=== PATIENT | female | born 1945 | race Caucasian/White ===

== ENCOUNTER 2017-05-21 16:45 | Inpatient (IN) | payer BC, OTHER ==
[~2017-05-21] VITALS: Ht 149.9 cm; Wt 63.7 kg
[2017-05-21] MEDS ORDERED: morphine 4 MG/ML VIAL IV STA (16:52)
[2017-05-21] MEDS ORDERED: ONDANSETRON 4 MG INJ IV STA ×2 (16:52→21:05)
[2017-05-21] MEDS ORDERED: SOD CHLORIDE 0.9% 1,000 ML IV STA (16:52)
--- NOTE | 2017-05-21 17:11 | ERD ---
ER Documentation Chief Complaint Chief Complaint ABD PAIN SINCE MONDAY W/ N/V HPI This is a 72-year-old female with a known history of diverticulosis and hypertension who presents to the emergency department complaining of severe abdominal cramping that has been intermittent for the past 5 days. She indicated that 5 days ago while she was lying down sleeping. The pain awoke her from her sleep. She stated it was an intense cramping sensation, 10 out of 10 in intensity where she described it as labor pains. After several hours the pain improved but did not completely resolve. She indicated that she the following day had an episode of nonbloody nonbilious emesis but denies any loose stool or constipation. She indicates she has had pain like this in the past with her last episode of diverticulitis several years prior to arrival. She has had no fevers no shaking or chills. She has had a decrease in appetite. She denies any chest pain or pressure that radiates to the neck arm back or jaw. She has no shortness of breath at rest or exertion. She took Advil but this did not improve the pain. She indicated that just prior to arrival she had a recurrence of the severe abdominal cramping which prompted her to call 911 and was brought to the emergency department for further evaluation. ROS All systems reviewed and are negative except as per history of present illness. Medications Home Meds No Active Prescriptions or Reported Meds Allergies Allergies: Coded Allergies: Penicillins (Verified Allergy, Unknown, RASH HIVES, 05/21/17) acetaminophen (Verified Allergy, Unknown, SWELLING, 05/21/17) propoxyphene (Verified Allergy, Unknown, SWELLING, 05/21/17) meperidine (Verified Adverse Reaction, Unknown, N/V, 05/21/17) propantheline (Unverified Adverse Reaction, Unknown, UNABLE TO URINATE, ) Physical Exam Vitals Vital Signs Date Time Temp Pulse Resp B/P Pulse Ox O2 Delivery O2 Flow Rate FiO2 05/21/17 19:38 99.0 77 18 137/72 98 Room Air 05/21/17 16:51 98.2 120 17 131/74 97 Physical Exam Constitutional:Well-developed. Well-nourished. HEENT:Normocephalic. Atraumatic.Pupils were equal round reactive to light. Dry mucous membranes.No tonsillar exudates. Neck: No nuchal rigidity. No lymphadenopathy. No posterior cervical spine tenderness or step-offs. Respiratory: Not using accessory muscles of respiration.Lungs were clear to auscultation bilaterally. No rhonchi. No rales. No wheezing. Cardiovascular: Regular rate regular rhythm.No murmurs. No rubs were appreciated.S1, S2 normal. Distal pulses are palpable 2+ bilaterally. GI: Abdomen was soft. Tenderness in the left lower quadrant with no rebound or guarding. Non Distended. No pulsatile abdominal masses or bruits. No rebound. No guarding. Bowel sounds were present and normal. Muscle skeletal: Full range of motion of both the upper and lower extremities bilaterally.Normal muscle tone.No assymetrical calf tenderness or swelling. Skin: No petechia, no purpura. No lesions on the palms or the soles of the feet. No maculopapular rash. NEURO: Patient was alert, awake, orientated x3.No facial droop. Gait observed and normal with no ataxia.Speech had regular rate and rhythm. No focal neurological deficits. Result Diagram: 05/21/17 1700 05/21/17 1700 Results 24 hrs Laboratory Tests Test 05/21/17 17:00 05/21/17 17:14 White Blood Count 3.710^3/ul Red Blood Count 4.5810^6/ul Hemoglobin 15.2g/dl Hematocrit 44.9% Mean Corpuscular Volume 98.0fl Mean Corpuscular Hemoglobin 33.2pg Mean Corpuscular Hemoglobin Concent 33.9g/dl Red Cell Distribution Width 13.0% Platelet Count 64569^3/UL Mean Platelet Volume 10.6fl Neutrophils % 71.6% Lymphocytes % 17.8% Monocytes % 9.3% Eosinophils % 0.3% Basophils % 0.5% Nucleated Red Blood Cells % 0.0/100WBC Neutrophils # 2.610^3/ul Lymphocytes # 0.710^3/ul Monocytes # 0.310^3/ul Eosinophils # 0.010^3/ul Basophils # 0.010^3/ul Nucleated Red Blood Cells # 0.010^3/ul Prothrombin Time 11.8Sec Prothrombin Time Ratio 0.9 INR International Normalized Ratio 0.87 Activated Partial Thromboplast Time 20.1Sec Sodium Level 139mmol/L Potassium Level 3.6mmol/L Chloride Level 97mmol/L Carbon Dioxide Level 28mmol/L Anion Gap 18 Blood Urea Nitrogen 31mg/dl Creatinine 0.84mg/dl Glucose Level 141mg/dl Calcium Level 9.2mg/dl Total Bilirubin 3.3mg/dl Direct Bilirubin 0.60mg/dl Indirect Bilirubin 2.7mg/dl Aspartate Amino Transf (AST/SGOT) 201IU/L Alanine Aminotransferase (ALT/SGPT) 172IU/L Alkaline Phosphatase 123IU/L Troponin I < 0.012ng/ml Total Protein 7.5g/dl Albumin 4.2g/dl Globulin 3.30g/dl Albumin/Globulin Ratio 1.27 Amylase Level 62U/L Lipase 58U/L Lactic Acid Level 2.1mmol/L Current Medications Medications (Trade) Dose Ordered Sig/Raegan Route PRN Reason Start Time Stop Time Status Last Admin Dose Admin Sodium Chloride (NS) 1,000 ml @ 1,000 mls/hr Q1H STAT IV 05/21/17 16:52 05/21/17 17:51 DC 05/21/17 17:29 Morphine Sulfate (morphine) 4 mg ONCE STAT IV 05/21/17 16:52 05/21/17 16:53 Cancel Ondansetron HCl (Zofran Inj) 4 mg ONCE STAT IV 05/21/17 16:52 05/21/17 16:53 DC 05/21/17 17:29 Ketorolac Tromethamine (Toradol) 30 mg ONCE STAT IV 05/21/17 17:18 05/21/17 17:19 DC 05/21/17 17:29 Ketorolac Tromethamine (Toradol) 30 mg STK-MED ONCE .ROUTE 05/21/17 17:19 05/21/17 17:20 DC Sodium Chloride 1900 ml 1,900 ml BOLUS OVER 2 HOURS STAT IV* 05/21/17 17:47 05/21/17 18:01 DC 05/21/17 19:39 Ciprofloxacin/ Dextrose 200 ml @ 200 mls/hr ONCE STAT IVPB 05/21/17 17:47 05/21/17 18:46 DC 05/21/17 19:39 Metronidazole (Flagyl 500 Mg (Pmx)) 100 ml @ 100 mls/hr ONCE STAT IVPB 05/21/17 17:47 05/21/17 18:46 DC IV Flush 10 ml 10 ml STK-MED ONCE .ROUTE 05/21/17 18:05 05/21/17 18:06 DC 05/21/17 18:18 Sodium Chloride (NS) 100 ml @ ud STK-MED ONCE .ROUTE 05/21/17 18:05 05/21/17 18:06 DC 05/21/17 18:18 Iohexol (Omnipaque 300mg/ ml) 150 ml STK-MED ONCE .ROUTE 05/21/17 18:05 05/21/17 18:06 DC 05/21/17 18:19 Procedures/MDM This patient presented to the emergency department with abdominal pain and was seen and evaluated by myself. My differential diagnosis included but was not limited to abdominal aortic aneurysm, appendicitis, pancreatitis, perforated peptic ulcer, perforated viscus, Boerhaaves syndrome or visceral pain such as diverticulitis, DKA, esophagitis, hepatitis or bowel obstruction. The patient was placed on a pvc monitor, continuous pulse oximetry, and IV access was established by nursing staff. She was given IV Toradol she is refusing opiate analgesic medication. 12 Lead EKG tracing ordered and reviewed by myself showed: Sinus tachycardia 110 bpm and no arrhythmia. AK interval normal. QRS duration normal. No ST segment elevation No ST segment depression. No changes consistent with acute ischemia. The CT scan ordered and reviewed by myself as well as the radiologist indicated that the findings were consistent with a high-grade small bowel obstruction. There is a single loop of fluid filled dilated small bowel in the location of the transition point that was concerning for possible strangulation. At this time I placed an immediate surgical consult to Dr. Mi. An NG tube was placed and roughly 800 cc of greenish gastric contents were suctioned. The patient had improvement of her discomfort. Blood cultures and urine cultures were obtained. The patient had transaminitis with an elevated lactate and was treated for sepsis. The patient received ciprofloxacin and Flagyl due to her allergy to penicillin patient had recurrent repeat abdominal examinations performed by myself at bedside. She no longer had peritoneal signs. She will be admitted to the ICU in serious condition with an anticipated stay of greater than [address] Mi will receive updates from nursing staff if her symptoms change. She will be admitted to the panel physician Dr. Lats. Patient's infectious symptoms have not stabilized and the patient is at risk of rapid decompensation. The patient will be admitted for careful hydration, antibiotic therapy, and infectious source control. Severe Sepsis Assessment: Infectious Source: SBO End organ damage indicated by: Lactate > 2.0 mmol/L Hypotension( SBP < 90 or >40 mmHG drop or MAP < 65) Severe Sepsis Managment: Blood Cultures X 2 before broad spectrum antibiotics initiated within 3 hours of recognition. 30 ml/kg NS bolus Completed Initial Lactate: 2.1 Repeat Lactate pending I considered further perfusion assessment with CVP measurement, SCVO2, bedside ultrasound volume assessment, passive leg raise, trial of further fluid bolus. And preceded with IV fluids Critical Care: Time: 60 minutes Treatments/Evaluations: Close monitoring and treatment of unstable vital signs, cardiorespiratory, and neurologic status, while maintaining tight balance of fluid, respiratory, and cardiac interventions. Time does not include performing any of the above billable procedures. Departure Diagnosis: Primary Impression: SBO (small bowel obstruction) Condition: MACO Yanes May 21, 2017 17:11
[2017-05-21] MEDS ORDERED: KETOROLAC 30 MG INJ IV STA (17:18)
[2017-05-21] MEDS ORDERED: KETOROLAC 30 MG INJ ONE (17:19)
[2017-05-21 17:26] LABS: BASOPHILS % 0.5 % (0.0-2.0); EOSINOPHILS % 0.3 % (0.0-7.0); HEMATOCRIT 44.9 % (37.0-47.0); HEMOGLOBIN 15.2 g/dl (12.0-16.0); LYMPHOCYTES # 0.7 10^3/ul (0.8-2.9); LYMPHOCYTES % 17.8 % (15.0-51.0); MEAN CORPUSCULAR HEMOGLOBIN 33.2 pg (29.0-33.0); MEAN CORPUSCULAR HGB CONC 33.9 g/dl (32.0-37.0); MEAN PLATELET VOLUME 10.6 fl (7.4-10.4); MONOCYTE # 0.3 10^3/ul (0.3-0.9); MONOCYTES % 9.3 % (0.0-11.0); NEUTROPHIL # 2.6 10^3/ul (1.6-7.5); NEUTROPHILS % 71.6 % (39.0-77.0); PLATELET COUNT 328 10^3/UL (140-415); RED BLOOD COUNT 4.58 10^6/ul (4.20-5.40); WHITE BLOOD COUNT 3.7 10^3/ul (4.8-10.8)
--- NOTE | 2017-05-21 17:29 | RADRPT ---
PROCEDURE: XR Chest. CLINICAL INDICATION: Abdominal pain TECHNIQUE: Single frontal view of the chest was obtained COMPARISON: None FINDINGS: The heart and mediastinum are within normal limits. The lungs are clear. There is no pleural effusion or pneumothorax. There are partially visualized moderately dilated loops of small bowel. RPTAT: AA IMPRESSION: No focal infiltrate. Partially visualized moderately dilated loops of small bowel. Further evaluation with CT of the abdomen is recommended. .Esteban Hutchins MD, MD Date Time Electronically viewed and signed by .Esteban Hutchins MD, on 05/21/2017 17:29 .S/
[2017-05-21 17:41] LABS: INR 0.87; PROTIME 11.8 Sec (12.2-14.2); PT RATIO 0.9
[2017-05-21 17:42] LABS: PARTIAL THROMBOPLASTIN TIME 20.1 Sec (25.0-35.0)
[2017-05-21] MEDS ORDERED: SODIUM CHLORIDE 0.9% 1L BAG IV* STA (17:47)
[2017-05-21] MEDS ORDERED: CIPROFLOXACIN 400MG/D5W 200 ML IVPB STA (17:47)
[2017-05-21] MEDS ORDERED: metroNIDAZOLE 500 MG/NS (PMX) 100 ML IVPB STA (17:47)
[2017-05-21 17:57] LABS: ALANINE AMINOTRANSFERASE 172 IU/L (13-69); ALBUMIN 4.2 g/dl (3.3-4.9); ALBUMIN/GLOBULIN RATIO 1.27; ALKALINE PHOSPHATASE 123 IU/L (42-121); AMYLASE 62 U/L (11-123); ANION GAP 18 (8-16); ASPARTATE AMINO TRANSFERASE 201 IU/L (15-46); BILIRUBIN,INDIRECT 2.7 mg/dl (0-1.1); BILIRUBIN,TOTAL 3.3 mg/dl (0.2-1.3); BLOOD UREA NITROGEN 31 mg/dl (7-20); CALCIUM 9.2 mg/dl (8.4-10.2); CARBON DIOXIDE 28 mmol/L (21-31); CHLORIDE 97 mmol/L (97-110); CREATININE 0.84 mg/dl (0.44-1.00); GLUCOSE 141 mg/dl (70-220); POTASSIUM 3.6 mmol/L (3.5-5.1); SODIUM 139 mmol/L (135-144); TOTAL PROTEIN 7.5 g/dl (6.1-8.1)
[2017-05-21] MEDS ORDERED: SOD CHLORIDE 0.9% 100 ML ONE (18:05)
[2017-05-21] MEDS ORDERED: IOHEXOL 300MG/ML 150 ML BTL ONE (18:05)
[2017-05-21 18:16] LABS: TROPONIN-I < 0.012 ng/ml (0.00-0.12)
--- NOTE | 2017-05-21 18:49 | RADRPT ---
PROCEDURE: CT ABDOMEN AND PELVIS WITH IV CONTRAST. CLINICAL INDICATION: Abdominal pain TECHNIQUE: CT scan of the abdomen and pelvis without contrast was performed on a multidetector hig h-resolution CT scanner following the use of IV contrast. 100 cc Omnipaque-300 was administered. Cor onal and sagittal reformatted images were obtained from the axial source images. Images were reviewe d on a high-resolution PACS workstation. The total exam CTDI equals 7.5 mGy and the total exam DLP e quals 401.7 mGy-cm. One or more of the following dose reduction techniques were used: Automated exposure control. Adjustment of the mA and/or kV according to patient size. Use of iterative reconstruction technique. COMPARISON: None FINDINGS: CT abdomen: Right lower lobe atelectasis and small right pleural effusion is noted. Heart size enlarged. No sign ificant pericardial effusion Hepatic morphology is within limits. There is mild perihepatic fluid. Multiple gallstones are noted within the gallbladder. No evidence of intrahepatic or traumatic dilatation. Spleen is unremarkable. The pancreas is atrophic. Both adrenal glands are within normal limits. Both kidneys are normal anatomic position. Left-sided parapelvic renal cysts are noted. The visualized GI tract demonstrates fluid-filled distension of the stomach and multiple loops of di lated small bowel. There is collapsed of loops of distal small bowel and large bowel. There appears to be a transition point within the mid lower abdomen/pelvis, at the level of the sacrum. There is f atty stranding and bowel wall enhancement of a single loop of small bowel containing fluid adjacent to the sigmoid colon. The aorta is unremarkable. No significant retroperitoneal lymphadenopathy. CT pelvis: The bladder is within limits. Uterus is not visualized. Free fluid is identified within the pelvis. No same pelvic lymphadenopathy. The visualized osseous structures demonstrate multilevel degenerative disease and anterolisthesis of L4-L5. IMPRESSION: 1. FINDINGS ARE CONSISTENT WITH HIGH-GRADE SMALL BOWEL OBSTRUCTION. There is collapsed loops of dist al small bowel and large bowel. There does to be a transition point within the mid lower abdomen/pel vis at the level of the sacrum. Consideration should include adhesions if there is history of prior surgery. 2. THERE IS A SINGLE LOOP OF FLUID-FILLED DILATED SMALL BOWEL IN THE LOCATION OF THE TRANSITION POIN T WITH ADJACENT FAT STRANDING AND BOWEL WALL ENHANCEMENT, CONCERNING FOR POSSIBLE STRANGULATION. Anjana ology should include underlying internal hernia or possible closed of obstruction. 3. Cholelithiasis. There is possible thickening of the gallbladder wall. Recommend correlation with ultrasound. 4. Upper abdominal ascites. 5. Right lower lobe atelectasis and small right pleural effusion. RPTAT: AAPP Physician Nataly Date Time Electronically viewed and signed by Bernice Ro Physician on 05/21/2017 18:49 PASCUAL/
[2017-05-21] MEDS ORDERED: ALBUTEROL/IPRATROPIUM (NEB) 3 ML AMP NEB PRN (21:00)
[2017-05-21] MEDS ORDERED: ONDANSETRON 4 MG INJ IV PRN (21:00)
[2017-05-21] MEDS ORDERED: LORAZEPAM 2 MG INJ IV PRN (21:00)
[2017-05-21] MEDS ORDERED: morphine 2 MG INJ IV PRN (21:00)
[2017-05-21] MEDS ORDERED: HYDROmorphONE 0.5 MG/0.5 ML SYG IV STA (21:05)
[2017-05-21 21:29] VITALS: TEMP 98.5
[2017-05-21 21:50] VITALS: BP 123/67; PULSE 90; RESP 17
[2017-05-21 22:07] VITALS: PULSE 94
[2017-05-21 22:30] VITALS: PULSE 84; RESP 19
[2017-05-21 23:00] VITALS: BP 105/71; PULSE 85; RESP 19
[2017-05-21 23:30] VITALS: BP 105/69; PULSE 88; RESP 17
[2017-05-21 23:31] VITALS: Ht 149.9 cm; Wt 63.7 kg
[2017-05-22] VITALS (43 sets, daily range): BP systolic 78–124; BP diastolic 38–94; PULSE 83–112; RESP 15–30
[2017-05-22] MEDS: DEXTROSE 5%-0.45% NACL 1,000 ML IV SCH ×3 (02:49→22:45)
[2017-05-22] MEDS: metroNIDAZOLE 500 MG/NS (PMX) 100 ML IVPB SCH ×4 (03:12→22:48)
[2017-05-22 05:54] LABS: HEMATOCRIT 38.8 % (37.0-47.0); HEMOGLOBIN 12.7 g/dl (12.0-16.0); MEAN CORPUSCULAR HEMOGLOBIN 32.3 pg (29.0-33.0); MEAN CORPUSCULAR HGB CONC 32.7 g/dl (32.0-37.0); MEAN CORPUSCULAR VOLUME 98.7 fl (82.0-101.0); MEAN PLATELET VOLUME 10.8 fl (7.4-10.4); PLATELET COUNT 240 10^3/UL (140-415); RED BLOOD COUNT 3.93 10^6/ul (4.20-5.40); RED CELL DISTRIBUTION WIDTH 13.1 % (11.5-14.5); WHITE BLOOD COUNT 6.2 10^3/ul (4.8-10.8)
[2017-05-22] MEDS ORDERED: PANTOPRAZOLE 40 MG INJ IV SCH (06:00)
[2017-05-22 06:10] LABS: INR 1.04; PARTIAL THROMBOPLASTIN TIME 24.7 Sec (25.0-35.0); PROTIME 13.6 Sec (12.2-14.2); PT RATIO 1.1
--- NOTE | 2017-05-22 06:14 | HP ---
Date/Time of Note Date/Time of Note DATE: 05/22/17 TIME: 06:06 Assessment/Plan VTE Prophylaxis VTE Prophylaxis Intervention: SCD's Lines/Catheters IV [facility] Peripheral IV Urinary Cath still in place: No Assessment/Plan Assessment/Plan ASSESSMENT 72-year-old female with a history of hypertension, diverticulosis, abd surgery for emdometriosis, RAVEN-BSO, appendectomy who presents with abdominal pain now with high-grade small bowel obstruction with possible strangulation PLAN ICU monitoring Keep n.p.o. NG tube to low intermittent suction IV fluids and antibiotic pain management Awaiting surgical evaluation Will obtain RUQ ultrasound given abnormal LFTs and cholelithiasis with possible gallbladder wall thickening shown CT HPI/ROS Admit Date/Time Admit Date/Time May 21, 2017 at 20:05 Hx of Present Illness This is a 72-year-old female with a history of hypertension, diverticulosis, abd surgery for emdometriosis, RAVEN-BSO, appendectomy who presented to the ER complaining of abdominal pain times almost 1 week. She also reported having had nonbloody nonbilious vomiting. Denied diarrhea or constipation. Pain acutely severely worsened and as such she decided to come to the ER for evaluation. CT abdomen/pelvis in the ER showed high grade small bowel obstruction with possible strangulation and cholelithiasis with possible gallbladder wall thickening. An NG tube was placed and about 800 cc of gastric contents was aspirated while she was in the ER. She was initially tachycardic with a heart rate of 120 and otherwise rest of her vitals were stable. Labs shows a WBC of 3.7, total bilirubin 3.3 was direct 0.6, AST 201, ALT 172 with alk phos of 128 and normal lipase of 58. Initial lactic acid was 2.1 which normalized to 1.2. PMH/Family/Social Social History Smoking Status: Never smoker Exam/Review of Systems Vital Signs Vitals Vital Signs Date Time Temp Pulse Resp B/P Pulse Ox O2 Delivery O2 Flow Rate FiO2 05/22/17 04:00 98.0 85 25 108/58 95 Room Air Intake and Output 05/21/17 05/21/17 05/22/17 15:00 23:00 07:00 Intake Total 1060 ml Balance 1060 ml Exam Constitutional: alert, oriented, well developed Head: atraumatic, normocephalic Eyes: EOMI, PERRL ENMT: other (NG tube in place) Respiratory: clear to auscultation, normal air movement Cardiovascular: regular rate and rhythm Gastrointestinal: soft, tender Extremities: normal pulses Labs Result Diagram: 05/21/17 1700 05/21/17 1700 Medications Medications Current Medications Dextrose/Sodium Chloride (D5-1/2ns) 1,000 ml @ 80 mls/hr [id number] IV Last administered on 05/22/17 02:49; Admin Dose 80 MLS/HR; Start 05/21/17 at 20:46 Ondansetron HCl (Zofran Inj) 4 mg Q6H PRN IV NAUSEA AND/OR VOMITING; Start 06/25 at 21:00 Morphine Sulfate (morphine) 2 mg Q4H PRN IV PAIN LEVEL 7-10; Start 05/21/17 at 21:00 Lorazepam (Ativan) 1 mg Q2H PRN IV ANXIETY; Start 05/21/17 at 21:00 Pantoprazole 40 mg 40 mg DAILY@06 IV Last administered on 05/22/17 05:54; Admin Dose 40 MG; Start 05/22/17 at 06:00 Ciprofloxacin/ Dextrose 200 ml @ 200 mls/hr Q12 IVPB ; Start 05/22/17 at 09:00 Metronidazole (Flagyl 500 Mg (Pmx)) 100 ml @ 100 mls/hr Q8 IVPB Last administered on 05/22/17 05:54; Admin Dose 100 MLS/HR; Start 05/22/17 at 03: 00 FITZ KELLY MD May 22, 2017 06:14
[2017-05-22 06:35] LABS: ALBUMIN 2.7 g/dl (3.3-4.9); BILIRUBIN,DIRECT 0.4 mg/dl (0.00-0.20); BILIRUBIN,INDIRECT 2.4 mg/dl (0-1.1); BILIRUBIN,TOTAL 2.8 mg/dl (0.2-1.3); CALCIUM 8.3 mg/dl (8.4-10.2); CREATININE 0.72 mg/dl (0.44-1.00); POTASSIUM 3.9 mmol/L (3.5-5.1); TOTAL PROTEIN 5.4 g/dl (6.1-8.1)
[2017-05-22 06:51] LABS: POSITIVE DIFF @See below
[2017-05-22 07:19] LABS: CALCIUM 8.1 mg/dl (8.4-10.2); PHOSPHORUS 3.7 mg/dl (2.5-4.9)
--- NOTE | 2017-05-22 08:16 | RADRPT ---
PROCEDURE: US Abdomen. CLINICAL INDICATION: abdominal pain TECHNIQUE: Multiple real-time images were acquired of the patient's right upper quadrant abdomen a nd retroperitoneum utilizing a high resolution transducer. COMPARISON: CT 05/21/2017 FINDINGS: The liver demonstrates normal echogenicity. The liver is normal in size and no focal solid lesions are seen. The liver measures 13.8 cm in length. The portal vein is patent with normal direction of f low. No intrahepatic biliary dilatation is seen. Multiple calcified gallstones are identified within the gallbladder. There is no pericholecystic fl uid or gallbladder wall thickening. The common bile duct measures 3 mm in maximal dimension. The pancreas was not seen due to overlying bowel gas. There is a right pleural effusion and a small amount of ascites. The right kidney is normal in size, and demonstrate normal echogenicity and cortical thickness. The right kidney measures 9.0 cm in long dimension. There is no evidence of hydronephrosis. There are no kidney stones. RPTAT: AA IMPRESSION: Cholelithiasis. Small amount of ascites and right pleural effusion. .Esteban Hutchins MD, MD Date Time Electronically viewed and signed by .Esteban Hutchins MD, on 05/22/2017 08:16 .S/
[2017-05-22 09:12] LABS: ERYTHROBLAST% (NRBC) (M) 1 % (0-0); GIANT THROMBO% (M) 2 % (0-0); METAMYELOCYTES %M 3 % (0-0); MONOCYTES % (M) 8 % (0-11); PLATELET ESTIMATE NORMAL; POLYCHROMASIA 3+ (0-0)
[2017-05-22] MEDS: CIPROFLOXACIN 400MG/D5W 200 ML IVPB SCH ×2 (09:18→20:36)
--- NOTE | 2017-05-22 11:57 | PN ---
Date/Time of Note Date/Time of Note DATE: 05/22/17 TIME: 11:53 Assessment/Plan VTE Prophylaxis VTE Prophylaxis Intervention: SCD's Lines/Catheters IV Catheter Type (from [facility]): Peripheral IV Urinary Cath still in place: No Assessment/Plan Assessment/Plan 72-year-old female with a history of hypertension, diverticulosis, abd surgery for endometriosis, RAVEN-BSO, appendectomy presented with abdominal pain found to have high-grade SBO with possible strangulation #SBO with possible strangulation -general surgery contacted overnight, await formal note -cont NG to LIS -cont abx -cont NPO #transaminitis -abd US with just cholecystitis -check viral hepatitis serologies and continue to trend transfer to floor, await gen surg recs Subjective 24 Hr Interval Summary Free Text/Dictation having lower abd cramping Exam/Review of Systems Vital Signs Vitals Vital Signs Date Time Temp Pulse Resp B/P Pulse Ox O2 Delivery O2 Flow Rate FiO2 05/22/17 10:30 88 21 94/56 93 Room Air 05/22/17 08:00 98.1 Intake and Output 05/21/17 05/21/17 05/22/17 15:00 23:00 07:00 Intake Total 1220 ml Output Total 0 ml Balance 1220 ml Exam uncomfortable, wearing sunglasses lungs clear abd tender to palpation in all quadrants, no bowel sounds appreciated no rashes no edema Results Result Diagram: 05/22/17 0530 05/22/17 0530 Results 24 hrs Laboratory Tests Test 05/21/17 17:00 05/21/17 17:14 05/21/17 22:24 05/22/17 05:30 White Blood Count 3.7 L 6.2 # Red Blood Count 4.58 3.93 L Hemoglobin 15.2 12.7 Hematocrit 44.9 38.8 Mean Corpuscular Volume 98.0 98.7 Mean Corpuscular Hemoglobin 33.2 H 32.3 Mean Corpuscular Hemoglobin Concent 33.9 32.7 Red Cell Distribution Width 13.0 13.1 Platelet Count 328 240 # Mean Platelet Volume 10.6 H 10.8 H Neutrophils % 71.6 Lymphocytes % 17.8 Monocytes % 9.3 Eosinophils % 0.3 Basophils % 0.5 Nucleated Red Blood Cells % 0.0 1 H Neutrophils # 2.6 Lymphocytes # 0.7 L Monocytes # 0.3 Eosinophils # 0.0 Basophils # 0.0 Nucleated Red Blood Cells # 0.0 Prothrombin Time 11.8 L 13.6 Prothrombin Time Ratio 0.9 1.1 INR International Normalized Ratio 0.87 1.04 Activated Partial Thromboplast Time 20.1 L 24.7 L Sodium Level 139 139 Potassium Level 3.6 3.9 Chloride Level 97 106 Carbon Dioxide Level 28 26 Anion Gap 18 H 11 # Blood Urea Nitrogen 31 H 24 H Creatinine 0.84 0.72 Glucose Level 141 114 Calcium Level 9.2 8.3 L Total Bilirubin 3.3 H 2.8 H Direct Bilirubin 0.60 H 0.40 #H Indirect Bilirubin 2.7 H 2.4 H Aspartate Amino Transf (AST/SGOT) 201 H 108 H Alanine Aminotransferase (ALT/SGPT) 172 H 136 H Alkaline Phosphatase 123 H 84 Troponin I < 0.012 Total Protein 7.5 5.4 #L Albumin 4.2 2.7 #L Globulin 3.30 H 2.70 Albumin/Globulin Ratio 1.27 1.00 Amylase Level 62 Lipase 58 26 Lactic Acid Level 2.1 H 1.2 1.2 Segmented Neutrophils % (Manual) 32 L Band Neutrophils % (Manual) 43 H Lymphocytes % (Manual) 14 L Monocytes % (Manual) 8 Metamyelocytes % (manual) 3 H Neutrophils # (Manual) 2.1 Band Neutrophils # 2.6 H Absolute Lymphocytes (Manual) 0.8 Absolute Monocytes (Manual) 0.4 Metamyelocytes # 0.1 H Platelet Estimate NORMAL Giant Platelets 2 H Polychromasia 3+ Phosphorus Level 3.7 Magnesium Level 1.9 B-Type Natriuretic Peptide 695 H Medications Medications Current Medications Dextrose/Sodium Chloride (D5-1/2ns) 1,000 ml @ 80 mls/hr [id number] IV Last administered on 05/22/17t 02:49; Admin Dose 80 MLS/HR; Start 05/21/17 at 20:46 Ondansetron HCl (Zofran Inj) 4 mg Q6H PRN IV NAUSEA AND/OR VOMITING; Start 06/25 at 21:00 Morphine Sulfate (morphine) 2 mg Q4H PRN IV PAIN LEVEL 7-10; Start 05/21/17 at 21:00 Lorazepam 1 mg 1 mg Q2H PRN IV ANXIETY; Start 05/21/17 at 21:00 Ciprofloxacin/ Dextrose 200 ml @ 200 mls/hr Q12 IVPB Last administered on 09:18; Admin Dose 200 MLS/HR; Start 05/22/17 at 09:00 Metronidazole (Flagyl 500 Mg (Pmx)) 100 ml @ 100 mls/hr Q8 IVPB Last administered on 05/22/17 05:54; Admin Dose 100 MLS/HR; Start 05/22/17 at 03: 00 WARREN RICHARDS MD May 22, 2017 11:57
--- NOTE | 2017-05-22 12:03 | CONS ---
Date/Time of Note Date/Time of Note DATE: 05/22/17 TIME: 11:26 Assessment/Plan Assessment/Plan Additional Assessment/Plan [facility] INPATIENT CONSULTATION NOTE DATE OF SERVICE: 05/22/2017 PLACE OF SERVICE: [facility], ICU ASSESSMENT AND PLAN: A very-pleasant 72-year-old lady with a few comorbidities including multiple operations in the past, presenting with a picture consistent with high-grade small bowel obstruction. Patient has improved slightly since admission last night, but she still remains at high risk for needing surgical exploration. Since the patient's clinical picture is stable enough, I recommended that we continue monitoring the patient in the intensive care unit very closely and if the patient worsens or does not significantly improve by tomorrow, to change our plans and explored the abdomen. I explained all of the above to the patient and family and answered all questions. Patient and family appear to understand and agreed with plans. With above assessment, I've recommended the followin. Careful monitoring in the ICU 2. Strict I's and O's 3. Please make sure that the NG tube is working and flush it with 30 cc of normal saline every shift with adequate check for sump function 4. Every 6 hours lactic acid level checks 5. Please keep me up-to-date if any clinical worsening 6. Labs in a.m. 7. N.p.o. 8. Continue broad-spectrum antimicrobials Thank you very much for having me involved in the care of this very pleasant patient and wonderful family. If you have any questions, please feel free to contact me at [phone]. Nature of presenting problem: High severity Please note that, given the multiple number of diagnoses or management options, moderate amount and/or complexity of data needed to be reviewed, and high risk of complications and/or morbidity or mortality, this qualifies as moderate complexity type of decision-making. Disclaimers: 1. Inadvertent spelling and grammatical errors are likely due to electronic health record (EHR)/dictation software used and do not reflect on the quality of delivered patient care. 2. The electronic timestamp recorded on this note does not necessarily reflect the actual date and time of the visit or the service. 3. Portions of this note may have been created through electronic templates and computer algorithms that might bring in information either from the system or from other physicians and providers. Please note that such information may or may not contain errors, the occurrence of which are outside of my control. In general (but not always) this happens either in the beginning or at the end of the note. The portion of the note that I have created are generally done in 1 continuous block of text, flanked at the beginning and at the end by " ", and entered into one field in the EHR. 4. There may be other unanticipated errors in the note that are outside of my control. I can only attest to the portions of the note that I have created. Updated clinical summary: A very-pleasant 72-year-old lady with a few comorbidities including multiple operations in the past, presenting with a picture consistent with high-grade small bowel obstruction. Comorbidities: 1. BMI 28.4 2. Hypertension 3. Diverticulosis 4. Surgery for endometriosis 5. RAEVN/BSO 6. Appendectomy (patient mentioned malignancy in the 1970s, but did not have any further details; no recent issues with malignancy, weight loss or other major concerns) 7. Cholelithiasis 8. Albumin 2.7 after resuscitation CONSULTATION REQUESTED BY: Sincere Last MD HISTORY OF PRESENT ILLNESS: The patient is a very pleasant 72-year-old lady with above-mentioned comorbidities whom you kindly asked consult regarding management of small bowel obstruction. The patient was admitted through the emergency department to [facility] on 05/21/2017 with almost 1 week history of increasing abdominal discomfort with development of nausea and vomiting that seem to be getting worse and led to patient seeking help in the emergency department. Workup in the ED included laboratory values that showed normal white blood cell count and mild to moderate derangement in liver function and injury parameters with a bilirubin of 3.3 and AST of and ALT with elevation in the 150s-200s, but normal lipase of 58. Her lactic acid was 2.[address] scan was consistent with a high-grade obstruction of distal small bowel, possibly in the pelvis. I have carefully reviewed all of the information and instructed admission of the patient to the ICU with repeat lactic acid levels within 6 hours, which fortunately were normalized to 1.2. This was after fluid resuscitation. Patient's abdominal pain had improved with medications. She had remained stable overnight. During my visit with the patient, she reported ALLERGIES: Penicillins (Verified Allergy, Unknown, RASH HIVES, 05/21/17) acetaminophen (Verified Allergy, Unknown, SWELLING, 05/21/17) propoxyphene (Verified Allergy, Unknown, SWELLING, 05/21/17) meperidine (Verified Adverse Reaction, Unknown, N/V, 05/21/17) propantheline (Unverified Adverse Reaction, Unknown, UNABLE TO URINATE, ) MEDICATIONS Documented in the electronic records and reviewed by me. Please see the electronic records for details, as well as details for inpatient medications which were also reviewed by me. SOCIAL HISTORY: The patient lives with family.-Tob;-ETOH;-IVDU FAMILY HISTORY: There are no significant medical, surgical or oncologic issues in the family as reported by the patient or reflected in the chart. REVIEW OF SYSTEMS: Other than mentioned above, there were no other pertinent positives or pertinent negatives in an otherwise complete 14 point review of systems. PHYSICAL EXAMINATION GENERAL: The patient appears to be a very pleasant lady of non- descent lying in bed, appearing stated age, and otherwise in no acute distress. BMI: 28.4 VITAL SIGNS: AVSS (please also see auto important data if available as well as the electronic records) HEENT: Normocephalic and atraumatic. Extraocular muscles and hearing are grossly intact bilaterally and symmetrically. Sclerae are nonicteric. Oral cavity is clear; oral mucosa appear to be pink and moist. Dentition: Poor. NG with bilious nonbloody output. NECK: Supple. There is no lymphadenopathy or JVD. There is no submental, submandibular or supraclavicular lymphadenopathy. CHEST: Rises symmetrically with each breath; patient is breathing comfortably. There are no audible wheezes, rales or rhonchi on the gross exam. HEART: Pulse is regular and palpable on the right wrist. Capillary refill is normal. Carotid pulses are palpable bilaterally and symmetrically in the neck. EXTREMITIES: Lower extremities contain no pitting edema around the ankles bilaterally and symmetrically. ABDOMEN: Abdomen is soft, mild to moderately tender to palpation in all quadrants and nondistended. No evidence of ascites, organomegaly, caput medusae , engorged subcutaneous veins, or other abnormalities. There are no peritoneal signs or guarding. SKIN: Appears to be pink and feels warm to touch. NEUROLOGIC: Awake, alert, and follows commands appropriately. LABORATORY DATA: See below IMAGING: See electronic chart. Please note that I've personally reviewed all pertinent available images and I agree in general with their overall reported findings. CT scan abdomen and pelvis [facility] 05/21/2017 IMPRESSION: 1. FINDINGS ARE CONSISTENT WITH HIGH-GRADE SMALL BOWEL OBSTRUCTION. There is collapsed loops of distal small bowel and large bowel. There does to be a transition point within the mid lower abdomen/pelvis at the level of the sacrum. Consideration should include adhesions if there is history of prior surgery. 2. THERE IS A SINGLE LOOP OF FLUID-FILLED DILATED SMALL BOWEL IN THE LOCATION OF THE TRANSITION POINT WITH ADJACENT FAT STRANDING AND BOWEL WALL ENHANCEMENT, CONCERNING FOR POSSIBLE STRANGULATION. Etiology should include underlying internal hernia or possible closed of obstruction. 3. Cholelithiasis. There is possible thickening of the gallbladder wall. Recommend correlation with ultrasound. 4. Upper abdominal ascites. 5. Right lower lobe atelectasis and small right pleural effusion. Consultation Date/Type/Reason Admit Date/Time May 21, 2017 at 20:05 Social History Smoking Status: Never smoker Exam/Review of Systems Vital Signs Vitals Vital Signs Date Time Temp Pulse Resp B/P Pulse Ox O2 Delivery O2 Flow Rate FiO2 05/22/17 10:30 88 21 94/56 93 Room Air 05/22/17 08:00 98.1 Intake and Output 05/21/17 05/21/17 05/22/17 14:59 22:59 06:59 Intake Total 1220 ml Output Total 0 ml Balance 1220 ml Results Result Diagram: 05/22/17 0530 05/22/17 0530 Results 24 hrs Laboratory Tests Test 05/21/17 17:00 05/21/17 17:14 05/21/17 22:24 05/22/17 05:30 White Blood Count 3.7 L 6.2 # Red Blood Count 4.58 3.93 L Hemoglobin 15.2 12.7 Hematocrit 44.9 38.8 Mean Corpuscular Volume 98.0 98.7 Mean Corpuscular Hemoglobin 33.2 H 32.3 Mean Corpuscular Hemoglobin Concent 33.9 32.7 Red Cell Distribution Width 13.0 13.1 Platelet Count 328 240 # Mean Platelet Volume 10.6 H 10.8 H Neutrophils % 71.6 Lymphocytes % 17.8 Monocytes % 9.3 Eosinophils % 0.3 Basophils % 0.5 Nucleated Red Blood Cells % 0.0 1 H Neutrophils # 2.6 Lymphocytes # 0.7 L Monocytes # 0.3 Eosinophils # 0.0 Basophils # 0.0 Nucleated Red Blood Cells # 0.0 Prothrombin Time 11.8 L 13.6 Prothrombin Time Ratio 0.9 1.1 INR International Normalized Ratio 0.87 1.04 Activated Partial Thromboplast Time 20.1 L 24.7 L Sodium Level 139 139 Potassium Level 3.6 3.9 Chloride Level 97 106 Carbon Dioxide Level 28 26 Anion Gap 18 H 11 # Blood Urea Nitrogen 31 H 24 H Creatinine 0.84 0.72 Glucose Level 141 114 Calcium Level 9.2 8.3 L Total Bilirubin 3.3 H 2.8 H Direct Bilirubin 0.60 H 0.40 #H Indirect Bilirubin 2.7 H 2.4 H Aspartate Amino Transf (AST/SGOT) 201 H 108 H Alanine Aminotransferase (ALT/SGPT) 172 H 136 H Alkaline Phosphatase 123 H 84 Troponin I < 0.012 Total Protein 7.5 5.4 #L Albumin 4.2 2.7 #L Globulin 3.30 H 2.70 Albumin/Globulin Ratio 1.27 1.00 Amylase Level 62 Lipase 58 26 Lactic Acid Level 2.1 H 1.2 1.2 Segmented Neutrophils % (Manual) 32 L Band Neutrophils % (Manual) 43 H Lymphocytes % (Manual) 14 L Monocytes % (Manual) 8 Metamyelocytes % (manual) 3 H Neutrophils # (Manual) 2.1 Band Neutrophils # 2.6 H Absolute Lymphocytes (Manual) 0.8 Absolute Monocytes (Manual) 0.4 Metamyelocytes # 0.1 H Platelet Estimate NORMAL Giant Platelets 2 H Polychromasia 3+ Phosphorus Level 3.7 Magnesium Level 1.9 B-Type Natriuretic Peptide 695 H Medications Medications Current Medications Dextrose/Sodium Chloride (D5-1/2ns) 1,000 ml @ 80 mls/hr [id number] IV Last administered on 05/22/17t 02:49; Admin Dose 80 MLS/HR; Start 05/21/17 at 20:46 Ondansetron HCl (Zofran Inj) 4 mg Q6H PRN IV NAUSEA AND/OR VOMITING; Start 06/25 at 21:00 Morphine Sulfate (morphine) 2 mg Q4H PRN IV PAIN LEVEL 7-10; Start 05/21/17 at 21:00 Lorazepam 1 mg 1 mg Q2H PRN IV ANXIETY; Start 05/21/17 at 21:00 Ciprofloxacin/ Dextrose 200 ml @ 200 mls/hr Q12 IVPB Last administered on 09:18; Admin Dose 200 MLS/HR; Start 05/22/17 at 09:00 Metronidazole (Flagyl 500 Mg (Pmx)) 100 ml @ 100 mls/hr Q8 IVPB Last administered on 05/22/17 05:54; Admin Dose 100 MLS/HR; Start 05/22/17 at 03: 00 JOSE ENRIQUE GOMEZ M.D. May 22, 2017 12:03
[2017-05-22 14:20] LABS: HEPATITIS B CORE ANTIBODY NEGATIVE (NEGATIVE)
[2017-05-22] MEDS ORDERED: HYDROmorphONE 1 MG/ML SYG IV PRN (18:30)
[2017-05-22] MEDS: HYDROmorphONE 0.5 MG/0.5 ML SYG IV PRN ×2 (20:42→22:54)
[2017-05-23] VITALS (46 sets, daily range): BP systolic 68–134; BP diastolic 49–80; PULSE 94–118; RESP 10–31
[2017-05-23] MEDS: metroNIDAZOLE 500 MG/NS (PMX) 100 ML IVPB SCH ×3 (05:44→21:01)
[2017-05-23 06:05] LABS: HEMATOCRIT 35.9 % (37.0-47.0); HEMOGLOBIN 12.2 g/dl (12.0-16.0); MEAN PLATELET VOLUME 11.4 fl (7.4-10.4); PLATELET COUNT 236 10^3/UL (140-415); RED CELL DISTRIBUTION WIDTH 13.2 % (11.5-14.5); WHITE BLOOD COUNT 7.7 10^3/ul (4.8-10.8)
[2017-05-23 06:19] LABS: INR 1.12; PARTIAL THROMBOPLASTIN TIME 29.9 Sec (25.0-35.0); PROTIME 14.4 Sec (12.2-14.2); PT RATIO 1.1
[2017-05-23 06:21] LABS: POSITIVE DIFF @See below
[2017-05-23 06:27] LABS: ALBUMIN 2.6 g/dl (3.3-4.9); ALBUMIN/GLOBULIN RATIO 0.86; BILIRUBIN,INDIRECT 1.3 mg/dl (0-1.1); BILIRUBIN,TOTAL 1.3 mg/dl (0.2-1.3); CALCIUM 8.3 mg/dl (8.4-10.2); CREATININE 0.59 mg/dl (0.44-1.00); POTASSIUM 3.3 mmol/L (3.5-5.1); TOTAL PROTEIN 5.6 g/dl (6.1-8.1)
[2017-05-23 06:33] LABS: MAGNESIUM 1.7 mg/dl (1.7-2.5); PHOSPHORUS 2.7 mg/dl (2.5-4.9)
[2017-05-23] MEDS: CIPROFLOXACIN 400MG/D5W 200 ML IVPB SCH ×2 (08:38→21:01)
--- NOTE | 2017-05-23 09:00 | RADRPT ---
PROCEDURE: Abdominal radiograph CLINICAL INDICATION: Small bowel obstruction. COMPARISON: CT from 05/21/2017. TECHNIQUE: AP view of the abdomen. FINDINGS: Multiple loops of small bowel within the upper, mid, lower abdomen are distended with air to 3.7 cm. Multiple loops of stenting small bowel. No large bowel distension with stool. No fluid levels. No suspicious calcifications. No suspicious bone abnormality. IMPRESSION: Continued air distension involving multiple loops of small bowel consistent with small bowel obstruc tion. RPTAT: PP Physician Tara Date Time Electronically viewed and signed by Physician Traa on 05/23/2017 09:00 LG/
--- NOTE | 2017-05-23 09:13 | PN ---
Date/Time of Note Date/Time of Note DATE: 05/23/17 TIME: 09:13 Assessment/Plan VTE Prophylaxis VTE Prophylaxis Intervention: SCD's Lines/Catheters IV Catheter Type (from Nrsg): Peripheral IV Urinary Cath still in place: Yes Reason Cath still needed: other (indicate) (unclear) Assessment/Plan Assessment/Plan 72-year-old female with a history of diverticulosis, abd surgery for endometriosis, RAVEN-BSO, appendectomy presented with abdominal pain found to have high-grade SBO with possible strangulation #SBO with possible strangulation -general surgery on consult -cont NG to LIS -cont abx -cont NPO -replete lytes PRN #transaminitis: improving rationale for price unclear, ?AUR? transfer to floor as per gen surg critical care time: 30 minutes Subjective 24 Hr Interval Summary Free Text/Dictation Pt reports improvement in abd pain. Still no flatus or BM Exam/Review of Systems Vital Signs Vitals Vital Signs Date Time Temp Pulse Resp B/P Pulse Ox O2 Delivery O2 Flow Rate FiO2 05/23/17 07:30 97.9 102 25 97/62 92 Room Air Intake and Output 05/22/17 05/22/17 05/23/17 15:00 23:00 07:00 Intake Total 770 ml 250 ml 200 ml Output Total 500 ml 200 ml 850 ml Balance 270 ml 50 ml -650 ml Exam nad, wearing sunglasses no mrg lungs clear abd much less ttp, no BS appreciated, area of greatest tenderness is RUQ no rashes no edema imaging noted Results Result Diagram: 05/23/17 0457 05/23/17 0457 Results 24 hrs Laboratory Tests Test 05/22/17 12:50 05/22/17 20:55 05/23/17 00:35 05/23/17 04:57 Hepatitis B Surface Antigen NEGATIVE Hepatitis B Surface Antibody NEGATIVE Hepatitis B Core Total Antibody NEGATIVE Hepatitis C Antibody NEGATIVE Lactic Acid Level 0.9 0.9 1.1 White Blood Count 7.7 # Red Blood Count 3.70 L Hemoglobin 12.2 Hematocrit 35.9 L Mean Corpuscular Volume 97.0 Mean Corpuscular Hemoglobin 33.0 Mean Corpuscular Hemoglobin Concent 34.0 Red Cell Distribution Width 13.2 Platelet Count 236 Mean Platelet Volume 11.4 H Neutrophils % Lymphocytes % Monocytes % Eosinophils % Basophils % Nucleated Red Blood Cells % 0.0 Neutrophils # Lymphocytes # Monocytes # Eosinophils # Basophils # Nucleated Red Blood Cells # Prothrombin Time 14.4 H Prothrombin Time Ratio 1.1 INR International Normalized Ratio 1.12 Activated Partial Thromboplast Time 29.9 Sodium Level 136 Potassium Level 3.3 L Chloride Level 105 Carbon Dioxide Level 24 Anion Gap 10 Blood Urea Nitrogen 17 Creatinine 0.59 Glucose Level 122 Calcium Level 8.3 L Phosphorus Level 2.7 Magnesium Level 1.7 Total Bilirubin 1.3 Direct Bilirubin 0.00 # Indirect Bilirubin 1.3 H Aspartate Amino Transf (AST/SGOT) 38 Alanine Aminotransferase (ALT/SGPT) 79 H Alkaline Phosphatase 64 B-Type Natriuretic Peptide 417 H Total Protein 5.6 L Albumin 2.6 L Globulin 3.00 Albumin/Globulin Ratio 0.86 Medications Medications Current Medications Dextrose/Sodium Chloride (D5-1/2ns) 1,000 ml @ 80 mls/hr [id number] IV Last administered on 05/22/17 22:45; Admin Dose 80 MLS/HR; Start 05/21/17 at 20:46 Ondansetron HCl 4 mg 4 mg Q6H PRN IV NAUSEA AND/OR VOMITING; Start 05/21/17 at 21:00 Ciprofloxacin/ Dextrose 200 ml @ 200 mls/hr Q12 IVPB Last administered on 08:38; Admin Dose 200 MLS/HR; Start 05/22/17 at 09:00 Metronidazole (Flagyl 500 Mg (Pmx)) 100 ml @ 100 mls/hr Q8 IVPB Last administered on 05/23/17 05:44; Admin Dose 100 MLS/HR; Start 05/22/17 at 03: 00 Hydromorphone HCl (Dilaudid) 0.5 mg Q2H PRN IV PAIN (4-7/10) Last administered on 05/22/17 22:54; Admin Dose 0.5 MG; Start 05/22/17 at 18:30 Hydromorphone HCl (Dilaudid) 1 mg Q2H PRN IV PAIN (8-10/10); Start 05/22/17 at 18:30 WARREN RICHARDS MD May 23, 2017 09:13
[2017-05-23] MEDS ORDERED: POTASSIUM CHLORIDE 250 ML IVPB ONE (09:30)
[2017-05-23] MEDS: HYDROmorphONE 0.5 MG/0.5 ML SYG IV PRN ×2 (09:42→19:41)
[2017-05-23] MEDS ORDERED: BUPIVACAINE 0.5%/EPI (SDV) 30 ML INJ ONE (10:08)
[2017-05-23] MEDS ORDERED: BUPIVACAINE 0.25% (MPF) 30 ML INJ ONE (10:20)
[2017-05-23] MEDS: DEXTROSE 5%-0.45% NACL 1,000 ML IV SCH (10:33)
[2017-05-23] MEDS ORDERED: IOHEXOL 300MG/ML 30 ML BTL ONE (12:04)
--- NOTE | 2017-05-23 14:01 | HPN ---
Date/Time of Note Date/Time of Note DATE: 05/23/17 TIME: 14:01 Interval H&P Admission Note Pt. seen H&P reviewed: No system changes Pt. seen H&P reviewed. No system changes (I attest that I have seen and examined the patient and reviewed the operation in detail, as well as its risks , benefits and alternatives of the operation). I attest that I have seen and examined the patient and reviewed in detail the operation, and its associated risks, benefits and alternative. I have answered all the patient's questions to the best of my ability and the patient wishes to proceed. Please refer to rest of electronic medical record for additional updates. JOSE ENRIQUE GOMEZ M.D. May 23, 2017 14:01
[2017-05-23] MEDS ORDERED: ROCURONIUM 50 MG INJ ONE ×2 (14:58→17:31)
[2017-05-23] MEDS ORDERED: FENTAnyl 50 MCG/ML VIAL ONE (14:58)
[2017-05-23] MEDS ORDERED: SUCCINYLCHOLINE CHLORIDE 100 MG/5 ML SYG IV ONE (14:58)
[2017-05-23] MEDS ORDERED: LIDOCAINE 2% (SDV) 5 ML INJ ONE (14:58)
[2017-05-23] MEDS ORDERED: PROPOFOL 20 ML ONE (14:58)
[2017-05-23] MEDS ORDERED: MIDAZOLAM 1 MG/ML 2 ML INJ ONE (14:58)
[2017-05-23] MEDS ORDERED: PHENYLephrine (100 MCG/ML) 5ML SYG ONE ×4 (15:15→17:43)
[2017-05-23] MEDS ORDERED: DEXAMETHASONE 4 MG/ML 1 ML INJ ONE (16:21)
[2017-05-23] MEDS ORDERED: ONDANSETRON 4 MG INJ ONE (16:21)
[2017-05-23] MEDS ORDERED: HYDROmorphONE 2 MG/ML SYG ONE (16:21)
--- NOTE | 2017-05-23 17:10 | RADRPT ---
PROCEDURE: Small bowel follow-through. CLINICAL INDICATION: Small bowel obstruction. TECHNIQUE: Water-soluble contrast was administered by the nasogastric tube and several radiographs of the abdomen were obtained. This is an incomplete study as the patient went to the operating room approximately 1 hour following contrast injection. COMPARISON: CT scan of the abdomen and pelvis dated 05/21/2017. FINDINGS: The nasogastric tube tip is in the stomach. There is dilated small bowel throughout the abdomen and pelvis. Contrast is present in the stomach and proximal jejunum. IMPRESSION: 1. Small bowel obstruction with dilated small bowel throughout the abdomen and pelvis. 2. Nasogastric tube tip in the stomach. 3. The study is incomplete as the patient with to the operating room approximately 1 hour following contrast injection into the stomach. RPTAT: QQ .Mian Harvey MD, MD Date Time Electronically viewed and signed by .Mian Harvey MD, on 05/23/2017 17:09 .R/
[2017-05-23] MEDS ORDERED: EPHEDrine SULFATE 50 MG/5 ML SYG ONE (17:16)
[2017-05-23] MEDS: D5W-0.45 NACL + KCL 20 MEQ 1,000 ML IV SCH (18:28)
[2017-05-23] MEDS ORDERED: DOCUSATE SODIUM 100 MG CAP PO PRN (18:30)
[2017-05-23] MEDS ORDERED: HYDROmorphONE 1 MG/ML SYG IV PRN (18:30)
[2017-05-23] MEDS ORDERED: NA PHOSPHATE/BIPHOS 133 ML ENEMA PR PRN (18:30)
[2017-05-23] MEDS ORDERED: BISACODYL 10 MG SUPP PR PRN (18:30)
--- NOTE | 2017-05-23 18:54 | OPR ---
Date/Time of Note Date/Time of Note DATE: 05/23/17 TIME: 18:54 Operative Report Free Text/Dictation [facility] INPATIENT OPERATIVE NOTE PLACE OF SERVICE: [facility] DATE OF SURGERY: 05/23/2017 PREOPERATIVE DIAGNOSIS: 1. Small bowel obstruction 2. BMI 28.4 3. Hypertension 4. Diverticulosis 5. Surgery for endometriosis 6. RAVEN/BSO 7. Appendectomy (patient mentioned malignancy in the 1970s, but did not have any further details; no recent issues with malignancy, weight loss or other major concerns) 8. Cholelithiasis 9. Albumin 2.7 after resuscitation POSTOPERATIVE DIAGNOSIS: 1. Small bowel obstruction with bowel strangulation within pelvis internal hernia, bowel gangrene with perforation (localized) 2. BMI 28.4 3. Hypertension 4. Diverticulosis 5. Surgery for endometriosis 6. RAVEN/BSO 7. Appendectomy (patient mentioned malignancy in the 1970s, but did not have any further details; no recent issues with malignancy, weight loss or other major concerns) 8. Cholelithiasis 9. Albumin 2.7 after resuscitation OPERATION: 1. Laparoscopic, hand-assisted reduction of internal hernia with partial enterectomy (terminal ileum, 10 cm) with primary anastomosis 2. Repair of several serosal tears (all outer serosa and no full-thickness enterotomies; approximately 6 proximal to the area of anastomosis) 3. Abdominal lavage SURGEON: Jose Enrique Gomez M.D. COAL GRADER: Bertha ANESTHESIA: General endotracheal tube anesthesia ANESTHESIOLOGIST: Arthur Pimentel M.D. BRIEF SUMMARY: An otherwise uncomplicated laparoscopic, hand-assisted reduction of internal hernia with partial enterectomy (terminal ileum, 10 cm) with primary anastomosis, repair of several serosal tears (all outer serosa and no full-thickness enterotomies; approximately 6 proximal to the area of anastomosis ) and abdominal lavage was performed with findings that were consistent with herniation of loop of terminal ileum into prior RAVEN/BSO cavity that had formed remnants of an internal ring and cause bowel strangulation, necrosis and localized perforation. Updated clinical summary: A very-pleasant 72-year-old lady with a few comorbidities including multiple operations in the past, presenting with a picture consistent with high-grade small bowel obstruction. Comorbidities: 1. BMI 28.4 2. Hypertension 3. Diverticulosis 4. Surgery for endometriosis 5. RAVEN/BSO 6. Appendectomy (patient mentioned malignancy in the 1970s, but did not have any further details; no recent issues with malignancy, weight loss or other major concerns) 7. Cholelithiasis 8. Albumin 2.7 after resuscitation BRIEF HISTORY: The patient is a very pleasant 72-year-old lady with a few comorbidities including multiple operations in the past, presenting with a picture consistent with high-grade small bowel obstruction. We spent the first 48 hours resuscitating the patient and keeping her with NG decompression. Patient did improve from a pain standpoint and remained clinically stable with normalized lactic acid levels. However she failed the Gastrografin small bowel follow-through that did not show passage of contrast even through the proximal portion of the small intestine within the first hour. For this reason, I met with the patient and family and counseled them regarding the possible options of treatment, and I strongly suggested a laparoscopic, possible open exploration with possible need for partial enterectomy and possible ostomy placement. We reviewed the operation in detail as well as the risks, benefits, alternatives, and expected outcomes of this operation. After careful consideration of all the risks, benefits, and alternatives, the patient and family appeared to understand those risks and wished to proceed with surgery. For a detailed report of my consultation with patient and family, please refer to my separate consultation note. STATEMENT OF THE INFORMED CONSENT: The patient and family appeared to understand the risks of the operation to include, but not be limited to risk of postoperative pain and scar tissue, possible infection or bleeding requiring other interventions such as opening the wound, placement of drainage catheters, or other operative interventions; possible injury to surrounding to structures including bowel, bladder, bile duct, or blood vessels, or solid organs such as liver, kidney, or pancreas requiring other interventions or procedures; possible leakage of bowel from anastomotic sites or suture lines causing significant increase in morbidity and mortality and requiring multiple interventions including but not limited to, placement of drainage catheters, imaging studies, as well as operative interventions; possible other source of sepsis such as urinary tract infections or pneumonias, or other sources of potentially life threatening problems such as deep venous thrombus formation causing pulmonary embolism, myocardial arrhythmias and infarctions, and even . After careful consideration of all their options, the patient and family appeared to understand and wished to proceed with surgery. DESCRIPTION OF PROCEDURE: After obtaining informed consent, the patient was brought into the operating room and was placed in a normal supine position, where successful general endotracheal tube anesthesia was performed. Intravenous access was already in place and intravenous antimicrobials had been appropriately chosen and dosed prior to the operation. The patient's abdominal skin was prepped and draped from the nipple line down to the level of the upper thighs in the usual sterile fashion. We then called a surgical time-out where the patient's identification, date of , nature of the operation, allergies , presence of intravenous antimicrobials, presence of needed equipment, and any other concerns were reviewed and agreed upon by all members of the operating room team. We then started the operation by placing a 5 mm skin incision in the left upper quadrant midclavicular subcostal area and introduced a 5 mm [employer] trocar into the peritoneal space using direct entry technique visualizing all the layers of the abdominal wall as we entered. Once we entered the peritoneal space, there was slight amount of clear/serous sanguinous fluid at the tip. No evidence of pus or enteric contents. We insufflated the abdominal cavity to a maximum pressure of 15 mmHg and inspected the underlying structures. Distended loops of bowel were visible. No injury to underlying structures could be seen. We then placed 2 other 5 mm trochars under direct visualization with injection of the sites with quarter percent Marcaine, 1 in the left lower quadrant and one along the previous midline scar l below the umbilicus. We then performed a limited exploration of the abdominal cavity using laparoscopy alone. I could sense that the bowel was immobile into the pelvis but I could not mobilize the bowel adequately with laparoscopic technique alone. Note that the anatomy was also consistent with the preoperative axial images a suggested strangulation of bowel within the pelvis. For this reason, I placed a 9 cm skin incision in the infraumbilical midline region using the previous incision that the patient had going through skin with a scalpel and then using cautery to go through the subcutaneous fat and the midline fascia. We took care not to injure any of the underlying distended small intestine. I then placed the GelPort device and used this to go through the rest of the operation in a laparoscopic, hand-assisted (hybrid) approach. With my hand inside, I could sense that there was a loop of small intestine that was stuck into the pelvis. I could easily get my fingers around this region in a circumferential fashion. I then used very careful digital blunt dissection to enter into the area of the pelvis. Immediately, there was presence of darker serous sanguinous fluid reminiscent of ischemic bowel that was in the pelvis area. We suctioned off this fluid immediately and did not allow it to spread into the rest of the abdominal cavity. I was then able to move my fingers around and perform further blunt dissection and eventually was able to reduce the loop of bowel that was in the hernia sac. I kept digital pressure circumferentially around the neck of the loop of bowel and used the suction device to suction of any excess fluid that was in the pelvis prior to taking the GelPort cap off and delivering the loop of bowel out into the open. We placed several towels around the's loop of bowel and isolated the loop from the rest of the surgical field. This loop of bowel appeared to be ischemic and there were 2 or 3 small showerhead type holes in the middle of it that were expressing enteric contents. We controlled this area using suction. We did send a sample of the pelvic fluid for aerobic, anaerobic, and fungal cultures. I then placed a pursestring suture using 2-0 Prolene suture around the area of the showerhead perforation and created an enterotomy and placed a 24 Nigerian chest tube catheter into this region with the point pointing proximally and secured the bowel around the chest tube using another 2-0 Prolene suture. We connected the chest tube to suction catheter but kept a clamp on the chest tube while we got ready for decompressing the proximal small intestine. With very careful coordination, I gently milked the proximal bowel into the area where the tip of the chest tube was present and we gently the goal of the suction clamp intermittently in order to remove the enteric contents as they were being milked towards the chest tube. This worked well. However, the wall of the small intestine appeared to be friable and even though I did my best to do this as gently as possible, there were several areas of slight superficial serosal tears were noted. None of these were full-thickness. Once we have finished the decompression of the small intestine, I went ahead and used 3-0 silk sutures on SH needle using Lembert technique and reinforced the 6 or 7 superficial serosal tears that were visible on the surface of bowel. This came together very nicely and there was no other further concern about the wall of the small intestine. We then removed the chest tube and closed the enterotomy site and then went ahead and resected approximately 10 cm of the terminal ileum (I ran the bowel distally and could see that it was going into the ileocecal valve with the loop located approximately 40-50 cm away from this region) using standard technique. In brief, circumferential control over proximal healthy small intestine was obtained using combination of cautery and blunt dissection using a Catrachita clamp under the bowel wall and then transection of the bowel using one firing of the bowel (blue) load of the hand-held 75 mm KAMARI stapler. Stapler fired well and there was no technical difficulties with the stapler. Staple rows appear to be nice and ship mate. We repeated this process distally again on an area of small intestine that appeared to be healthy using another firing of the same type of stapler load. We then used a LigaSure device to resect the specimen with a V shaped defect created into the mesentery. Distal portion of the bowel was marked using a silk suture and the specimen was sent to pathology for permanent sections and was termed partial enterectomy, terminal ileum. I then reconnected the small intestine use and [id number], functional end-to- end stapled anastomosis that we created in the standard fashion. In brief, we created 2 enterotomies using cautery on the antimesenteric portion of the bowel and then fired a stapler on the antimesenteric sides using a another load of the 75 mm KAMARI stapler with bowel (blue) load. Again the stapler fired well without any technical difficulties and the staple rows appear to be nice and ship mate. I then closed the enterotomy size using running 4-0 PDS suture reinforced with interrupted 3-0 silk sutures in a Lembert style. We also placed a 3-0 silk suture on the angle of sorrow. The anastomosis them together very nicely and it was widely patent. We closed the mesenteric defect using running 3-0 Vicryl suture. I then placed the small intestines back into the abdominal cavity and converted the operation again to laparoscopic hand- assisted fashion and found the ligament of Treitz region and ran the bowel away down to the ileocecal valve. The rest of the intestine appeared to be viable and there was no other issues with adhesions, compromised bowel, or other concerns. We then worked again through the hand port site in an open fashion to close the internal hernia ring using running 3-0 Vicryl suture. Converting back to laparoscopic mode, I used approximately 2-1/2 L of normal saline to irrigate all quadrants of the abdominal cavity to clear drainage. Once we were satisfied that there were no other issues, we made sure that we removed all her equipment from the abdominal cavity including the pneumoperitoneum, reapproximated the hand port fascial defect using running #1 PDS suture, washed the wounds with copious amounts of normal saline and then reapproximated the skin using interrupted skin [place]. Light dressing was then applied. At the end of the operation, both the sponge count and needle count were reportedly correct x2. The patient tolerated the procedure without any reported complications. ESTIMATED BLOOD LOSS: Less than 10 mL. BLOOD OR BLOOD PRODUCT TRANSFUSIONS: None to my knowledge. SPECIMENS: 1. 10 cm of terminal ileum partial enterectomy with suture marking the distal bowel 2. Culture from pelvic fluid for aerobic, anaerobic, and fungal analysis COMPLICATIONS: None. DISPOSITION: Recovery area. Disclaimers: 1. Inadvertent spelling and grammatical errors are likely due to electronic health record (EHR)/dictation software used and do not reflect on the quality of delivered patient care. 2. The electronic timestamp recorded on this note does not necessarily reflect the actual date and time of the visit or the service. 3. Portions of this note may have been created through electronic templates and computer algorithms that might bring in information either from the system or from other physicians and providers. Please note that such information may or may not contain errors, the occurrence of which are outside of my control. In general (but not always) this happens either in the beginning or at the end of the note. The portion of the note that I have created are generally done in 1 continuous block of text, flanked at the beginning and at the end by " ", and entered into one field in the EHR. 4. There may be other unanticipated errors in the note that are outside of my control. I can only attest to the portions of the note that I have created. JOSE ENRIQUE GOMEZ M.D. May 23, 2017 18:54
[2017-05-24] VITALS (45 sets, daily range): BP systolic 51–121; BP diastolic 14–96; PULSE 77–122; RESP 5–31
[2017-05-24] MEDS: HYDROmorphONE 0.5 MG/0.5 ML SYG IV PRN ×7 (00:49→22:22)
[2017-05-24 05:09] LABS: ABNORMAL IP MESSAGE 1; HEMATOCRIT 39.9 % (37.0-47.0); HEMOGLOBIN 13.4 g/dl (12.0-16.0); MEAN CORPUSCULAR HEMOGLOBIN 32.9 pg (29.0-33.0); MEAN CORPUSCULAR HGB CONC 33.6 g/dl (32.0-37.0); MEAN PLATELET VOLUME 11.4 fl (7.4-10.4); PLATELET COUNT 255 10^3/UL (140-415); RED BLOOD COUNT 4.07 10^6/ul (4.20-5.40); RED CELL DISTRIBUTION WIDTH 13.4 % (11.5-14.5); WHITE BLOOD COUNT 11.8 10^3/ul (4.8-10.8)
[2017-05-24 05:22] LABS: POSITIVE DIFF @See below
[2017-05-24] MEDS: D5W-0.45 NACL + KCL 20 MEQ 1,000 ML IV SCH ×2 (05:36→14:28)
[2017-05-24] MEDS: metroNIDAZOLE 500 MG/NS (PMX) 100 ML IVPB SCH ×3 (05:36→21:34)
[2017-05-24 05:47] LABS: ALBUMIN 1.9 g/dl (3.3-4.9); ALBUMIN/GLOBULIN RATIO 0.73; BILIRUBIN,INDIRECT 0.7 mg/dl (0-1.1); BILIRUBIN,TOTAL 0.7 mg/dl (0.2-1.3); CALCIUM 7.2 mg/dl (8.4-10.2); CREATININE 0.69 mg/dl (0.44-1.00); PHOSPHORUS 4.5 mg/dl (2.5-4.9); POTASSIUM 4.1 mmol/L (3.5-5.1); TOTAL PROTEIN 4.5 g/dl (6.1-8.1)
[2017-05-24 05:49] LABS: INR 1.21; PROTIME 15.4 Sec (12.2-14.2); PT RATIO 1.2
[2017-05-24 05:50] LABS: PARTIAL THROMBOPLASTIN TIME 26.7 Sec (25.0-35.0)
[2017-05-24] MEDS ORDERED: MAGNESIUM SULFATE 1 GM/D5W 100 ML IVPB ONE (09:00)
[2017-05-24] MEDS ORDERED: SOD CHLORIDE 0.9% 1,000 ML IV ONE ×3 (09:00→15:30)
[2017-05-24] MEDS ORDERED: FAMOTIDINE 20 MG INJ IV SCH (09:00)
[2017-05-24] MEDS: CIPROFLOXACIN 400MG/D5W 200 ML IVPB SCH ×2 (09:03→20:17)
[2017-05-24] MEDS: ENOXAPARIN 40 MG/0.4 ML SYG SC SCH (09:06)
[2017-05-24 09:38] LABS: LYMPHOCYTES # 0.8 10^3/ul (0.8-2.9); MONOCYTE # 0.2 10^3/ul (0.3-0.9); MONOCYTES % (M) 2 % (0-11)
--- NOTE | 2017-05-24 13:28 | PN ---
Date/Time of Note Date/Time of Note DATE: 05/24/17 TIME: 13:27 Assessment/Plan VTE Prophylaxis VTE Prophylaxis Intervention: SCD's Lines/Catheters IV Catheter Type (from Nrsg): Peripheral IV Urinary Cath still in place: Yes Reason Cath still needed: other (indicate) (critically ill?) Assessment/Plan Assessment/Plan 72-year-old female with a history of diverticulosis, multiple abd surgeries admitted for high-grade SBO with possible strangulation. sp partial enterectomy with primary anastomosis with internal hernia reduction, and repair of serosal tears 11.14 #SBO with strangulation; sp surgical intervention -general surgery on consult -PO status as per gen surg -anticipate 10 days abx. likely convert to PO tomorrow if pt continues to tolerate PO -replete lytes PRN #transaminitis: improving rationale for price unclear, ?AUR? PT/OT and transfer out of ICU when ok'd by gen surg critical care time: 30 minutes Subjective 24 Hr Interval Summary Free Text/Dictation pt very tired Exam/Review of Systems Vital Signs Vitals Vital Signs Date Time Temp Pulse Resp B/P Pulse Ox O2 Delivery O2 Flow Rate FiO2 05/24/17 12:00 98.4 05/24/17 11:30 116 12 106/64 97 Nasal Cannula 2.0 Intake and Output 05/23/17 05/23/17 05/24/17 15:00 23:00 07:00 Intake Total 1040.0 ml 5800 ml 1700 ml Output Total 330 ml 200 ml 155 ml Balance 710.0 ml 5600 ml 1545 ml Exam fatigued Results Result Diagram: 05/24/17 0400 05/24/17 0400 Results 24 hrs Laboratory Tests Test 05/24/17 04:00 05/24/17 04:32 White Blood Count 11.8 #H Red Blood Count 4.07 L Hemoglobin 13.4 Hematocrit 39.9 Mean Corpuscular Volume 98.0 Mean Corpuscular Hemoglobin 32.9 Mean Corpuscular Hemoglobin Concent 33.6 Red Cell Distribution Width 13.4 Platelet Count 255 Mean Platelet Volume 11.4 H Neutrophils % Segmented Neutrophils % (Manual) 74 Band Neutrophils % (Manual) 17 H Lymphocytes % Lymphocytes % (Manual) 7 L Monocytes % Monocytes % (Manual) 2 Eosinophils % Basophils % Nucleated Red Blood Cells % 0.0 Neutrophils # Neutrophils # (Manual) 9.0 H Band Neutrophils # 2.0 H Absolute Lymphocytes (Manual) 0.8 Lymphocytes # 0.8 Monocytes # 0.2 L Absolute Monocytes (Manual) 0.2 L Eosinophils # Basophils # Nucleated Red Blood Cells # Sodium Level 136 Potassium Level 4.1 Chloride Level 110 Carbon Dioxide Level 20 L Anion Gap 10 Blood Urea Nitrogen 13 Creatinine 0.69 Glucose Level 175 Lactic Acid Level 1.8 Calcium Level 7.2 L Phosphorus Level 4.5 Magnesium Level 1.3 L Total Bilirubin 0.7 Direct Bilirubin 0.00 Indirect Bilirubin 0.7 Aspartate Amino Transf (AST/SGOT) 21 Alanine Aminotransferase (ALT/SGPT) 52 Alkaline Phosphatase 39 L B-Type Natriuretic Peptide 1110 H Total Protein 4.5 #L Albumin 1.9 L Globulin 2.60 Albumin/Globulin Ratio 0.73 Prothrombin Time 15.4 H Prothrombin Time Ratio 1.2 INR International Normalized Ratio 1.21 Activated Partial Thromboplast Time 26.7 Medications Medications Current Medications Ondansetron HCl 4 mg 4 mg Q6H PRN IV NAUSEA AND/OR VOMITING; Start 05/21/17 at 21:00 Ciprofloxacin/ Dextrose 200 ml @ 200 mls/hr Q12 IVPB Last administered on 09:03; Admin Dose 200 MLS/HR; Start 05/22/17 at 09:00 Metronidazole 100 ml @ 100 mls/hr Q8 IVPB Last administered on 05/24/17 05: 36; Admin Dose 100 MLS/HR; Start 05/22/17 at 03:00 Potassium Chloride/Dextrose/ Sod Cl (D5-1/2ns + KCl 20 Meq) 1,000 ml @ 100 mls/ hr Q10H IV Last administered on 05/24/17 05:36; Admin Dose 100 MLS/HR; Start 05/23/17 at 18:28 Hydromorphone HCl (Dilaudid) 0.5 mg Q2 PRN IV PAIN Last administered on 08:58; Admin Dose 0.5 MG; Start 05/23/17 at 18:30 Hydromorphone HCl (Dilaudid) 1 mg Q2 PRN IV PAIN Last administered on 11:27; Admin Dose 1 MG; Start 05/23/17 at 18:30 Docusate Sodium (Colace) 100 mg BID PRN PO CONSTIPATION; Start 05/23/17 at 18: 30 Bisacodyl (Dulcolax Supp) 10 mg BID PRN CO CONSTIPATION; Start 05/23/17 at 18: 30 Sodium Biphosphate/ Sodium Phosphate (Fleet Enema) 133 ml BID PRN CO CONSTIPATION; Start 05/23/17 at 18:30 Famotidine (Pepcid Iv) 20 mg DAILY IV Last administered on 05/24/17 09:03; Admin Dose 20 MG; Start 05/24/17 at 09:00 Enoxaparin Sodium (Lovenox) 40 mg DAILY SC Last administered on 05/24/17 09: 06; Admin Dose 40 MG; Start 05/24/17 at 09:00 WARREN RICHARDS MD May 24, 2017 13:28
--- NOTE | 2017-05-24 18:22 | PN ---
Date/Time of Note Date/Time of Note DATE: 05/24/17 TIME: 09:57 Assessment/Plan Lines/Catheters IV Catheter Type (from [facility]): A Line Orta in Place (from [facility]): Yes Assessment/Plan Assessment/Plan [facility] Progress Note Date of Service: Location of Service: [facility] ICU Today's Assessment & Plan: Overall stable and doing relatively well.. Abdomen remains benign. No indications of major postoperative complications or wound problems. No indication for acute surgical intervention. Awaiting further return of bowel function. With above assessment, I've recommended the following for today: 1. Continue current cares 2. Advance diet as tolerated (I expect postoperative paralytic ileus to continue for a few days; do not advance if nausea) 3. Careful monitoring of vital signs 4. Strict I's and O's 5. Labs in a.m. 6. Increase activity 7. Incentive spirometry 8. 1 L of normal saline bolus 1 9. Continue broad-spectrum antimicrobials 10. Okay from my standpoint to transfer out of ICU Thank you again for your great care of this very pleasant patient and wonderful family. If there are any questions, please feel free to call me at [phone]. Nature of presenting problem: High severity Please note that, given the multiple number of diagnoses or management options, moderate amount and/or complexity of data needed to be reviewed, and high risk of complications and/or morbidity or mortality, this qualifies as moderate complexity type of decision-making. Disclaimers: 1. Inadvertent spelling and grammatical errors are likely due to electronic health record (EHR)/dictation software used and do not reflect on the quality of delivered patient care. 2. The electronic timestamp recorded on this note does not necessarily reflect the actual date and time of the visit or the service. 3. Portions of this note may have been created through electronic templates and computer algorithms that might bring in information either from the system or from other physicians and providers. Please note that such information may or may not contain errors, the occurrence of which are outside of my control. In general (but not always) this happens either in the beginning or at the end of the note. The portion of the note that I have created are generally done in 1 continuous block of text, flanked at the beginning and at the end by " ", and entered into one field in the EHR. 4. There may be other unanticipated errors in the note that are outside of my control. I can only attest to the portions of the note that I have created. Updated Clinical Summary: A very-pleasant 72-year-old lady with a few comorbidities including multiple operations in the past, presenting with a picture consistent with high-grade small bowel obstruction. Comorbidities: 1. Small bowel obstruction with bowel strangulation within pelvis internal hernia, bowel gangrene with perforation (localized). S/p an otherwise uncomplicated laparoscopic, hand-assisted reduction of internal hernia with partial enterectomy (terminal ileum, 10 cm) with primary anastomosis, repair of several serosal tears (all outer serosa and no full-thickness enterotomies; approximately 6 proximal to the area of anastomosis) and abdominal lavage at [facility] 05/23/17 with findings that were consistent with herniation of loop of terminal ileum into prior RAVEN/BSO cavity that had formed remnants of an internal ring and cause bowel strangulation, necrosis and localized perforation. 2. BMI 28.4 3. Hypertension 4. Diverticulosis 5. Surgery for endometriosis 6. RAVEN/BSO 7. Appendectomy (patient mentioned malignancy in the 1970s, but did not have any further details; no recent issues with malignancy, weight loss or other major concerns) 8. Cholelithiasis 9. Albumin 2.7 after resuscitation Subjective: No major events or complaints; no abd pain and under control with medications; no n/v/d; no sob or cp; bowel activity; - activity Objective: Vitals: See below Exam: GENERAL: On exam, the patient was laying in bed and appeared to be comfortable and in no acute distress. ABDOMEN: Soft, nontender and nondistended. Incision dressings are clean, dry and intact without any evidence of obvious underlying erythema, edema, discharge , or hernia. There are no peritoneal signs or guarding. SKIN: Skin appears to be pink and feels warm to touch. NEUROLOGIC: Patient is awake, alert, and follows commands appropriately. Exam/Review of Systems Vital Signs Vitals Vital Signs Date Time Temp Pulse Resp B/P Pulse Ox O2 Delivery O2 Flow Rate FiO2 05/24/17 17:55 99 3.0 05/24/17 16:00 98.7 14 120/82 Nasal Cannula 05/24/17 16:00 119 Intake and Output 05/23/17 05/23/17 05/24/17 14:59 22:59 06:59 Intake Total 1070.0 ml 5750 ml 1800 ml Output Total 330 ml 185 ml 155 ml Balance 740.0 ml 5565 ml 1645 ml Results Result Diagram: 05/24/170 05/24/170 JOSE ENRIQUE GOMEZ M.D. May 24, 2017 18:22
[2017-05-25] VITALS (18 sets, daily range): BP systolic 90–138; BP diastolic 55–81; PULSE 110–126; RESP 11–32
[2017-05-25] MEDS: D5W-0.45 NACL + KCL 20 MEQ 1,000 ML IV SCH ×3 (00:28→19:58)
[2017-05-25] MEDS: HYDROmorphONE 0.5 MG/0.5 ML SYG IV PRN ×4 (04:01→13:40)
[2017-05-25 05:20] LABS: ABNORMAL IP MESSAGE 1; HEMATOCRIT 32.5 % (37.0-47.0); HEMOGLOBIN 10.8 g/dl (12.0-16.0); MEAN CORPUSCULAR HEMOGLOBIN 32.8 pg (29.0-33.0); MEAN CORPUSCULAR HGB CONC 33.2 g/dl (32.0-37.0); MEAN CORPUSCULAR VOLUME 98.8 fl (82.0-101.0); MEAN PLATELET VOLUME 10.8 fl (7.4-10.4); PLATELET COUNT 237 10^3/UL (140-415); RED BLOOD COUNT 3.29 10^6/ul (4.20-5.40); RED CELL DISTRIBUTION WIDTH 13.5 % (11.5-14.5)
[2017-05-25 05:25] LABS: POSITIVE DIFF @See below
[2017-05-25] MEDS: metroNIDAZOLE 500 MG/NS (PMX) 100 ML IVPB SCH ×2 (05:37→13:41)
[2017-05-25 05:38] LABS: INR 1.09; PROTIME 14.1 Sec (12.2-14.2); PT RATIO 1.1
[2017-05-25 05:39] LABS: PARTIAL THROMBOPLASTIN TIME 29.1 Sec (25.0-35.0)
[2017-05-25 05:49] LABS: ALBUMIN 2.2 g/dl (3.3-4.9); ALBUMIN/GLOBULIN RATIO 0.78; BILIRUBIN,INDIRECT 0.4 mg/dl (0-1.1); BILIRUBIN,TOTAL 0.4 mg/dl (0.2-1.3); CALCIUM 7.9 mg/dl (8.4-10.2); MAGNESIUM 1.7 mg/dl (1.7-2.5); PHOSPHORUS 2.4 mg/dl (2.5-4.9); POTASSIUM 4.1 mmol/L (3.5-5.1)
[2017-05-25] MEDS: CIPROFLOXACIN 400MG/D5W 200 ML IVPB SCH ×2 (07:47→19:58)
[2017-05-25] MEDS: ENOXAPARIN 40 MG/0.4 ML SYG SC SCH (07:54)
[2017-05-25 08:13] LABS: BURR CELLS 1+ (0-0); EOSINOPHILS % (M) 1 % (0-7); METAMYELOCYTES %M 1 % (0-0); MONOCYTES % (M) 7 % (0-11); PLATELET ESTIMATE NORMAL; POIKILOCYTOSIS 3+ (0-0); POLYCHROMASIA 1+ (0-0); SPHEROCYTES 1+ (0-0)
[2017-05-25] MEDS ORDERED: VANCOMYCIN IV PER PHARMACY XX SCH (15:00)
--- NOTE | 2017-05-25 15:05 | PN ---
Date/Time of Note Date/Time of Note DATE: 05/25/17 TIME: 14:47 Assessment/Plan VTE Prophylaxis VTE Prophylaxis Intervention: SCD's Lines/Catheters IV Catheter Type (from Nrsg): Saline Lock Urinary Cath still in place: Yes Reason Cath still needed: other (indicate) (will dc) Assessment/Plan Assessment/Plan 72-year-old female with a history of diverticulosis, multiple abd surgeries admitted for high-grade SBO with possible strangulation. sp partial enterectomy with primary anastomosis with internal hernia reduction, and repair of serosal tears 11.14 #SBO with strangulation; sp surgical intervention -general surgery on consult -PO status as per gen surg -culture result viewed. While antibiotic of choice for enterococcus would be ampicillin, pt with allergy (hives). Will thus treat with vancomycin at this time cont cipro/flagyll -replete lytes PRN #transaminitis: RESOLVED rationale for price unclear, ?AUR? will dc PT/OT and discharge planning Subjective 24 Hr Interval Summary Free Text/Dictation Pt fatigued. Hasn't had a BM. No flatus, +belching Exam/Review of Systems Vital Signs Vitals Vital Signs Date Time Temp Pulse Resp B/P Pulse Ox O2 Delivery O2 Flow Rate FiO2 05/25/17 12:14 110 05/25/17 10:00 32 90/55 93 Room Air 05/25/17 08:00 98.5 05/24/17 20:00 2.0 Intake and Output 05/24/17 05/24/17 05/25/17 14:59 22:59 06:59 Intake Total 2600 ml 2615 ml 1240 ml Output Total 130 ml 125 ml 375 ml Balance 2470 ml 2490 ml 865 ml Exam nad no mrg lungs clear abd soft no rashes no edema culture with enterococcus Results Result Diagram: 05/25/17 0440 05/25/17 0440 Results 24 hrs Laboratory Tests Test 05/25/17 04:40 White Blood Count 15.0 #H Red Blood Count 3.29 L Hemoglobin 10.8 L Hematocrit 32.5 L Mean Corpuscular Volume 98.8 Mean Corpuscular Hemoglobin 32.8 Mean Corpuscular Hemoglobin Concent 33.2 Red Cell Distribution Width 13.5 Platelet Count 237 Mean Platelet Volume 10.8 H Neutrophils % Segmented Neutrophils % (Manual) 61 Band Neutrophils % (Manual) 19 H Lymphocytes % (Manual) 11 L Monocytes % (Manual) 7 Eosinophils % Eosinophils % (Manual) 1 Metamyelocytes % (manual) 1 H Nucleated Red Blood Cells % 0.0 Neutrophils # Neutrophils # (Manual) 9.6 H Band Neutrophils # 2.8 H Absolute Lymphocytes (Manual) 1.6 Absolute Monocytes (Manual) 1.0 H Eosinophils # Metamyelocytes # 0.1 H Platelet Estimate NORMAL Polychromasia 1+ Poikilocytosis 3+ Spherocytes 1+ Prothrombin Time 14.1 Prothrombin Time Ratio 1.1 INR International Normalized Ratio 1.09 Activated Partial Thromboplast Time 29.1 Sodium Level 132 L Potassium Level 4.1 Chloride Level 106 Carbon Dioxide Level 20 L Anion Gap 10 Blood Urea Nitrogen 15 Creatinine 1.00 Glucose Level 117 # Lactic Acid Level 1.3 Calcium Level 7.9 L Phosphorus Level 2.4 #L Magnesium Level 1.7 Total Bilirubin 0.4 Direct Bilirubin 0.00 Indirect Bilirubin 0.4 Aspartate Amino Transf (AST/SGOT) 19 Alanine Aminotransferase (ALT/SGPT) 51 Alkaline Phosphatase 58 B-Type Natriuretic Peptide 938 H Total Protein 5.0 L Albumin 2.2 L Globulin 2.80 Albumin/Globulin Ratio 0.78 Medications Medications Current Medications Ondansetron HCl 4 mg 4 mg Q6H PRN IV NAUSEA AND/OR VOMITING; Start 05/21/17 at 21:00 Ciprofloxacin/ Dextrose 200 ml @ 200 mls/hr Q12 IVPB Last administered on 07:47; Admin Dose 200 MLS/HR; Start 05/22/17 at 09:00 Metronidazole 100 ml @ 100 mls/hr Q8 IVPB Last administered on 05/25/17 13: 41; Admin Dose 100 MLS/HR; Start 05/22/17 at 03:00 Potassium Chloride/Dextrose/ Sod Cl (D5-1/2ns + KCl 20 Meq) 1,000 ml @ 100 mls/ hr Q10H IV Last administered on 05/25/17 07:47; Admin Dose 100 MLS/HR; Start 05/23/17 at 18:28 Hydromorphone HCl (Dilaudid) 0.5 mg Q2 PRN IV PAIN Last administered on 13:40; Admin Dose 0.5 MG; Start 05/23/17 at 18:30 Hydromorphone HCl (Dilaudid) 1 mg Q2 PRN IV PAIN Last administered on 11:27; Admin Dose 1 MG; Start 05/23/17 at 18:30 Docusate Sodium (Colace) 100 mg BID PRN PO CONSTIPATION; Start 05/23/17 at 18: 30 Bisacodyl (Dulcolax Supp) 10 mg BID PRN CA CONSTIPATION; Start 05/23/17 at 18: 30 Sodium Biphosphate/ Sodium Phosphate (Fleet Enema) 133 ml BID PRN CA CONSTIPATION; Start 05/23/17 at 18:30 Enoxaparin Sodium (Lovenox) 40 mg DAILY SC Last administered on 05/25/17 07: 54; Admin Dose 40 MG; Start 05/24/17 at 09:00 WARREN RICHARDS MD May 25, 2017 14:57
[2017-05-25] MEDS ORDERED: VANCOMYCIN 1.25 GM in SOD CHLORIDE 0.9% 250 ML IVPB ONE (16:00)
--- NOTE | 2017-05-25 17:37 | PN ---
Date/Time of Note Date/Time of Note DATE: 05/25/17 TIME: 17:33 Assessment/Plan Lines/Catheters IV Catheter Type (from Nrsg): Saline Lock Orta in Place (from Nrsg): Yes Assessment/Plan Assessment/Plan [facility] Progress Note Date of Service: Location of Service: [facility] tele [place] Today's Assessment & Plan: Overall stable with some issues with ongoing tachycardia and difficulty with finishing her sentences that appears to be due to shortness of breath. Probability of cardiopulmonary event is low, but need to investigate. Abdomen remains benign, although showing signs of post operative paralytic ileus. No indications of major postoperative complications or wound problems. No indication for acute surgical intervention. Awaiting further return of bowel function. With above assessment, I've recommended the following for today: 1. Continue current cares 2. Cont clear liquids and do not advance (I expect postoperative paralytic ileus to continue for a few days; do not advance if nausea) 3. Careful monitoring of vital signs 4. Strict I's and O's 5. Labs in a.m. 6. Increase activity 7. Incentive spirometry 8. Continue broad-spectrum antimicrobials 9. CXR, KUB, ABG, Troponins now; possible need for PE w/u if indicated by above 10. Keep in tele with low threshold to transfer back to ICU Thank you again for your great care of this very pleasant patient and wonderful family. If there are any questions, please feel free to call me at [phone]. Nature of presenting problem: High severity Please note that, given the multiple number of diagnoses or management options, moderate amount and/or complexity of data needed to be reviewed, and high risk of complications and/or morbidity or mortality, this qualifies as moderate complexity type of decision-making. Disclaimers: 1. Inadvertent spelling and grammatical errors are likely due to electronic health record (EHR)/dictation software used and do not reflect on the quality of delivered patient care. 2. The electronic timestamp recorded on this note does not necessarily reflect the actual date and time of the visit or the service. 3. Portions of this note may have been created through electronic templates and computer algorithms that might bring in information either from the system or from other physicians and providers. Please note that such information may or may not contain errors, the occurrence of which are outside of my control. In general (but not always) this happens either in the beginning or at the end of the note. The portion of the note that I have created are generally done in 1 continuous block of text, flanked at the beginning and at the end by " ", and entered into one field in the EHR. 4. There may be other unanticipated errors in the note that are outside of my control. I can only attest to the portions of the note that I have created. Updated Clinical Summary: A very-pleasant 72-year-old lady with a few comorbidities including multiple operations in the past, presenting with a picture consistent with high-grade small bowel obstruction. Comorbidities: 1. Small bowel obstruction with bowel strangulation within pelvis internal hernia, bowel gangrene with perforation (localized). S/p an otherwise uncomplicated laparoscopic, hand-assisted reduction of internal hernia with partial enterectomy (terminal ileum, 10 cm) with primary anastomosis, repair of several serosal tears (all outer serosa and no full-thickness enterotomies; approximately 6 proximal to the area of anastomosis) and abdominal lavage at [facility] 05/23/17 with findings that were consistent with herniation of loop of terminal ileum into prior RAVEN/BSO cavity that had formed remnants of an internal ring and cause bowel strangulation, necrosis and localized perforation. 2. BMI 28.4 3. Hypertension 4. Diverticulosis 5. Surgery for endometriosis 6. RAVEN/BSO 7. Appendectomy (patient mentioned malignancy in the 1970s, but did not have any further details; no recent issues with malignancy, weight loss or other major concerns) 8. Cholelithiasis 9. Albumin 2.7 after resuscitation Subjective: No major events or complaints; no major abd pain and under control with medications; no n/v/d; no reported sob or cp; - bowel activity; - activity Objective: Vitals: See below Exam: GENERAL: On exam, the patient was laying in bed and appeared to be comfortable and in no acute distress. Some difficulty with finishing sentences that appears to be from shortness of breath. Also remains tachycardic. ABDOMEN: Soft, nontender and nondistended. Incision dressings removed and incisions are clean, dry and intact without any evidence of obvious erythema, edema, discharge, or hernia. There are no peritoneal signs or guarding. SKIN: Skin appears to be pink and feels warm to touch. NEUROLOGIC: Patient is awake, alert, and follows commands appropriately. Exam/Review of Systems Vital Signs Vitals Vital Signs Date Time Temp Pulse Resp B/P Pulse Ox O2 Delivery O2 Flow Rate FiO2 05/25/17 16:06 126 05/25/17 16:03 98.3 19 124/71 93 05/25/17 10:00 Room Air 05/24/17 20:00 2.0 Intake and Output 05/24/17 05/24/17 05/25/17 15:00 23:00 07:00 Intake Total 2600 ml 2715 ml 1040 ml Output Total 130 ml 125 ml 460 ml Balance 2470 ml 2590 ml 580 ml Results Result Diagram: 05/25/17 0440 05/25/17 0440 JOSE ENRIQUE GOMEZ M.D. May 25, 2017 17:37
[2017-05-25 18:37] LABS: AADO2 Arterial 91.7 mmHg (7.0-24.0); Arterial COHb 0.3 % (0.0-3.0); Arterial Fraction of Oxyhgb 93.9 % (93.0-99.0); Arterial MetHb 0.3 % (0.0-1.5); Arterial Total Hemglobin 11.8 g/dl (12.0-18.0); MODE NASAL CANNULA
--- NOTE | 2017-05-25 18:50 | RADRPT ---
PROCEDURE: Chest x-ray CLINICAL INDICATION: Shortness of breath TECHNIQUE: Chest single view COMPARISON: 05/21/2017 FINDINGS: There is stable mild cardiomegaly. There is little of mild interstitial vascular congestion. Lung vo lumes are low with left basilar atelectasis and volume loss. Question trace bilateral pleural effusi ons IMPRESSION: 1. Cardiomegaly with mild central venous congestion and trace bilateral pleural effusions. 2. Low lung volumes with basilar atelectasis RPTAT: HH .Poncho Solis MD, MD Date Time Electronically viewed and signed by .Poncho Solis MD, MD on 05/25/2017 18:50 .W/
--- NOTE | 2017-05-25 19:47 | RADRPT ---
PROCEDURE: XR Abdomen. CLINICAL INDICATION: 72 years of age, female. Tachycardia shortness of breath postop abdominal surg perfecto. TECHNIQUE: Supine AP view of the abdomen. COMPARISON: May 23, 2017 FINDINGS: There are midline skin [place] from recent surgery. There is orally administered contrast in small bowel in the right colon. Gas is present in prominent loops of bowel in the central abdomen likely due to a postoperative ileus. Bowel gas pattern is non obstructive. No extraluminal gas collections are identified. There are multiple calcifications in the right upper quadrant of the abdomen that likely represent c alcified gallstones. They are unchanged from prior exam. Bones are osteopenic. No acute bony abnormality. Additional comment: Left lower lobe lung opacity may represent atelectasis or aspiration. IMPRESSION: 1. Prominent loops of bowel in the central abdomen is likely due to a postoperative ileus. Bowel gas pattern is nonobstructive. 2. Cholelithiasis. 3. Left lower lobe lung consolidation may represent atelectasis or aspiration and is incompletely ev aluated. RPTAT: HCTS Physician Miryam Date Time Electronically viewed and signed by Physician Miryam on 05/25/2017 19:47 CS/
[2017-05-26] VITALS (11 sets, daily range): BP systolic 126–145; BP diastolic 61–79; PULSE 99–128; RESP 19–21
[2017-05-26] MEDS: metroNIDAZOLE 500 MG/NS (PMX) 100 ML IVPB SCH ×4 (02:06→23:15)
[2017-05-26] MEDS: D5W-0.45 NACL + KCL 20 MEQ 1,000 ML IV SCH (05:46)
[2017-05-26 07:23] LABS: ABNORMAL IP MESSAGE 1; BASOPHILS % 0.3 % (0.0-2.0); EOSINOPHILS # 0.2 10^3/ul (0.0-0.5); EOSINOPHILS % 1.6 % (0.0-7.0); HEMOGLOBIN 10.2 g/dl (12.0-16.0); LYMPHOCYTES # 0.6 10^3/ul (0.8-2.9); MEAN CORPUSCULAR HEMOGLOBIN 33.1 pg (29.0-33.0); MEAN CORPUSCULAR VOLUME 97.4 fl (82.0-101.0); MEAN PLATELET VOLUME 10.1 fl (7.4-10.4); MONOCYTE # 0.8 10^3/ul (0.3-0.9); MONOCYTES % 5.8 % (0.0-11.0); NEUTROPHIL # 10.6 10^3/ul (1.6-7.5); NEUTROPHILS % 81.7 % (39.0-77.0); PLATELET COUNT 201 10^3/UL (140-415); RED BLOOD COUNT 3.08 10^6/ul (4.20-5.40); RED CELL DISTRIBUTION WIDTH 13.7 % (11.5-14.5); WHITE BLOOD COUNT 12.9 10^3/ul (4.8-10.8)
[2017-05-26 07:26] LABS: POSITIVE DIFF @See below
[2017-05-26 07:45] LABS: ALBUMIN 2.2 g/dl (3.3-4.9); ALBUMIN/GLOBULIN RATIO 0.78; BILIRUBIN,INDIRECT 0.5 mg/dl (0-1.1); BILIRUBIN,TOTAL 0.5 mg/dl (0.2-1.3); PHOSPHORUS 2.6 mg/dl (2.5-4.9); POTASSIUM 3.8 mmol/L (3.5-5.1)
[2017-05-26 07:48] LABS: INR 1.11; PARTIAL THROMBOPLASTIN TIME 29.1 Sec (25.0-35.0); PROTIME 14.3 Sec (12.2-14.2); PT RATIO 1.1
[2017-05-26] MEDS: CIPROFLOXACIN 400MG/D5W 200 ML IVPB SCH ×2 (08:34→21:29)
[2017-05-26] MEDS: HYDROmorphONE 0.5 MG/0.5 ML SYG IV PRN (08:34)
[2017-05-26] MEDS: ENOXAPARIN 40 MG/0.4 ML SYG SC SCH (08:43)
[2017-05-26] MEDS ORDERED: FUROSEMIDE 20 MG INJ IV SCH (12:00)
--- NOTE | 2017-05-26 12:26 | CONS ---
Date/Time of Note Date/Time of Note DATE: 05/26/17 TIME: 12:19 Assessment/Plan Assessment/Plan Chief Complaint/Hosp Course Acute ?diastolic heart failure: Pt is net positive 17L since admission which is likely accurate as she had a price. Albumin also very low which is contributing. Needs diuresis. Sinus tachycardia: Compensatory due to above. Should improve with diuresis SBO/incarcerated hernia s/p surgical repair 05/23 Sepsis: on antibiotics -d/c fluids -lasix 40mg IV BID for now -check echo (low voltage EKG but doubt pericardial effusion) Problems: Consultation Date/Type/Reason Admit Date/Time May 21, 2017 at 20:05 Date of Consultation: May 26, 2017 Type of Consultation: Cardiology Reason for Consultation Dyspnea, tachycardia Referring Provider: WARREN RICHARDS MD Hx of Present Illness 72 yo F with no prior cardiac history who presented with abdominal pain and was found to have SBO with incarcerated hernia now s/p surgery 05/23. The pt has been having ongoing tachycardia and dyspnea for which cardiology is consulted. Pt notes that she has been having progressive SOB/orthopnea over the past several days and her at bedside notes that her legs have been swelling. No prior h/o CHF. No chest pain. Review of records shows that the pt is net positive 17 L since admission and has been on IVF throughout. Her albumin is also low. per hpi Past Medical History per HPI Social History Smoking Status: Never smoker Exam/Review of Systems Vital Signs Vitals Vital Signs Date Time Temp Pulse Resp B/P Pulse Ox O2 Delivery O2 Flow Rate FiO2 05/26/17 11:58 98.1 115 19 130/68 95 05/26/17 08:00 Nasal Cannula 2.0 Intake and Output 05/25/17 05/25/17 05/26/17 15:00 23:00 07:00 Intake Total 1000 ml 1900 ml Output Total 425 ml Balance 575 ml 1900 ml Exam Constitutional: alert, distress (mild respiratory ), oriented Psych: nl mood/affect, no complaints Head: atraumatic, normocephalic Eyes: nl conjunctiva Neck: jvd (10cm), supple Respiratory: crackles/rales, wheezing, No clear to auscultation (crackles/wheezing all lung flores ) Cardiovascular: edema (1+), No regular rate and rhythm (tachy, regular ), No systolic murmur Gastrointestinal: non-tender, soft, No distended Neurological: nl mental status, nl speech Skin: No rash or lesions Results sinus tachycardia, low voltage (new finding from admission EKG) Result Diagram: 05/26/17 0655 05/26/17 0655 Results 24 hrs Laboratory Tests Test 05/25/17 17:29 05/25/17 17:58 05/26/17 01:37 05/26/17 06:55 Blood Gas Specimen Source Blood arterial Arterial Blood Date Drawn 05/25/2017 6:30:07 PM Arterial Blood pH (Temp corrected) 7.449 Arterial Blood pCO2 (Temp correct) 29.5 L Arterial Blood pO2 (Temp corrected) 65.9 L Arterial Blood HCO3 20.0 L Arterial Blood Base Excess -3.0 Arterial Blood Oxygen Saturation 94.5 L Noe Test N/A Arterial Blood Gas Puncture Site Right Brachial Arterial Blood Carboxyhemoglobin 0.3 Arterial Blood Methemoglobin 0.3 Blood Gas A-a O2 Differential 91.7 H Oxyhemoglobin Percent 93.9 Total Hemoglobin 11.8 L Blood Gas Temperature 37.0 Blood Gas Modality NASAL CANNULA FiO2 27.0 Blood Gas Notified Whom TM Blood Gas Notified Time 05/25/2017 6:37:42 PM Troponin I < 0.012 0.029 White Blood Count 12.9 H Red Blood Count 3.08 L Hemoglobin 10.2 L Hematocrit 30.0 L Mean Corpuscular Volume 97.4 Mean Corpuscular Hemoglobin 33.1 H Mean Corpuscular Hemoglobin Concent 34.0 Red Cell Distribution Width 13.7 Platelet Count 201 Mean Platelet Volume 10.1 Neutrophils % 81.7 H Lymphocytes % 5.0 L Monocytes % 5.8 Eosinophils % 1.6 Basophils % 0.3 Nucleated Red Blood Cells % 0.0 Neutrophils # 10.6 H Lymphocytes # 0.6 L Monocytes # 0.8 Eosinophils # 0.2 Basophils # 0.0 Nucleated Red Blood Cells # 0.0 Prothrombin Time 14.3 H Prothrombin Time Ratio 1.1 INR International Normalized Ratio 1.11 Activated Partial Thromboplast Time 29.1 Sodium Level 138 Potassium Level 3.8 Chloride Level 110 Carbon Dioxide Level 22 Anion Gap 10 Blood Urea Nitrogen 12 Creatinine 1.00 Glucose Level 92 Lactic Acid Level 1.0 Calcium Level 8.0 L Phosphorus Level 2.6 Magnesium Level 1.8 Total Bilirubin 0.5 Direct Bilirubin 0.00 Indirect Bilirubin 0.5 Aspartate Amino Transf (AST/SGOT) 19 Alanine Aminotransferase (ALT/SGPT) 42 Alkaline Phosphatase 88 # B-Type Natriuretic Peptide 2870 H Total Protein 5.0 L Albumin 2.2 L Globulin 2.80 Albumin/Globulin Ratio 0.78 Test 05/26/17 10:52 Troponin I < 0.012 Medications Medications Current Medications Ondansetron HCl (Zofran Inj) 4 mg Q6H PRN IV NAUSEA AND/OR VOMITING Last administered on 05/26/17 08:34; Admin Dose 4 MG; Start 05/21/17 at 21:00 Hydromorphone HCl (Dilaudid) 0.5 mg Q2 PRN IV PAIN Last administered on 08:34; Admin Dose 0.5 MG; Start 05/23/17 at 18:30 Hydromorphone HCl (Dilaudid) 1 mg Q2 PRN IV PAIN Last administered on 11:27; Admin Dose 1 MG; Start 05/23/17 at 18:30 Docusate Sodium (Colace) 100 mg BID PRN PO CONSTIPATION; Start 05/23/17 at 18: 30 Bisacodyl (Dulcolax Supp) [address] CONSTIPATION; Start 05/23/17 at 18: 30 Sodium Biphosphate/ Sodium Phosphate (Fleet Enema) [address] CONSTIPATION; Start 05/23/17 at 18:30 Enoxaparin Sodium 40 mg 40 mg DAILY SC Last administered on 05/26/17 08:43; Admin Dose 40 MG; Start 05/24/17 at 09:00 Vancomycin HCl 250 ml @ 125 mls/hr Q24H IVPB ; Start 05/26/17 at 16:00 Ciprofloxacin/ Dextrose 200 ml @ 200 mls/hr Q12 IVPB Last administered on 08:34; Admin Dose 200 MLS/HR; Start 05/25/17 at 21:00 Metronidazole (Flagyl 500 Mg (Pmx)) 100 ml @ 100 mls/hr Q8 IVPB Last administered on 05/26/17 05:46; Admin Dose 100 MLS/HR; Start 05/25/17 at 22: 00 Furosemide (Lasix) 20 mg Q6 IV ; Start 05/26/17 at 12:00; Stop 05/27/17 at 06: 01 Ketorolac Tromethamine (Toradol) 15 mg Q6 IV ; Start 05/26/17 at 13:00; Stop 05/27/17 at 06:01 BRUNO TYSON May 26, 2017 12:26
[2017-05-26] MEDS: FUROSEMIDE 40 MG INJ IV SCH ×2 (12:39→17:09)
[2017-05-26] MEDS: KETOROLAC 30 MG INJ IV SCH ×2 (12:39→17:09)
--- NOTE | 2017-05-26 13:17 | RADRPT ---
Vent Rate: 125 bpm RR Interval: 0 msec VT Interval: 132 msec QRS Duration: 78 msec QT Interval: 306 msec QTC Interval: 441 msec P-R-T [place]: 24 - 2 - 9 degrees Sinus tachycardia Low voltage QRS Borderline ECG Electronically Signed By: Mike Fraser [id number]
[2017-05-26] MEDS: VANCOMYCIN 1 GM in NS 250 ML IVPB SCH (14:53)
--- NOTE | 2017-05-26 17:47 | PN ---
Date/Time of Note Date/Time of Note DATE: 05/26/17 TIME: 17:43 Assessment/Plan VTE Prophylaxis VTE Prophylaxis Intervention: SCD's Lines/Catheters IV Catheter Type (from Nrsg): Peripheral IV Urinary Cath still in place: No Assessment/Plan Assessment/Plan 72-year-old female with a history of diverticulosis, multiple abd surgeries admitted for high-grade SBO with possible strangulation. sp partial enterectomy with primary anastomosis with internal hernia reduction, and repair of serosal tears 11.14 #SBO with strangulation; sp surgical intervention 11.14 -general surgery on consult -PO status as per gen surg -culture result viewed. While antibiotic of choice for enterococcus would be ampicillin, pt with allergy (hives). Will thus treat with vancomycin at this time also cont cipro/flagyll -will need to be on IV vanc for 10 days total. will likely need PICC line prior to discharge #SOB: improving, likely 2/2 volume overload TTE pending appreciate cardiology assistance cont diuresis PT/OT and discharge planning Subjective 24 Hr Interval Summary Free Text/Dictation states her breathing feels better Exam/Review of Systems Vital Signs Vitals Vital Signs Date Time Temp Pulse Resp B/P Pulse Ox O2 Delivery O2 Flow Rate FiO2 05/26/17 15:42 98.3 104 19 135/78 96 05/26/17 08:00 Nasal Cannula 2.0 Intake and Output 05/25/17 05/25/17 05/26/17 15:00 23:00 07:00 Intake Total 1000 ml 1900 ml Output Total 425 ml Balance 575 ml 1900 ml Exam nad no mrg lungs clear abd soft no rashes BNP elevated Results Result Diagram: 05/26/17 0655 05/26/17 0655 Results 24 hrs Laboratory Tests Test 05/25/17 17:58 05/26/17 01:37 05/26/17 06:55 05/26/17 10:52 Troponin I < 0.012 0.029 < 0.012 White Blood Count 12.9 H Red Blood Count 3.08 L Hemoglobin 10.2 L Hematocrit 30.0 L Mean Corpuscular Volume 97.4 Mean Corpuscular Hemoglobin 33.1 H Mean Corpuscular Hemoglobin Concent 34.0 Red Cell Distribution Width 13.7 Platelet Count 201 Mean Platelet Volume 10.1 Neutrophils % 81.7 H Lymphocytes % 5.0 L Monocytes % 5.8 Eosinophils % 1.6 Basophils % 0.3 Nucleated Red Blood Cells % 0.0 Neutrophils # 10.6 H Lymphocytes # 0.6 L Monocytes # 0.8 Eosinophils # 0.2 Basophils # 0.0 Nucleated Red Blood Cells # 0.0 Prothrombin Time 14.3 H Prothrombin Time Ratio 1.1 INR International Normalized Ratio 1.11 Activated Partial Thromboplast Time 29.1 Sodium Level 138 Potassium Level 3.8 Chloride Level 110 Carbon Dioxide Level 22 Anion Gap 10 Blood Urea Nitrogen 12 Creatinine 1.00 Glucose Level 92 Lactic Acid Level 1.0 Calcium Level 8.0 L Phosphorus Level 2.6 Magnesium Level 1.8 Total Bilirubin 0.5 Direct Bilirubin 0.00 Indirect Bilirubin 0.5 Aspartate Amino Transf (AST/SGOT) 19 Alanine Aminotransferase (ALT/SGPT) 42 Alkaline Phosphatase 88 # B-Type Natriuretic Peptide 2870 H Total Protein 5.0 L Albumin 2.2 L Globulin 2.80 Albumin/Globulin Ratio 0.78 Medications Medications Current Medications Ondansetron HCl (Zofran Inj) 4 mg Q6H PRN IV NAUSEA AND/OR VOMITING Last administered on 05/26/17 08:34; Admin Dose 4 MG; Start 05/21/17 at 21:00 Hydromorphone HCl (Dilaudid) 0.5 mg Q2 PRN IV PAIN Last administered on 08:34; Admin Dose 0.5 MG; Start 05/23/17 at 18:30 Hydromorphone HCl (Dilaudid) 1 mg Q2 PRN IV PAIN Last administered on 11:27; Admin Dose 1 MG; Start 05/23/17 at 18:30 Docusate Sodium (Colace) 100 mg BID PRN PO CONSTIPATION; Start 05/23/17 at 18: 30 Bisacodyl (Dulcolax Supp) 10 mg BID PRN [place] CONSTIPATION; Start 05/23/17 at 18: 30 Sodium Biphosphate/ Sodium Phosphate (Fleet Enema) 133 ml BID PRN [place] CONSTIPATION; Start 05/23/17 at 18:30 Enoxaparin Sodium 40 mg 40 mg DAILY SC Last administered on 05/26/17 08:43; Admin Dose 40 MG; Start 05/24/17 at 09:00 Vancomycin HCl 250 ml @ 125 mls/hr Q24H IVPB Last administered on 05/26/17 14:53; Admin Dose 125 MLS/HR; Start 05/26/17 at 16:00 Ciprofloxacin/ Dextrose 200 ml @ 200 mls/hr Q12 IVPB Last administered on 08:34; Admin Dose 200 MLS/HR; Start 05/25/17 at 21:00 Metronidazole (Flagyl 500 Mg (Pmx)) 100 ml @ 100 mls/hr Q8 IVPB Last administered on 05/26/17 12:39; Admin Dose 100 MLS/HR; Start 05/25/17 at 22: 00 Ketorolac Tromethamine (Toradol) 15 mg Q6 IV Last administered on 05/26/17 17 :09; Admin Dose 15 MG; Start 05/26/17 at 13:00; Stop 05/27/17 at 06:01 WARREN RICHARDS MD May 26, 2017 17:47
--- NOTE | 2017-05-26 21:45 | PN ---
Date/Time of Note Date/Time of Note DATE: 05/26/17 TIME: 21:35 Assessment/Plan Lines/Catheters IV Catheter Type (from Nrs): Peripheral IV Orta in Place (from Nrs): No Assessment/Plan Assessment/Plan [facility] Progress Note Date of Service: 05/26/17 Location of Service: [address] Today's Assessment & Plan: Overall stable and seems improved. No major cardiopulmonary issue other than light fluid overload. Can likely benefit from gentle diuresis. Abdomen remains benign with less signs of post operative paralytic ileus. No indications of major postoperative complications or wound problems. No indication for acute surgical intervention. Awaiting further return of bowel function. With above assessment, I've recommended the following for today: 1. Continue current cares 2. Start advancing diet 3. Careful monitoring of vital signs 4. Strict I's and O's 5. Labs in a.m. 6. Increase activity 7. Incentive spirometry 8. Continue broad-spectrum antimicrobials 9. Gentle diuresis 10. PT Thank you again for your great care of this very pleasant patient and wonderful family. If there are any questions, please feel free to call me at [phone]. Nature of presenting problem: High severity Please note that, given the multiple number of diagnoses or management options, moderate amount and/or complexity of data needed to be reviewed, and high risk of complications and/or morbidity or mortality, this qualifies as moderate complexity type of decision-making. Disclaimers: 1. Inadvertent spelling and grammatical errors are likely due to electronic health record (EHR)/dictation software used and do not reflect on the quality of delivered patient care. 2. The electronic timestamp recorded on this note does not necessarily reflect the actual date and time of the visit or the service. 3. Portions of this note may have been created through electronic templates and computer algorithms that might bring in information either from the system or from other physicians and providers. Please note that such information may or may not contain errors, the occurrence of which are outside of my control. In general (but not always) this happens either in the beginning or at the end of the note. The portion of the note that I have created are generally done in 1 continuous block of text, flanked at the beginning and at the end by " ", and entered into one field in the EHR. 4. There may be other unanticipated errors in the note that are outside of my control. I can only attest to the portions of the note that I have created. Updated Clinical Summary: A very-pleasant 72-year-old lady with a few comorbidities including multiple operations in the past, presenting with a picture consistent with high-grade small bowel obstruction. Comorbidities: 1. Small bowel obstruction with bowel strangulation within pelvis internal hernia, bowel gangrene with perforation (localized). S/p an otherwise uncomplicated laparoscopic, hand-assisted reduction of internal hernia with partial enterectomy (terminal ileum, 10 cm) with primary anastomosis, repair of several serosal tears (all outer serosa and no full-thickness enterotomies; approximately 6 proximal to the area of anastomosis) and abdominal lavage at [facility] 05/23/17 with findings that were consistent with herniation of loop of terminal ileum into prior RAVEN/BSO cavity that had formed remnants of an internal ring and cause bowel strangulation, necrosis and localized perforation. 2. BMI 28.4 3. Hypertension 4. Diverticulosis 5. Surgery for endometriosis 6. RAVEN/BSO 7. Appendectomy (patient mentioned malignancy in the 1970s, but did not have any further details; no recent issues with malignancy, weight loss or other major concerns) 8. Cholelithiasis 9. Albumin 2.7 after resuscitation Subjective: No major events or complaints; no major abd pain and under control with medications; no n/v/d; no reported sob or cp; + bowel activity; minimal activity Objective: Vitals: See below Exam: GENERAL: On exam, the patient was laying in bed and appeared to be comfortable and in no acute distress. ABDOMEN: Soft, nontender and nondistended. Incisions are clean, dry and intact without any evidence of obvious erythema, edema, discharge, or hernia. There are no peritoneal signs or guarding. SKIN: Skin appears to be pink and feels warm to touch. NEUROLOGIC: Patient is awake, alert, and follows commands appropriately. Exam/Review of Systems Vital Signs Vitals Vital Signs Date Time Temp Pulse Resp B/P Pulse Ox O2 Delivery O2 Flow Rate FiO2 05/26/17 20:30 98.1 101 21 126/74 97 05/26/17 20:17 Nasal Cannula 2.0 Intake and Output 05/25/17 05/25/17 05/26/17 15:00 23:00 07:00 Intake Total 1000 ml 1900 ml Output Total 425 ml Balance 575 ml 1900 ml Results Result Diagram: 05/26/17 0655 05/26/17 0655 JOSE ENRIQUE GOMEZ M.D. May 26, 2017 21:45
[2017-05-27] VITALS (11 sets, daily range): BP systolic 127–150; BP diastolic 63–86; PULSE 84–93; RESP 18–20
[2017-05-27] MEDS: KETOROLAC 30 MG INJ IV SCH ×2 (00:35→06:28)
[2017-05-27] MEDS: FUROSEMIDE 40 MG INJ IV SCH (06:28)
[2017-05-27] MEDS: metroNIDAZOLE 500 MG/NS (PMX) 100 ML IVPB SCH ×3 (06:30→22:04)
[2017-05-27] MEDS: CIPROFLOXACIN 400MG/D5W 200 ML IVPB SCH ×2 (07:45→20:56)
[2017-05-27] MEDS: ENOXAPARIN 40 MG/0.4 ML SYG SC SCH (07:50)
[2017-05-27 08:47] LABS: ABNORMAL IP MESSAGE 1; HEMATOCRIT 29.7 % (37.0-47.0); HEMOGLOBIN 10.1 g/dl (12.0-16.0); MEAN CORPUSCULAR HEMOGLOBIN 32.4 pg (29.0-33.0); MEAN CORPUSCULAR VOLUME 95.2 fl (82.0-101.0); MEAN PLATELET VOLUME 9.8 fl (7.4-10.4); PLATELET COUNT 201 10^3/UL (140-415); RED BLOOD COUNT 3.12 10^6/ul (4.20-5.40); RED CELL DISTRIBUTION WIDTH 13.5 % (11.5-14.5); WHITE BLOOD COUNT 9.2 10^3/ul (4.8-10.8)
[2017-05-27 09:02] LABS: POSITIVE DIFF @See below
[2017-05-27 09:13] LABS: CALCIUM 7.8 mg/dl (8.4-10.2); CREATININE 1.09 mg/dl (0.44-1.00)
[2017-05-27 09:14] LABS: ALBUMIN/GLOBULIN RATIO 0.9; BILIRUBIN,INDIRECT 0.3 mg/dl (0-1.1); BILIRUBIN,TOTAL 0.3 mg/dl (0.2-1.3); CALCIUM 7.6 mg/dl (8.4-10.2); CREATININE 1.02 mg/dl (0.44-1.00); MAGNESIUM 1.5 mg/dl (1.7-2.5); PHOSPHORUS 3.2 mg/dl (2.5-4.9); POTASSIUM 3.2 mmol/L (3.5-5.1); TOTAL PROTEIN 4.2 g/dl (6.1-8.1)
[2017-05-27 09:29] LABS: INR 1.52; PARTIAL THROMBOPLASTIN TIME 32.3 Sec (25.0-35.0); PROTIME 18.4 Sec (12.2-14.2); PT RATIO 1.4
[2017-05-27 10:06] LABS: EOSINOPHILS % (M) 1 % (0-7); METAMYELOCYTES %M 11 % (0-0); PLATELET ESTIMATE NORMAL; POIKILOCYTOSIS 3+ (0-0); POLYCHROMASIA 3+ (0-0)
[2017-05-27] MEDS ORDERED: POTASSIUM CHLORIDE (SR) 20 MEQ TAB PO STA (10:21)
--- NOTE | 2017-05-27 10:23 | RADRPT ---
Echocardiogram Report Patient Name: HUMA FOOTE Gender: Female Date: 1945 Study Date: 26-May-2017 Professor Of Spanish: Aldo Eason [facility] Location: [address] Ref. Physician: WARREN RICHARDS Quality: Adequate Procedures: Transthoracic echocardiogram with complete 2D, M-Mode, and doppler examination. Indications: Shortness of breath. 2D/M Mode Doppler Measurement Value Normal Ranges Measurement Value Normal Ranges LVIDd 2D 2.8 3.5 - 5.6 cm AV Peak Iggy 1.7 m/sec LVIDs 2D 1.9 2.1 - 4.1 cm AV Peak PG 11.0 mmHg FS 2D 30.0 % LVOT Peak Iggy 1.3 m/sec LVPWd 2D 1.3 0.6 - 1.1 cm LVOT Peak PG 7.0 mmHg IVSd 2D 1.3 0.6 - 1.1 cm MV E Peak Iggy 0.8 m/sec IVS/LVPW 2D 1.0 MV A Peak Iggy 1.1 m/sec AoR Diam 2D 2.9 2.0 - 3.7 cm MV E/A 0.8 LA/Ao 2D 1 0 - 1 MV Decel Time 113 msec EDV 2D 21.3 cm3 MV E/A 0.8 ESV 2D 7.3 cm3 TR Peak Iggy 3.3 m/sec LA Dimen 2D 3.4 2.3 - 4.0 cm TR Peak PG 44.0 mmHg RVSP 47.0 mmHg Findings Left Ventricle: Normal left ventricular systolic function. Normal left ventricular cavity size. Mild concentric left ventricular hypertrophy. Ejection fraction is visually estimated at 65 %. Tissue Doppler/Mitral Doppler indices are consistent with impaired relaxation (Stage I diastolic dysfunction). Right Ventricle: Normal right ventricular size. Normal right ventricular systolic function. Left Atrium: There is mild enlargement of left atrium. Right Atrium: The right atrium is normal in size. Mitral Valve: Normal appearance and function of the mitral valve with trace physiologic regurgitation. Aortic Valve: Normal appearance of the aortic valve. No significant aortic stenosis or insufficiency. Tricuspid Valve: Normal appearance of the tricuspid valve. Estimated peak PA systolic pressure 52 mmHg. There is mild tricuspid regurgitation. Pulmonic Valve: Pulmonic valve not well visualized. There is trace pulmonic regurgitation. Pericardium: Normal pericardium with no significant pericardial effusion. Left pleural effusion seen. Aorta: Normal aortic root. IVC: Normal size and no respiratory collapse consistent with elevated right atrial pressure. Conclusions 1.Normal left ventricular systolic function. Normal left ventricular cavity size. Mild concentric left ventricular hypertrophy. Ejection fraction is visually estimated at 65 %. Tissue Doppler/Mitral Doppler indices are consistent with impaired relaxation (Stage I diastolic dysfunction). 2.No significant valvular stenosis or regurgitation seen. 3.Estimated peak PA systolic pressure 52 mmHg based on RA pressure of 3 mmHg. Electronically Signed By: Ricci Canchola 27-May-2017 10:22:45 -0800 Patient Name: HUMA FOOTE Study Date: 26-May-[id number]
[2017-05-27] MEDS ORDERED: POTASSIUM CHLORIDE 20 MEQ POWDER FOR ORAL SOLN PO STA (10:39)
--- NOTE | 2017-05-27 10:52 | PN ---
Date/Time of Note Date/Time of Note DATE: 05/27/17 TIME: 10:51 Assessment/Plan Lines/Catheters IV Catheter Type (from [facility]): Peripheral IV Orta in Place (from [facility]): No Assessment/Plan Assessment/Plan [facility] Progress Note Date of Service: 05/27/17 Location of Service: [address] Today's Assessment & Plan: Overall stable and seems improved on most fronts. No major cardiopulmonary issue ; still with high BNP indicating possible light fluid overload. Can likely benefit from further gentle diuresis. Abdomen remains benign with signs of resolution of post operative paralytic ileus. Tachycardia resolved and WBC normal. No indications of major postoperative complications or wound problems. No indication for acute surgical intervention. Awaiting further return of bowel function. With above assessment, I've recommended the following for today: 1. Continue current cares 2. Continue advancing diet 3. Careful monitoring of vital signs 4. Strict I's and O's 5. Labs in a.m. 6. Increase activity 7. Incentive spirometry 8. Continue broad-spectrum antimicrobials 9. Gentle diuresis 10. PT Thank you again for your great care of this very pleasant patient and wonderful family. If there are any questions, please feel free to call me at [phone]. Nature of presenting problem: High severity Please note that, given the multiple number of diagnoses or management options, moderate amount and/or complexity of data needed to be reviewed, and high risk of complications and/or morbidity or mortality, this qualifies as moderate complexity type of decision-making. Disclaimers: 1. Inadvertent spelling and grammatical errors are likely due to electronic health record (EHR)/dictation software used and do not reflect on the quality of delivered patient care. 2. The electronic timestamp recorded on this note does not necessarily reflect the actual date and time of the visit or the service. 3. Portions of this note may have been created through electronic templates and computer algorithms that might bring in information either from the system or from other physicians and providers. Please note that such information may or may not contain errors, the occurrence of which are outside of my control. In general (but not always) this happens either in the beginning or at the end of the note. The portion of the note that I have created are generally done in 1 continuous block of text, flanked at the beginning and at the end by " ", and entered into one field in the EHR. 4. There may be other unanticipated errors in the note that are outside of my control. I can only attest to the portions of the note that I have created. Updated Clinical Summary: A very-pleasant 72-year-old lady with a few comorbidities including multiple operations in the past, presenting with a picture consistent with high-grade small bowel obstruction. Comorbidities: 1. Small bowel obstruction with bowel strangulation within pelvis internal hernia, bowel gangrene with perforation (localized). S/p an otherwise uncomplicated laparoscopic, hand-assisted reduction of internal hernia with partial enterectomy (terminal ileum, 10 cm) with primary anastomosis, repair of several serosal tears (all outer serosa and no full-thickness enterotomies; approximately 6 proximal to the area of anastomosis) and abdominal lavage at [facility] 05/23/17 with findings that were consistent with herniation of loop of terminal ileum into prior RAVEN/BSO cavity that had formed remnants of an internal ring and cause bowel strangulation, necrosis and localized perforation. 2. BMI 28.4 3. Hypertension 4. Diverticulosis 5. Surgery for endometriosis 6. RAVEN/BSO 7. Appendectomy (patient mentioned malignancy in the 1970s, but did not have any further details; no recent issues with malignancy, weight loss or other major concerns) 8. Cholelithiasis 9. Albumin 2.7 after resuscitation Subjective: No major events or complaints; no major abd pain and under control with medications; no n/v/d; no reported sob or cp; + bowel activity; minimal activity Objective: Vitals: See below Exam: GENERAL: On exam, the patient was laying in bed and appeared to be comfortable and in no acute distress. ABDOMEN: Soft, nontender and nondistended. Incisions are clean, dry and intact without any evidence of obvious erythema, edema, discharge, or hernia. There are no peritoneal signs or guarding. SKIN: Skin appears to be pink and feels warm to touch. NEUROLOGIC: Patient is awake, alert, and follows commands appropriately. Exam/Review of Systems Vital Signs Vitals Vital Signs Date Time Temp Pulse Resp B/P Pulse Ox O2 Delivery O2 Flow Rate FiO2 05/27/17 08:28 Nasal Cannula 1.5 05/27/17 08:09 90 05/27/17 07:29 98.3 19 133/65 99 Intake and Output 05/26/17 05/26/17 05/27/17 15:00 23:00 07:00 Intake Total 600 ml 1350 ml 600 ml Output Total 1700 ml 800 ml Balance 600 ml -350 ml -200 ml Results Result Diagram: 05/27/17 0809 05/27/17 0809 JOSE ENRIQUE GOMEZ M.D. May 27, 2017 10:52
[2017-05-27] MEDS ORDERED: MAGNESIUM SULFATE 4 GM/100 ML 100 ML IVPB ONE (11:00)
--- NOTE | 2017-05-27 11:46 | CONS ---
Date/Time of Note Date/Time of Note DATE: 05/27/17 TIME: 11:43 Assessment/Plan Assessment/Plan Chief Complaint/Hosp Course Acute diastolic heart failure: EF preserved. Pt was net positive 17L since admission which is likely accurate as she had a price. Albumin also very low which is contributing. Much improved with diuresis Sinus tachycardia: Compensatory due to above. Resolved with diuresis SBO/incarcerated hernia s/p surgical repair 05/23 Sepsis: on antibiotics -decrease to lasix 20mg IV BID -replete lytes Problems: Consultation Date/Type/Reason Admit Date/Time May 21, 2017 at 20:05 Initial Consult Date 05/26/17 Type of Consultation: Cardiology Referring Provider: WARREN RICHARDS MD 24 HR Interval Summary Free Text/Dictation SOB much improved. Diuresing well. HR improved. Exam/Review of Systems Vital Signs Vitals Vital Signs Date Time Temp Pulse Resp B/P Pulse Ox O2 Delivery O2 Flow Rate FiO2 05/27/17 08:28 Nasal Cannula 1.5 05/27/17 08:09 90 05/27/17 07:29 98.3 19 133/65 99 Intake and Output 05/26/17 05/26/17 05/27/17 15:00 23:00 07:00 Intake Total 600 ml 1350 ml 600 ml Output Total 1700 ml 800 ml Balance 600 ml -350 ml -200 ml Exam Constitutional: alert, oriented Psych: nl mood/affect, no complaints Head: atraumatic, normocephalic Neck: jvd (8cm) Respiratory: crackles/rales (mid lungs, improved ), No clear to auscultation Cardiovascular: edema (trace), regular rate and rhythm, No systolic murmur Gastrointestinal: non-tender, soft Neurological: nl mental status, nl speech Skin: No rash or lesions Results Result Diagram: 05/27/17 0809 05/27/17 0809 Results 24 hrs Laboratory Tests Test 05/27/17 08:09 White Blood Count 9.2 # Red Blood Count 3.12 L Hemoglobin 10.1 L Hematocrit 29.7 L Mean Corpuscular Volume 95.2 Mean Corpuscular Hemoglobin 32.4 Mean Corpuscular Hemoglobin Concent 34.0 Red Cell Distribution Width 13.5 Platelet Count 201 Mean Platelet Volume 9.8 Neutrophils % Segmented Neutrophils % (Manual) 70 Band Neutrophils % (Manual) 12 H Lymphocytes % Lymphocytes % (Manual) 6 L Monocytes % Eosinophils % Eosinophils % (Manual) 1 Basophils % Metamyelocytes % (manual) 11 H Nucleated Red Blood Cells % 0.0 Neutrophils # Neutrophils # (Manual) 6.5 Band Neutrophils # 1.1 H Absolute Lymphocytes (Manual) 0.5 L Lymphocytes # Monocytes # Eosinophils # Basophils # Metamyelocytes # 1.0 H Nucleated Red Blood Cells # Platelet Estimate NORMAL Polychromasia 3+ Poikilocytosis 3+ Prothrombin Time 18.4 #H Prothrombin Time Ratio 1.4 INR International Normalized Ratio 1.52 Activated Partial Thromboplast Time 32.3 Sodium Level 138 Potassium Level 3.0 L Chloride Level 107 Carbon Dioxide Level 24 Anion Gap 10 Blood Urea Nitrogen 11 Creatinine 1.09 H Glucose Level 88 Calcium Level 7.8 L Phosphorus Level 3.2 Magnesium Level 1.5 L Total Bilirubin 0.3 Direct Bilirubin 0.00 Indirect Bilirubin 0.3 Aspartate Amino Transf (AST/SGOT) 39 Alanine Aminotransferase (ALT/SGPT) 38 Alkaline Phosphatase 113 B-Type Natriuretic Peptide 2610 H Total Protein 4.2 L Albumin 2.0 L Globulin 2.20 Albumin/Globulin Ratio 0.90 Medications Medications Current Medications Ondansetron HCl (Zofran Inj) 4 mg Q6H PRN IV NAUSEA AND/OR VOMITING Last administered on 05/26/17 08:34; Admin Dose 4 MG; Start 05/21/17 at 21:00 Hydromorphone HCl (Dilaudid) 0.5 mg Q2 PRN IV PAIN Last administered on 08:34; Admin Dose 0.5 MG; Start 05/23/17 at 18:30 Hydromorphone HCl (Dilaudid) 1 mg Q2 PRN IV PAIN Last administered on 11:27; Admin Dose 1 MG; Start 05/23/17 at 18:30 Docusate Sodium (Colace) 100 mg BID PRN PO CONSTIPATION; Start 05/23/17 at 18: 30 Bisacodyl (Dulcolax Supp) 10 mg BID PRN [place] CONSTIPATION; Start 05/23/17 at 18: 30 Sodium Biphosphate/ Sodium Phosphate (Fleet Enema) 133 ml BID PRN [place] CONSTIPATION; Start 05/23/17 at 18:30 Enoxaparin Sodium 40 mg 40 mg DAILY SC Last administered on 05/27/17 07:50; Admin Dose 40 MG; Start 05/24/17 at 09:00 Vancomycin HCl 250 ml @ 125 mls/hr Q24H IVPB Last administered on 05/26/17 14:53; Admin Dose 125 MLS/HR; Start 05/26/17 at 16:00 Ciprofloxacin/ Dextrose 200 ml @ 200 mls/hr Q12 IVPB Last administered on 07:45; Admin Dose 200 MLS/HR; Start 05/25/17 at 21:00 Metronidazole 100 ml @ 100 mls/hr Q8 IVPB Last administered on 05/27/17 06: 30; Admin Dose 100 MLS/HR; Start 05/25/17 at 22:00 Potassium Chloride 50 ml @ 50 mls/hr Q1H IVPB ; Start 05/27/17 at 11:00; Stop 05/27/17 at 12:59 Magnesium Sulfate (Magnesium Sulfate 4 Gm/100 ml) 100 ml @ 25 mls/hr ONCE ONCE IVPB ; Start 05/27/17 at 11:00; Stop 05/27/17 at 14:59 Furosemide (Lasix) 20 mg Q6 IV Last administered on 05/27/17 11:18; Admin Dose 20 MG; Start 05/27/17 at 12:00; Stop 05/28/17 at 06:01 BRUNO TYSON May 27, 2017 11:46
[2017-05-27] MEDS ORDERED: FUROSEMIDE 20 MG INJ IV SCH (12:00)
[2017-05-27] MEDS: POTASSIUM CHLORIDE 50 ML IVPB SCH ×2 (12:17→12:18)
[2017-05-27] MEDS ORDERED: POTASSIUM CHLORIDE 20 MEQ POWDER FOR ORAL SOLN PO ONE (14:30)
[2017-05-27] MEDS: VANCOMYCIN 1 GM in NS 250 ML IVPB SCH (16:33)
--- NOTE | 2017-05-27 17:55 | PN ---
Date/Time of Note Date/Time of Note DATE: 05/27/17 TIME: 17:54 Assessment/Plan VTE Prophylaxis VTE Prophylaxis Intervention: SCD's Lines/Catheters IV Catheter Type (from Nrsg): Peripheral IV Urinary Cath still in place: No Assessment/Plan Assessment/Plan 72-year-old female with a history of diverticulosis, multiple abd surgeries admitted for high-grade SBO with possible strangulation. sp partial enterectomy with primary anastomosis with internal hernia reduction, and repair of serosal tears 11.14 #SBO with strangulation; sp surgical intervention 11.14 -general surgery on consult -PO status as per gen surg -culture result viewed. While antibiotic of choice for enterococcus would be ampicillin, pt with allergy (hives). Will thus treat with vancomycin at this time also cont cipro/flagyll -will need to be on IV vanc for 10 days total. will likely need PICC line prior to discharge #SOB: improving, likely 2/2 volume overload TTE with preserved EF, stage 1 DD appreciate cardiology assistance cont diuresis PT/OT and discharge planning Subjective 24 Hr Interval Summary Free Text/Dictation evacuating her bladder at time of my evaluation Exam/Review of Systems Vital Signs Vitals Vital Signs Date Time Temp Pulse Resp B/P Pulse Ox O2 Delivery O2 Flow Rate FiO2 05/27/17 16:12 93 05/27/17 15:23 98.1 19 129/86 96 05/27/17 13:57 2.0 05/27/17 08:28 Nasal Cannula Intake and Output 05/26/17 05/26/17 05/27/17 15:00 23:00 07:00 Intake Total 600 ml 1350 ml 600 ml Output Total 1700 ml 800 ml Balance 600 ml -350 ml -200 ml Exam nad mo mrg resp nonlabored abd soft no rashes Results Result Diagram: 05/27/17 0809 05/27/17 0809 Results 24 hrs Laboratory Tests Test 05/27/17 08:09 White Blood Count 9.2 # Red Blood Count 3.12 L Hemoglobin 10.1 L Hematocrit 29.7 L Mean Corpuscular Volume 95.2 Mean Corpuscular Hemoglobin 32.4 Mean Corpuscular Hemoglobin Concent 34.0 Red Cell Distribution Width 13.5 Platelet Count 201 Mean Platelet Volume 9.8 Neutrophils % Segmented Neutrophils % (Manual) 70 Band Neutrophils % (Manual) 12 H Lymphocytes % Lymphocytes % (Manual) 6 L Monocytes % Eosinophils % Eosinophils % (Manual) 1 Basophils % Metamyelocytes % (manual) 11 H Nucleated Red Blood Cells % 0.0 Neutrophils # Neutrophils # (Manual) 6.5 Band Neutrophils # 1.1 H Absolute Lymphocytes (Manual) 0.5 L Lymphocytes # Monocytes # Eosinophils # Basophils # Metamyelocytes # 1.0 H Nucleated Red Blood Cells # Platelet Estimate NORMAL Polychromasia 3+ Poikilocytosis 3+ Prothrombin Time 18.4 #H Prothrombin Time Ratio 1.4 INR International Normalized Ratio 1.52 Activated Partial Thromboplast Time 32.3 Sodium Level 138 Potassium Level 3.0 L Chloride Level 107 Carbon Dioxide Level 24 Anion Gap 10 Blood Urea Nitrogen 11 Creatinine 1.09 H Glucose Level 88 Calcium Level 7.8 L Phosphorus Level 3.2 Magnesium Level 1.5 L Total Bilirubin 0.3 Direct Bilirubin 0.00 Indirect Bilirubin 0.3 Aspartate Amino Transf (AST/SGOT) 39 Alanine Aminotransferase (ALT/SGPT) 38 Alkaline Phosphatase 113 B-Type Natriuretic Peptide 2610 H Total Protein 4.2 L Albumin 2.0 L Globulin 2.20 Albumin/Globulin Ratio 0.90 Medications Medications Current Medications Ondansetron HCl (Zofran Inj) 4 mg Q6H PRN IV NAUSEA AND/OR VOMITING Last administered on 05/26/17 08:34; Admin Dose 4 MG; Start 05/21/17 at 21:00 Hydromorphone HCl (Dilaudid) 0.5 mg Q2 PRN IV PAIN Last administered on 08:34; Admin Dose 0.5 MG; Start 05/23/17 at 18:30 Hydromorphone HCl (Dilaudid) 1 mg Q2 PRN IV PAIN Last administered on 11:27; Admin Dose 1 MG; Start 05/23/17 at 18:30 Docusate Sodium (Colace) 100 mg BID PRN PO CONSTIPATION; Start 05/23/17 at 18: 30 Bisacodyl (Dulcolax Supp) 10 mg BID PRN [place] CONSTIPATION; Start 05/23/17 at 18: 30 Sodium Biphosphate/ Sodium Phosphate (Fleet Enema) 133 ml BID PRN [place] CONSTIPATION; Start 05/23/17 at 18:30 Enoxaparin Sodium 40 mg 40 mg DAILY SC Last administered on 05/27/17 07:50; Admin Dose 40 MG; Start 05/24/17 at 09:00 Vancomycin HCl 250 ml @ 125 mls/hr Q24H IVPB Last administered on 05/27/17 16:33; Admin Dose 125 MLS/HR; Start 05/26/17 at 16:00 Ciprofloxacin/ Dextrose 200 ml @ 200 mls/hr Q12 IVPB Last administered on 07:45; Admin Dose 200 MLS/HR; Start 05/25/17 at 21:00 Metronidazole (Flagyl 500 Mg (Pmx)) 100 ml @ 100 mls/hr Q8 IVPB Last administered on 05/27/17 14:24; Admin Dose 100 MLS/HR; Start 05/25/17 at 22: 00 Miscellaneous Information (*Rx Drug Level Order Reminder*) 1 ONCE ONCE XX ; Start 05/28/17 at 15:00; Stop 05/28/17 at 15:01 WARREN RICHARDS MD May 27, 2017 17:55
[2017-05-27] MEDS: FUROSEMIDE 20 MG INJ IV SCH (18:35)
[2017-05-28] VITALS (10 sets, daily range): BP systolic 120–145; BP diastolic 58–79; PULSE 81–89; RESP 16–22
[2017-05-28] MEDS: metroNIDAZOLE 500 MG/NS (PMX) 100 ML IVPB SCH (05:26)
[2017-05-28] MEDS: FUROSEMIDE 20 MG INJ IV SCH ×2 (05:29→18:22)
[2017-05-28 08:13] LABS: ABNORMAL IP MESSAGE 1; HEMOGLOBIN 10.4 g/dl (12.0-16.0); MEAN CORPUSCULAR HEMOGLOBIN 32.4 pg (29.0-33.0); MEAN CORPUSCULAR HGB CONC 34.7 g/dl (32.0-37.0); MEAN CORPUSCULAR VOLUME 93.5 fl (82.0-101.0); MEAN PLATELET VOLUME 9.8 fl (7.4-10.4); PLATELET COUNT 212 10^3/UL (140-415); RED BLOOD COUNT 3.21 10^6/ul (4.20-5.40); RED CELL DISTRIBUTION WIDTH 13.5 % (11.5-14.5); WHITE BLOOD COUNT 10.8 10^3/ul (4.8-10.8)
[2017-05-28 08:22] LABS: POSITIVE DIFF @See below
[2017-05-28 08:39] LABS: CALCIUM 7.7 mg/dl (8.4-10.2); CREATININE 1.04 mg/dl (0.44-1.00); INR 0.97; PARTIAL THROMBOPLASTIN TIME 27.8 Sec (25.0-35.0); PHOSPHORUS 3.1 mg/dl (2.5-4.9); POTASSIUM 3.2 mmol/L (3.5-5.1); PROTIME 12.9 Sec (12.2-14.2)
[2017-05-28] MEDS: CIPROFLOXACIN 400MG/D5W 200 ML IVPB SCH (08:59)
[2017-05-28] MEDS: ENOXAPARIN 40 MG/0.4 ML SYG SC SCH (09:05)
[2017-05-28 09:35] LABS: EOSINOPHILS % (M) 2 % (0-7); METAMYELOCYTES %M 1 % (0-0); MONOCYTES % (M) 7 % (0-11); MYELOCYTES % (M) 4 % (0-0); OVALOCYTES 1+ (0-0); PLASMA CELLS #M 0.1 10^3/ul (0.0-0.0); PLASMAC%(M) 1 % (0); PLATELET ESTIMATE NORMAL; POIKILOCYTOSIS 1+ (0-0); POLYCHROMASIA 1+ (0-0); REACTIVE LYMPHOCYTES% (M) 2 % (0-0)
--- NOTE | 2017-05-28 09:56 | PN ---
Date/Time of Note Date/Time of Note DATE: 05/28/17 TIME: 09:54 Assessment/Plan Lines/Catheters IV Catheter Type (from [facility]): Saline Lock Orta in Place (from [facility]): No Assessment/Plan Assessment/Plan [facility] Progress Note Date of Service: 05/28/17 Location of Service: [address] Today's Assessment & Plan: Overall stable and seems improved on most fronts. No major cardiopulmonary issue ; still with high BNP indicating possible light fluid overload. Can likely benefit from further gentle diuresis. Abdomen remains benign with signs of resolution of post operative paralytic ileus. Tachycardia resolved and WBC normal for 48 hrs; will d/c antimicrobials. No indications of major postoperative complications or wound problems. No indication for acute surgical intervention. Awaiting further return of bowel function. With above assessment, I've recommended the following for today: 1. Continue current cares 2. Continue advancing diet 3. Careful monitoring of vital signs 4. Strict I's and O's 5. Labs in a.m. 6. Increase activity 7. Incentive spirometry 8. D/c broad-spectrum antimicrobials 9. Cont gentle diuresis 10. Cont PT 11. Transfer to 6W or 4W Thank you again for your great care of this very pleasant patient and wonderful family. If there are any questions, please feel free to call me at [phone]. Nature of presenting problem: High severity Please note that, given the multiple number of diagnoses or management options, moderate amount and/or complexity of data needed to be reviewed, and high risk of complications and/or morbidity or mortality, this qualifies as moderate complexity type of decision-making. Disclaimers: 1. Inadvertent spelling and grammatical errors are likely due to electronic health record (EHR)/dictation software used and do not reflect on the quality of delivered patient care. 2. The electronic timestamp recorded on this note does not necessarily reflect the actual date and time of the visit or the service. 3. Portions of this note may have been created through electronic templates and computer algorithms that might bring in information either from the system or from other physicians and providers. Please note that such information may or may not contain errors, the occurrence of which are outside of my control. In general (but not always) this happens either in the beginning or at the end of the note. The portion of the note that I have created are generally done in 1 continuous block of text, flanked at the beginning and at the end by " ", and entered into one field in the EHR. 4. There may be other unanticipated errors in the note that are outside of my control. I can only attest to the portions of the note that I have created. Updated Clinical Summary: A very-pleasant 72-year-old lady with a few comorbidities including multiple operations in the past, presenting with a picture consistent with high-grade small bowel obstruction. Comorbidities: 1. Small bowel obstruction with bowel strangulation within pelvis internal hernia, bowel gangrene with perforation (localized). S/p an otherwise uncomplicated laparoscopic, hand-assisted reduction of internal hernia with partial enterectomy (terminal ileum, 10 cm) with primary anastomosis, repair of several serosal tears (all outer serosa and no full-thickness enterotomies; approximately 6 proximal to the area of anastomosis) and abdominal lavage at [facility] 05/23/17 with findings that were consistent with herniation of loop of terminal ileum into prior RAVEN/BSO cavity that had formed remnants of an internal ring and cause bowel strangulation, necrosis and localized perforation. 2. BMI 28.4 3. Hypertension 4. Diverticulosis 5. Surgery for endometriosis 6. RAVEN/BSO 7. Appendectomy (patient mentioned malignancy in the 1970s, but did not have any further details; no recent issues with malignancy, weight loss or other major concerns) 8. Cholelithiasis 9. Albumin 2.7 after resuscitation Subjective: No major events or complaints; no major abd pain and under control with medications; no n/v/d; no reported sob or cp; + bowel activity; minimal activity ; reports still feeling weak Objective: Vitals: See below Exam: GENERAL: On exam, the patient was laying in bed and appeared to be comfortable and in no acute distress. ABDOMEN: Soft, nontender and nondistended. Incisions are clean, dry and intact without any evidence of obvious erythema, edema, discharge, or hernia. There are no peritoneal signs or guarding. SKIN: Skin appears to be pink and feels warm to touch. NEUROLOGIC: Patient is awake, alert, and follows commands appropriately. Exam/Review of Systems Vital Signs Vitals Vital Signs Date Time Temp Pulse Resp B/P Pulse Ox O2 Delivery O2 Flow Rate FiO2 05/28/17 08:26 97.5 87 22 140/67 96 05/28/17 02:34 2.0 05/27/17 08:28 Nasal Cannula Intake and Output 05/27/17 05/27/17 05/28/17 14:59 22:59 06:59 Intake Total 1600 ml 330 ml Output Total 1600 ml 850 ml Balance 0 ml -520 ml Results Result Diagram: 05/28/17 0713 05/28/17 0713 JOSE ENRIQUE GOMEZ M.D. May 28, 2017 09:56
[2017-05-28] MEDS: POTASSIUM CHLORIDE 20 MEQ POWDER FOR ORAL SOLN PO SCH ×2 (10:31→21:21)
--- NOTE | 2017-05-28 10:33 | CONS ---
Date/Time of Note Date/Time of Note DATE: 05/28/17 TIME: 10:32 Assessment/Plan Assessment/Plan Chief Complaint/Hosp Course Acute diastolic heart failure: EF preserved. Pt was net positive 17L since admission which is likely accurate as she had a price. Albumin also very low which is contributing. Much improved with diuresis Sinus tachycardia: Compensatory due to above. Resolved with diuresis SBO/incarcerated hernia s/p surgical repair 05/23 Sepsis: on antibiotics -continue lasix 20mg IV BID -replete lytes Problems: Consultation Date/Type/Reason Admit Date/Time May 21, 2017 at 20:05 Initial Consult Date 05/26/17 Type of Consultation: Cardiology Referring Provider: WARREN RICHARDS MD 24 HR Interval Summary Free Text/Dictation SOB improved. Doing well overall Exam/Review of Systems Vital Signs Vitals Vital Signs Date Time Temp Pulse Resp B/P Pulse Ox O2 Delivery O2 Flow Rate FiO2 05/28/17 08:26 97.5 87 22 140/67 96 05/28/17 02:34 2.0 05/27/17 08:28 Nasal Cannula Intake and Output 05/27/17 05/27/17 05/28/17 15:00 23:00 07:00 Intake Total 1600 ml 330 ml Output Total 1600 ml 850 ml Balance 0 ml -520 ml Exam Constitutional: alert, oriented Psych: nl mood/affect, no complaints Head: atraumatic, normocephalic Neck: jvd (8cm) Respiratory: crackles/rales (mid lungs ), No clear to auscultation Cardiovascular: regular rate and rhythm, systolic murmur (2/6 KYAW), No edema Gastrointestinal: non-tender, soft, No distended Neurological: nl mental status, nl speech Results Result Diagram: 05/28/1713 05/28/1713 Results 24 hrs Laboratory Tests Test 05/28/17 07:13 White Blood Count 10.8 Red Blood Count 3.21 L Hemoglobin 10.4 L Hematocrit 30.0 L Mean Corpuscular Volume 93.5 Mean Corpuscular Hemoglobin 32.4 Mean Corpuscular Hemoglobin Concent 34.7 Red Cell Distribution Width 13.5 Platelet Count 212 Mean Platelet Volume 9.8 Neutrophils % Segmented Neutrophils % (Manual) 76 Band Neutrophils % (Manual) 2 Lymphocytes % Lymphocytes % (Manual) 5 L Reactive Lymphocytes % (Manual) 2 H Monocytes % Monocytes % (Manual) 7 Eosinophils % Eosinophils % (Manual) 2 Basophils % Metamyelocytes % (manual) 1 H Myelocytes % (Manual) 4 H Plasma Cells % (manual) 1 Nucleated Red Blood Cells % 0.0 Neutrophils # Neutrophils # (Manual) 8.2 H Band Neutrophils # 0.2 Absolute Lymphocytes (Manual) 0.5 L Lymphocytes # Reactive Lymphocytes # 0.2 H Monocytes # Absolute Monocytes (Manual) 0.7 Eosinophils # Basophils # Metamyelocytes # 0.1 H Myelocytes # 0.4 H Plasma Cells # (manual) 0.1 H Nucleated Red Blood Cells # Platelet Estimate NORMAL Polychromasia 1+ Poikilocytosis 1+ Ovalocytes 1+ Prothrombin Time 12.9 # Prothrombin Time Ratio 1.0 INR International Normalized Ratio 0.97 Activated Partial Thromboplast Time 27.8 Sodium Level 135 Potassium Level 3.2 L Chloride Level 104 Carbon Dioxide Level 26 Anion Gap 8 Blood Urea Nitrogen 11 Creatinine 1.04 H Glucose Level 87 Calcium Level 7.7 L Phosphorus Level 3.1 Magnesium Level 2.0 B-Type Natriuretic Peptide 3370 H Medications Medications Current Medications Ondansetron HCl (Zofran Inj) 4 mg Q6H PRN IV NAUSEA AND/OR VOMITING Last administered on 05/26/17 08:34; Admin Dose 4 MG; Start 05/21/17 at 21:00 Hydromorphone HCl (Dilaudid) 0.5 mg Q2 PRN IV PAIN Last administered on 08:34; Admin Dose 0.5 MG; Start 05/23/17 at 18:30 Hydromorphone HCl (Dilaudid) 1 mg Q2 PRN IV PAIN Last administered on 11:27; Admin Dose 1 MG; Start 05/23/17 at 18:30 Docusate Sodium (Colace) 100 mg BID PRN PO CONSTIPATION; Start 05/23/17 at 18: 30 Bisacodyl (Dulcolax Supp) 10 mg BID PRN [place] CONSTIPATION; Start 05/23/17 at 18: 30 Sodium Biphosphate/ Sodium Phosphate (Fleet Enema) 133 ml BID PRN [place] CONSTIPATION; Start 05/23/17 at 18:30 Enoxaparin Sodium (Lovenox) 40 mg DAILY SC Last administered on 05/28/17 09: 05; Admin Dose 40 MG; Start 05/24/17 at 09:00 Miscellaneous Information (*Rx Drug Level Order Reminder*) 1 ONCE ONCE XX ; Start 05/28/17 at 15:00; Stop 05/28/17 at 15:01 Potassium Chloride (Potassium Chloride Pwd/Soln) 40 meq BID PO Last administered on 05/28/17 10:31; Admin Dose 40 MEQ; Start 05/28/17 at 10:00; Stop 05/29/17 at 00:00 BRUNO TYSON May 28, 2017 10:33
[2017-05-28] MEDS ORDERED: POTASSIUM CHLORIDE (SR) 20 MEQ TAB PO STA (13:05)
--- NOTE | 2017-05-28 15:56 | PN ---
Date/Time of Note Date/Time of Note DATE: 05/28/17 TIME: 15:52 Assessment/Plan VTE Prophylaxis VTE Prophylaxis Intervention: SCD's Lines/Catheters IV Catheter Type (from Nrs): Saline Lock Urinary Cath still in place: No Assessment/Plan Assessment/Plan 72-year-old female with a history of diverticulosis, multiple abd surgeries admitted for high-grade SBO with possible strangulation. sp partial enterectomy with primary anastomosis with internal hernia reduction, and repair of serosal tears 11.14 #SBO with strangulation; sp surgical intervention 11.14 -general surgery on consult -PO status as per gen surg -abx appear to have been stopped by surgery #SOB: RESOLVED, likely 2/2 volume overload TTE with preserved EF, stage 1 DD appreciate cardiology assistance cont diuresis PT/OT and discharge planning Subjective 24 Hr Interval Summary Free Text/Dictation Feels much better breathingwise, adamantly does not want a SNF Exam/Review of Systems Vital Signs Vitals Vital Signs Date Time Temp Pulse Resp B/P Pulse Ox O2 Delivery O2 Flow Rate FiO2 05/28/17 15:21 98.0 84 19 128/75 99 05/28/17 13:49 2.0 05/27/17 08:28 Nasal Cannula Intake and Output 05/27/17 05/27/17 05/28/17 14:59 22:59 06:59 Intake Total 1600 ml 330 ml Output Total 1600 ml 850 ml Balance 0 ml -520 ml Exam nad lungs clear abd soft no rashes no edema Results Result Diagram: 05/28/17 0713 05/28/17 0713 Results 24 hrs Laboratory Tests Test 05/28/17 07:13 White Blood Count 10.8 Red Blood Count 3.21 L Hemoglobin 10.4 L Hematocrit 30.0 L Mean Corpuscular Volume 93.5 Mean Corpuscular Hemoglobin 32.4 Mean Corpuscular Hemoglobin Concent 34.7 Red Cell Distribution Width 13.5 Platelet Count 212 Mean Platelet Volume 9.8 Neutrophils % Segmented Neutrophils % (Manual) 76 Band Neutrophils % (Manual) 2 Lymphocytes % Lymphocytes % (Manual) 5 L Reactive Lymphocytes % (Manual) 2 H Monocytes % Monocytes % (Manual) 7 Eosinophils % Eosinophils % (Manual) 2 Basophils % Metamyelocytes % (manual) 1 H Myelocytes % (Manual) 4 H Plasma Cells % (manual) 1 Nucleated Red Blood Cells % 0.0 Neutrophils # Neutrophils # (Manual) 8.2 H Band Neutrophils # 0.2 Absolute Lymphocytes (Manual) 0.5 L Lymphocytes # Reactive Lymphocytes # 0.2 H Monocytes # Absolute Monocytes (Manual) 0.7 Eosinophils # Basophils # Metamyelocytes # 0.1 H Myelocytes # 0.4 H Plasma Cells # (manual) 0.1 H Nucleated Red Blood Cells # Platelet Estimate NORMAL Polychromasia 1+ Poikilocytosis 1+ Ovalocytes 1+ Prothrombin Time 12.9 # Prothrombin Time Ratio 1.0 INR International Normalized Ratio 0.97 Activated Partial Thromboplast Time 27.8 Sodium Level 135 Potassium Level 3.2 L Chloride Level 104 Carbon Dioxide Level 26 Anion Gap 8 Blood Urea Nitrogen 11 Creatinine 1.04 H Glucose Level 87 Calcium Level 7.7 L Phosphorus Level 3.1 Magnesium Level 2.0 B-Type Natriuretic Peptide 3370 H Medications Medications Current Medications Ondansetron HCl (Zofran Inj) 4 mg Q6H PRN IV NAUSEA AND/OR VOMITING Last administered on 05/26/17 08:34; Admin Dose 4 MG; Start 05/21/17 at 21:00 Hydromorphone HCl (Dilaudid) 0.5 mg Q2 PRN IV PAIN Last administered on 08:34; Admin Dose 0.5 MG; Start 05/23/17 at 18:30 Hydromorphone HCl (Dilaudid) 1 mg Q2 PRN IV PAIN Last administered on 11:27; Admin Dose 1 MG; Start 05/23/17 at 18:30 Docusate Sodium (Colace) 100 mg BID PRN PO CONSTIPATION; Start 05/23/17 at 18: 30 Bisacodyl (Dulcolax Supp) 10 mg BID PRN [place] CONSTIPATION; Start 05/23/17 at 18: 30 Sodium Biphosphate/ Sodium Phosphate (Fleet Enema) 133 ml BID PRN [place] CONSTIPATION; Start 05/23/17 at 18:30 Enoxaparin Sodium (Lovenox) 40 mg DAILY SC Last administered on 05/28/17 09: 05; Admin Dose 40 MG; Start 05/24/17 at 09:00 Potassium Chloride (Potassium Chloride Pwd/Soln) 40 meq BID PO Last administered on 05/28/17 10:31; Admin Dose 40 MEQ; Start 05/28/17 at 10:00; Stop 05/29/17 at 00:00 WARREN RICHARDS MD May 28, 2017 15:56
[2017-05-29 00:04] VITALS: BP 118/63; RESP 20
[2017-05-29 04:10] VITALS: BP 138/67; RESP 20
[2017-05-29] MEDS: FUROSEMIDE 20 MG INJ IV SCH (07:00)
[2017-05-29 08:30] VITALS: BP 120/58; RESP 18
[2017-05-29 08:33] LABS: ABNORMAL IP MESSAGE 1; HEMOGLOBIN 10.5 g/dl (12.0-16.0); MEAN CORPUSCULAR VOLUME 94.3 fl (82.0-101.0); MEAN PLATELET VOLUME 9.7 fl (7.4-10.4); PLATELET COUNT 230 10^3/UL (140-415); RED BLOOD COUNT 3.18 10^6/ul (4.20-5.40); RED CELL DISTRIBUTION WIDTH 13.5 % (11.5-14.5); WHITE BLOOD COUNT 11.1 10^3/ul (4.8-10.8)
[2017-05-29 08:39] LABS: POSITIVE DIFF @See below
[2017-05-29] MEDS: ENOXAPARIN 40 MG/0.4 ML SYG SC SCH (08:39)
[2017-05-29 09:06] LABS: INR 1.01; PROTIME 13.3 Sec (12.2-14.2)
[2017-05-29 09:07] LABS: PARTIAL THROMBOPLASTIN TIME 28.8 Sec (25.0-35.0)
[2017-05-29 09:28] LABS: CALCIUM 7.6 mg/dl (8.4-10.2); CREATININE 1.01 mg/dl (0.44-1.00); MAGNESIUM 1.8 mg/dl (1.7-2.5); PHOSPHORUS 3.2 mg/dl (2.5-4.9); POTASSIUM 4.2 mmol/L (3.5-5.1)
[2017-05-29 10:09] LABS: ANISOCYTOSIS 1+ (0-0); EOSINOPHILS % (M) 1 % (0-7); MONOCYTES % (M) 8 % (0-11); PLATELET ESTIMATE NORMAL; POIKILOCYTOSIS 1+ (0-0); POLYCHROMASIA 3+ (0-0); REACTIVE LYMPHOCYTES% (M) 2 % (0-0)
--- NOTE | 2017-05-29 11:30 | CONS ---
Date/Time of Note Date/Time of Note DATE: 05/29/17 TIME: 11:28 Assessment/Plan Assessment/Plan Chief Complaint/Hosp Course Acute diastolic heart failure: EF preserved. Pt was net positive 17L since admission which is likely accurate as she had a price. Albumin also very low which is contributing. Much improved with diuresis. Close to euvolemic. Sinus tachycardia: Compensatory due to above. Resolved with diuresis SBO/incarcerated hernia s/p surgical repair 05/23 Sepsis: on antibiotics -decrease to lasix 20mg PO daily. May not need it correction Problems: Consultation Date/Type/Reason Admit Date/Time May 21, 2017 at 20:05 Initial Consult Date 05/26/17 Type of Consultation: Cardiology Referring Provider: WARREN RICHARDS MD 24 HR Interval Summary Free Text/Dictation No o/n events. Being transferred to med/surg Exam/Review of Systems Vital Signs Vitals Vital Signs Date Time Temp Pulse Resp B/P Pulse Ox O2 Delivery O2 Flow Rate FiO2 05/29/17 08:30 98.4 89 18 120/58 97 05/29/17 08:06 2.0 05/27/17 08:28 Nasal Cannula Intake and Output 05/28/17 05/28/17 05/29/17 15:00 23:00 07:00 Intake Total 1240 ml Output Total 1600 ml Balance -360 ml Exam Constitutional: alert, oriented Psych: nl mood/affect, no complaints Head: atraumatic, normocephalic Neck: No jvd Respiratory: crackles/rales (mild), No clear to auscultation Cardiovascular: regular rate and rhythm, No edema, No systolic murmur Gastrointestinal: non-tender, soft Neurological: nl mental status, nl speech Results Result Diagram: 05/29/17 0737 05/29/17 0737 Results 24 hrs Laboratory Tests Test 05/29/17 07:37 White Blood Count 11.1 H Red Blood Count 3.18 L Hemoglobin 10.5 L Hematocrit 30.0 L Mean Corpuscular Volume 94.3 Mean Corpuscular Hemoglobin 33.0 Mean Corpuscular Hemoglobin Concent 35.0 Red Cell Distribution Width 13.5 Platelet Count 230 Mean Platelet Volume 9.7 Neutrophils % Segmented Neutrophils % (Manual) 78 H Band Neutrophils % (Manual) 2 Lymphocytes % Lymphocytes % (Manual) 9 L Reactive Lymphocytes % (Manual) 2 H Monocytes % Monocytes % (Manual) 8 Eosinophils % Eosinophils % (Manual) 1 Basophils % Nucleated Red Blood Cells % 0.0 Neutrophils # Neutrophils # (Manual) 8.7 H Band Neutrophils # 0.2 Absolute Lymphocytes (Manual) 0.9 Lymphocytes # Reactive Lymphocytes # 0.2 H Monocytes # Absolute Monocytes (Manual) 0.8 Eosinophils # Basophils # Nucleated Red Blood Cells # Platelet Estimate NORMAL Polychromasia 3+ Poikilocytosis 1+ Anisocytosis 1+ Prothrombin Time 13.3 Prothrombin Time Ratio 1.0 INR International Normalized Ratio 1.01 Activated Partial Thromboplast Time 28.8 Sodium Level 137 Potassium Level 4.2 Chloride Level 104 Carbon Dioxide Level 27 Anion Gap 10 Blood Urea Nitrogen 9 Creatinine 1.01 H Glucose Level 85 Calcium Level 7.6 L Phosphorus Level 3.2 Magnesium Level 1.8 B-Type Natriuretic Peptide 3110 H Medications Medications Current Medications Ondansetron HCl (Zofran Inj) 4 mg Q6H PRN IV NAUSEA AND/OR VOMITING Last administered on 05/26/17 08:34; Admin Dose 4 MG; Start 05/21/17 at 21:00 Hydromorphone HCl (Dilaudid) 0.5 mg Q2 PRN IV PAIN Last administered on 08:34; Admin Dose 0.5 MG; Start 05/23/17 at 18:30 Hydromorphone HCl (Dilaudid) 1 mg Q2 PRN IV PAIN Last administered on 11:27; Admin Dose 1 MG; Start 05/23/17 at 18:30 Docusate Sodium (Colace) 100 mg BID PRN PO CONSTIPATION; Start 05/23/17 at 18: 30 Bisacodyl (Dulcolax Supp) 10 mg BID PRN [place] CONSTIPATION; Start 05/23/17 at 18: 30 Sodium Biphosphate/ Sodium Phosphate (Fleet Enema) 133 ml BID PRN [place] CONSTIPATION; Start 05/23/17 at 18:30 Enoxaparin Sodium (Lovenox) 40 mg DAILY SC Last administered on 05/29/17 08: 39; Admin Dose 40 MG; Start 05/24/17 at 09:00 BRUNO TYSON May 29, 2017 11:30
[2017-05-29 11:51] VITALS: BP 134/67; PULSE 87; RESP 18
[2017-05-29 13:23] VITALS: BP 134/63; RESP 20
--- NOTE | 2017-05-29 15:47 | PN ---
Date/Time of Note Date/Time of Note DATE: 05/29/17 TIME: 15:46 Assessment/Plan Lines/Catheters IV Catheter Type (from [facility]): Saline Lock Orta in Place (from [facility]): No Assessment/Plan Assessment/Plan [facility] Progress Note Date of Service: 05/29/17 Location of Service: [address] Today's Assessment & Plan: Overall stable and seems to be improving. No major cardiopulmonary issue; still with high BNP indicating possible light fluid overload. Can likely benefit from further gentle diuresis. Abdomen remains benign with signs of resolution of post operative paralytic ileus. No indications of major postoperative complications or wound problems. No indication for acute surgical intervention. Awaiting further return of bowel function. With above assessment, I've recommended the following for today: 1. Continue current cares 2. Continue advancing diet 3. Careful monitoring of vital signs 4. Strict I's and O's 5. Labs in a.m. 6. Increase activity 7. Incentive spirometry 8. May need help with social work and case management for possible placement if adequate resources do not exist to discharge home 9. Cont gentle diuresis 10. Cont PT Thank you again for your great care of this very pleasant patient and wonderful family. If there are any questions, please feel free to call me at [phone]. Nature of presenting problem: High severity Please note that, given the multiple number of diagnoses or management options, moderate amount and/or complexity of data needed to be reviewed, and high risk of complications and/or morbidity or mortality, this qualifies as moderate complexity type of decision-making. Disclaimers: 1. Inadvertent spelling and grammatical errors are likely due to electronic health record (EHR)/dictation software used and do not reflect on the quality of delivered patient care. 2. The electronic timestamp recorded on this note does not necessarily reflect the actual date and time of the visit or the service. 3. Portions of this note may have been created through electronic templates and computer algorithms that might bring in information either from the system or from other physicians and providers. Please note that such information may or may not contain errors, the occurrence of which are outside of my control. In general (but not always) this happens either in the beginning or at the end of the note. The portion of the note that I have created are generally done in 1 continuous block of text, flanked at the beginning and at the end by " ", and entered into one field in the EHR. 4. There may be other unanticipated errors in the note that are outside of my control. I can only attest to the portions of the note that I have created. Updated Clinical Summary: A very-pleasant 72-year-old lady with a few comorbidities including multiple operations in the past, presenting with a picture consistent with high-grade small bowel obstruction. Comorbidities: 1. Small bowel obstruction with bowel strangulation within pelvis internal hernia, bowel gangrene with perforation (localized). S/p an otherwise uncomplicated laparoscopic, hand-assisted reduction of internal hernia with partial enterectomy (terminal ileum, 10 cm) with primary anastomosis, repair of several serosal tears (all outer serosa and no full-thickness enterotomies; approximately 6 proximal to the area of anastomosis) and abdominal lavage at [facility] 05/23/17 with findings that were consistent with herniation of loop of terminal ileum into prior RAVEN/BSO cavity that had formed remnants of an internal ring and cause bowel strangulation, necrosis and localized perforation. 2. BMI 28.4 3. Hypertension 4. Diverticulosis 5. Surgery for endometriosis 6. RAVEN/BSO 7. Appendectomy (patient mentioned malignancy in the 1970s, but did not have any further details; no recent issues with malignancy, weight loss or other major concerns) 8. Cholelithiasis 9. Albumin 2.7 after resuscitation Subjective: No major events or complaints; no major abd pain and under control with medications; no n/v/d; no reported sob or cp; + bowel activity; + activity; reports still feeling weak Objective: Vitals: See below Exam: GENERAL: On exam, the patient was laying in bed and appeared to be comfortable and in no acute distress. ABDOMEN: Soft, nontender and nondistended. Incisions are clean, dry and intact without any evidence of obvious erythema, edema, discharge, or hernia. There are no peritoneal signs or guarding. SKIN: Skin appears to be pink and feels warm to touch. NEUROLOGIC: Patient is awake, alert, and follows commands appropriately. Exam/Review of Systems Vital Signs Vitals Vital Signs Date Time Temp Pulse Resp B/P Pulse Ox O2 Delivery O2 Flow Rate FiO2 05/29/17 13:23 98.3 84 20 134/63 97 05/29/17 11:51 Room Air 05/29/17 08:06 2.0 Intake and Output 05/28/17 05/28/17 05/29/17 15:00 23:00 07:00 Intake Total 1240 ml Output Total 1600 ml Balance -360 ml Results Result Diagram: 05/29/17 0737 05/29/17 0737 JOSE ENRIQUE GOMEZ M.D. May 29, 2017 15:47
[2017-05-29 19:12] VITALS: BP 116/58; RESP 20
--- NOTE | 2017-05-30 | PN ---
Date/Time of Note Date/Time of Note DATE: 05/29/17 TIME: 23:59 Assessment/Plan VTE Prophylaxis VTE Prophylaxis Intervention: LMWH Lines/Catheters IV Catheter Type (from Nrs): Saline Lock Urinary Cath still in place: No Assessment/Plan Chief Complaint/Hosp Course S- events noted O- vss PE no pallor reg; no mrg ctab bs+ntnd no r r g A/P 1. SBO; stable Rx pain Problems: Exam/Review of Systems Vital Signs Vitals Vital Signs Date Time Temp Pulse Resp B/P Pulse Ox O2 Delivery O2 Flow Rate FiO2 05/29/17 19:12 98.2 87 20 116/58 96 05/29/17 11:51 Room Air 05/29/17 08:06 2.0 Intake and Output 05/28/17 05/28/17 05/29/17 15:00 23:00 07:00 Intake Total 1240 ml Output Total 1600 ml Balance -360 ml Results Result Diagram: 05/29/1737 05/29/17 0737 Results 24 hrs Laboratory Tests Test 05/29/17 07:37 White Blood Count 11.1 H Red Blood Count 3.18 L Hemoglobin 10.5 L Hematocrit 30.0 L Mean Corpuscular Volume 94.3 Mean Corpuscular Hemoglobin 33.0 Mean Corpuscular Hemoglobin Concent 35.0 Red Cell Distribution Width 13.5 Platelet Count 230 Mean Platelet Volume 9.7 Neutrophils % Segmented Neutrophils % (Manual) 78 H Band Neutrophils % (Manual) 2 Lymphocytes % Lymphocytes % (Manual) 9 L Reactive Lymphocytes % (Manual) 2 H Monocytes % Monocytes % (Manual) 8 Eosinophils % Eosinophils % (Manual) 1 Basophils % Nucleated Red Blood Cells % 0.0 Neutrophils # Neutrophils # (Manual) 8.7 H Band Neutrophils # 0.2 Absolute Lymphocytes (Manual) 0.9 Lymphocytes # Reactive Lymphocytes # 0.2 H Monocytes # Absolute Monocytes (Manual) 0.8 Eosinophils # Basophils # Nucleated Red Blood Cells # Platelet Estimate NORMAL Polychromasia 3+ Poikilocytosis 1+ Anisocytosis 1+ Prothrombin Time 13.3 Prothrombin Time Ratio 1.0 INR International Normalized Ratio 1.01 Activated Partial Thromboplast Time 28.8 Sodium Level 137 Potassium Level 4.2 Chloride Level 104 Carbon Dioxide Level 27 Anion Gap 10 Blood Urea Nitrogen 9 Creatinine 1.01 H Glucose Level 85 Calcium Level 7.6 L Phosphorus Level 3.2 Magnesium Level 1.8 B-Type Natriuretic Peptide 3110 H Medications Medications Current Medications Ondansetron HCl (Zofran Inj) 4 mg Q6H PRN IV NAUSEA AND/OR VOMITING Last administered on 05/26/17 08:34; Admin Dose 4 MG; Start 05/21/17 at 21:00 Hydromorphone HCl (Dilaudid) 0.5 mg Q2 PRN IV PAIN Last administered on 08:34; Admin Dose 0.5 MG; Start 05/23/17 at 18:30 Hydromorphone HCl (Dilaudid) 1 mg Q2 PRN IV PAIN Last administered on 11:27; Admin Dose 1 MG; Start 05/23/17 at 18:30 Docusate Sodium (Colace) 100 mg BID PRN PO CONSTIPATION; Start 05/23/17 at 18: 30 Bisacodyl (Dulcolax Supp) 10 mg BID PRN [place] CONSTIPATION; Start 05/23/17 at 18: 30 Sodium Biphosphate/ Sodium Phosphate (Fleet Enema) 133 ml BID PRN [place] CONSTIPATION; Start 05/23/17 at 18:30 Enoxaparin Sodium (Lovenox) 40 mg DAILY SC Last administered on 05/29/17 08: 39; Admin Dose 40 MG; Start 05/24/17 at 09:00 Furosemide (Lasix) 20 mg DAILY PO ; Start 05/30/17 at 09:00 DALJIT GRIFFIN MD May 30, 2017 00:00
--- NOTE | 2017-05-30 00:03 | PN ---
Date/Time of Note Date/Time of Note DATE: 05/30/17 TIME: 00:00 Assessment/Plan VTE Prophylaxis VTE Prophylaxis Intervention: LMWH Lines/Catheters IV Catheter Type (from Nrs): Saline Lock Urinary Cath still in place: No Assessment/Plan Chief Complaint/Hosp Course S 05/29: events noted 05/30: Mild pain with movement or palpation. No nausea fever dyspnea. Discussed benefits of snf with her. O- vss PE no pallor reg; no mrg ctab bs+nt nd no r r g stable C/D/I mild edema A/P 1. 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 Sp lap hand-assisted reduction of internal hernia w partial enterectomy and lavage: necrosis and localized perforation. -They will advance diet activity. Disposition to sniff versus home tomorrow with home health/safety/PT/wound care. 2. Post OP Ileus 3. Hypertension/ DD 4. Diverticulosis 5. Ftt; snf? Problems: Exam/Review of Systems Vital Signs Vitals Vital Signs Date Time Temp Pulse Resp B/P Pulse Ox O2 Delivery O2 Flow Rate FiO2 05/29/17 19:12 98.2 87 20 116/58 96 05/29/17 11:51 Room Air 05/29/17 08:06 2.0 Intake and Output 05/29/17 05/29/17 05/30/17 15:00 23:00 07:00 Intake Total 1080 ml Output Total 950 ml Balance 130 ml Results Result Diagram: 05/29/17 0737 05/29/17 0737 Results 24 hrs Laboratory Tests Test 05/29/17 07:37 White Blood Count 11.1 H Red Blood Count 3.18 L Hemoglobin 10.5 L Hematocrit 30.0 L Mean Corpuscular Volume 94.3 Mean Corpuscular Hemoglobin 33.0 Mean Corpuscular Hemoglobin Concent 35.0 Red Cell Distribution Width 13.5 Platelet Count 230 Mean Platelet Volume 9.7 Neutrophils % Segmented Neutrophils % (Manual) 78 H Band Neutrophils % (Manual) 2 Lymphocytes % Lymphocytes % (Manual) 9 L Reactive Lymphocytes % (Manual) 2 H Monocytes % Monocytes % (Manual) 8 Eosinophils % Eosinophils % (Manual) 1 Basophils % Nucleated Red Blood Cells % 0.0 Neutrophils # Neutrophils # (Manual) 8.7 H Band Neutrophils # 0.2 Absolute Lymphocytes (Manual) 0.9 Lymphocytes # Reactive Lymphocytes # 0.2 H Monocytes # Absolute Monocytes (Manual) 0.8 Eosinophils # Basophils # Nucleated Red Blood Cells # Platelet Estimate NORMAL Polychromasia 3+ Poikilocytosis 1+ Anisocytosis 1+ Prothrombin Time 13.3 Prothrombin Time Ratio 1.0 INR International Normalized Ratio 1.01 Activated Partial Thromboplast Time 28.8 Sodium Level 137 Potassium Level 4.2 Chloride Level 104 Carbon Dioxide Level 27 Anion Gap 10 Blood Urea Nitrogen 9 Creatinine 1.01 H Glucose Level 85 Calcium Level 7.6 L Phosphorus Level 3.2 Magnesium Level 1.8 B-Type Natriuretic Peptide 3110 H Medications Medications Current Medications Ondansetron HCl (Zofran Inj) 4 mg Q6H PRN IV NAUSEA AND/OR VOMITING Last administered on 05/26/17 08:34; Admin Dose 4 MG; Start 05/21/17 at 21:00 Hydromorphone HCl (Dilaudid) 0.5 mg Q2 PRN IV PAIN Last administered on 08:34; Admin Dose 0.5 MG; Start 05/23/17 at 18:30 Hydromorphone HCl (Dilaudid) 1 mg Q2 PRN IV PAIN Last administered on 11:27; Admin Dose 1 MG; Start 05/23/17 at 18:30 Docusate Sodium (Colace) 100 mg BID PRN PO CONSTIPATION; Start 05/23/17 at 18: 30 Bisacodyl (Dulcolax Supp) 10 mg BID PRN [place] CONSTIPATION; Start 05/23/17 at 18: 30 Sodium Biphosphate/ Sodium Phosphate (Fleet Enema) 133 ml BID PRN [place] CONSTIPATION; Start 05/23/17 at 18:30 Enoxaparin Sodium (Lovenox) 40 mg DAILY SC Last administered on 05/29/17 08: 39; Admin Dose 40 MG; Start 05/24/17 at 09:00 Furosemide (Lasix) 20 mg DAILY PO ; Start 05/30/17 at 09:00 DALJIT GRIFFIN MD May 30, 2017 00:03
[2017-05-30 02:00] VITALS: BP 128/60; RESP 20
[2017-05-30 06:05] LABS: BASOPHILS % 0.3 % (0.0-2.0); EOSINOPHILS # 0.1 10^3/ul (0.0-0.5); EOSINOPHILS % 1.1 % (0.0-7.0); HEMATOCRIT 31.6 % (37.0-47.0); HEMOGLOBIN 11.1 g/dl (12.0-16.0); LYMPHOCYTES # 1.3 10^3/ul (0.8-2.9); MEAN CORPUSCULAR HEMOGLOBIN 33.1 pg (29.0-33.0); MEAN CORPUSCULAR HGB CONC 35.1 g/dl (32.0-37.0); MEAN CORPUSCULAR VOLUME 94.3 fl (82.0-101.0); MEAN PLATELET VOLUME 9.6 fl (7.4-10.4); MONOCYTE # 1.1 10^3/ul (0.3-0.9); MONOCYTES % 8.3 % (0.0-11.0); NEUTROPHIL # 9.9 10^3/ul (1.6-7.5); PLATELET COUNT 265 10^3/UL (140-415); RED BLOOD COUNT 3.35 10^6/ul (4.20-5.40); RED CELL DISTRIBUTION WIDTH 13.8 % (11.5-14.5)
[2017-05-30 06:40] LABS: PROTIME 13.2 Sec (12.2-14.2)
[2017-05-30 06:41] LABS: PARTIAL THROMBOPLASTIN TIME 26.5 Sec (25.0-35.0)
[2017-05-30 07:08] LABS: ALBUMIN 2.4 g/dl (3.3-4.9); ALBUMIN/GLOBULIN RATIO 0.88; BILIRUBIN,INDIRECT 0.5 mg/dl (0-1.1); BILIRUBIN,TOTAL 0.5 mg/dl (0.2-1.3); CALCIUM 7.6 mg/dl (8.4-10.2); CREATININE 0.96 mg/dl (0.44-1.00); MAGNESIUM 1.8 mg/dl (1.7-2.5); PHOSPHORUS 3.8 mg/dl (2.5-4.9); POTASSIUM 3.6 mmol/L (3.5-5.1); TOTAL PROTEIN 5.1 g/dl (6.1-8.1)
[2017-05-30 07:28] VITALS: BP 130/65; RESP 19
[2017-05-30] MEDS: FUROSEMIDE 20 MG TAB PO SCH (09:35)
[2017-05-30] MEDS: ENOXAPARIN 40 MG/0.4 ML SYG SC SCH (10:08)
--- NOTE | 2017-05-30 13:12 | CONS ---
Date/Time of Note Date/Time of Note DATE: 05/30/17 TIME: 13:11 Assessment/Plan Assessment/Plan Chief Complaint/Hosp Course Acute diastolic heart failure: EF preserved. Pt was net positive 17L since admission which is likely accurate as she had a price. Albumin also very low which is contributing. Much improved with diuresis. Close to euvolemic. Sinus tachycardia: Compensatory due to above. Resolved with diuresis SBO/incarcerated hernia s/p surgical repair 05/23 Sepsis: on antibiotics - lasix 20mg PO daily. May not need it fci Problems: Consultation Date/Type/Reason Admit Date/Time May 21, 2017 at 20:05 Initial Consult Date 05/26/17 Type of Consultation: Cardiology Referring Provider: WARREN RICHARDS MD 24 HR Interval Summary Free Text/Dictation Doing well. No complaints. Ambulating with PT Exam/Review of Systems Vital Signs Vitals Vital Signs Date Time Temp Pulse Resp B/P Pulse Ox O2 Delivery O2 Flow Rate FiO2 05/30/17 07:28 98.3 77 19 130/65 93 05/29/17 11:51 Room Air 05/29/17 08:06 2.0 Intake and Output 05/29/17 05/29/17 05/30/17 14:59 22:59 06:59 Intake Total 1080 ml Output Total 950 ml Balance 130 ml Exam Constitutional: alert, oriented Psych: nl mood/affect, no complaints Head: atraumatic, normocephalic Neck: supple, No jvd Respiratory: crackles/rales, No clear to auscultation (mild crackles ), No diminished breath sounds Cardiovascular: regular rate and rhythm, No edema, No systolic murmur Gastrointestinal: non-tender, soft Musculoskeletal: nl extremities to inspection Extremities: normal pulses Neurological: nl mental status, nl speech Results Result Diagram: 05/30/1737 05/30/17 0537 Results 24 hrs Laboratory Tests Test 05/30/17 05:37 White Blood Count 13.0 H Red Blood Count 3.35 L Hemoglobin 11.1 L Hematocrit 31.6 L Mean Corpuscular Volume 94.3 Mean Corpuscular Hemoglobin 33.1 H Mean Corpuscular Hemoglobin Concent 35.1 Red Cell Distribution Width 13.8 Platelet Count 265 Mean Platelet Volume 9.6 Neutrophils % 76.0 Lymphocytes % 10.0 L Monocytes % 8.3 Eosinophils % 1.1 Basophils % 0.3 Nucleated Red Blood Cells % 0.0 Neutrophils # 9.9 H Lymphocytes # 1.3 Monocytes # 1.1 H Eosinophils # 0.1 Basophils # 0.0 Nucleated Red Blood Cells # 0.0 Prothrombin Time 13.2 Prothrombin Time Ratio 1.0 INR International Normalized Ratio 1.00 Activated Partial Thromboplast Time 26.5 Sodium Level 137 Potassium Level 3.6 Chloride Level 103 Carbon Dioxide Level 29 Anion Gap 9 Blood Urea Nitrogen 7 Creatinine 0.96 Glucose Level 104 Calcium Level 7.6 L Phosphorus Level 3.8 Magnesium Level 1.8 Total Bilirubin 0.5 Direct Bilirubin 0.00 Indirect Bilirubin 0.5 Aspartate Amino Transf (AST/SGOT) 91 H Alanine Aminotransferase (ALT/SGPT) 43 Alkaline Phosphatase 226 H B-Type Natriuretic Peptide 3710 H Total Protein 5.1 L Albumin 2.4 L Globulin 2.70 Albumin/Globulin Ratio 0.88 Medications Medications Current Medications Ondansetron HCl (Zofran Inj) 4 mg Q6H PRN IV NAUSEA AND/OR VOMITING Last administered on 05/26/17 08:34; Admin Dose 4 MG; Start 05/21/17 at 21:00 Hydromorphone HCl (Dilaudid) 0.5 mg Q2 PRN IV PAIN Last administered on 08:34; Admin Dose 0.5 MG; Start 05/23/17 at 18:30 Hydromorphone HCl (Dilaudid) 1 mg Q2 PRN IV PAIN Last administered on 11:27; Admin Dose 1 MG; Start 05/23/17 at 18:30 Docusate Sodium (Colace) 100 mg BID PRN PO CONSTIPATION; Start 05/23/17 at 18: 30 Bisacodyl (Dulcolax Supp) 10 mg BID PRN [place] CONSTIPATION; Start 05/23/17 at 18: 30 Sodium Biphosphate/ Sodium Phosphate (Fleet Enema) 133 ml BID PRN [place] CONSTIPATION; Start 05/23/17 at 18:30 Enoxaparin Sodium (Lovenox) 40 mg DAILY SC Last administered on 05/30/17 10: 08; Admin Dose 40 MG; Start 05/24/17 at 09:00 Furosemide (Lasix) 20 mg DAILY PO Last administered on 05/30/17 09:35; Admin Dose 20 MG; Start 05/30/17 at 09:00 BRUNO TYSON May 30, 2017 13:12
--- NOTE | 2017-05-30 13:26 | PN ---
Date/Time of Note Date/Time of Note DATE: 05/30/17 TIME: 13:22 Assessment/Plan Lines/Catheters IV Catheter Type (from Nrs): Saline Lock Orta in Place (from Nrs): No Assessment/Plan Assessment/Plan [facility] Progress Note Date of Service: 05/30/17 Location of Service: [address] Today's Assessment & Plan: Overall stable and seems to be improving. No major cardiopulmonary issue; no indications of major postoperative complications or wound problems. No indication for acute surgical intervention. I am comfortable at this morning that the patient may discharge from the hospital, but I recommended that she considers going to a SNF. With above assessment, I've recommended the following for today: 1. ok to d/c to SNF 2. Follow with me in my office in 2-3 weeks 3. Please include the following the patient's discharge instructions: "Please call [phone] if any of fever, nausea, vomiting, discharge from wound, wound redness, increase or sudden pain, blood in stool or vomit, or any other unusual signs or symptoms. Also, please call the same number in a few days to schedule an appointment for your follow up visit. Patient may remove dressings tomorrow. Showers OK starting tomorrow. No swimming , hot tub or bath for 2 weeks. No lifting more than 25 lbs for 8 weeks." Thank you again for your great care of this very pleasant patient and wonderful family. If there are any questions, please feel free to call me at [phone]. Nature of presenting problem: High severity Please note that, given the multiple number of diagnoses or management options, moderate amount and/or complexity of data needed to be reviewed, and high risk of complications and/or morbidity or mortality, this qualifies as moderate complexity type of decision-making. Disclaimers: 1. Inadvertent spelling and grammatical errors are likely due to electronic health record (EHR)/dictation software used and do not reflect on the quality of delivered patient care. 2. The electronic timestamp recorded on this note does not necessarily reflect the actual date and time of the visit or the service. 3. Portions of this note may have been created through electronic templates and computer algorithms that might bring in information either from the system or from other physicians and providers. Please note that such information may or may not contain errors, the occurrence of which are outside of my control. In general (but not always) this happens either in the beginning or at the end of the note. The portion of the note that I have created are generally done in 1 continuous block of text, flanked at the beginning and at the end by " ", and entered into one field in the EHR. 4. There may be other unanticipated errors in the note that are outside of my control. I can only attest to the portions of the note that I have created. Updated Clinical Summary: A very-pleasant 72-year-old lady with a few comorbidities including multiple operations in the past, presenting with a picture consistent with high-grade small bowel obstruction. Comorbidities: 1. Small bowel obstruction with bowel strangulation within pelvis internal hernia, bowel gangrene with perforation (localized). S/p an otherwise uncomplicated laparoscopic, hand-assisted reduction of internal hernia with partial enterectomy (terminal ileum, 10 cm) with primary anastomosis, repair of several serosal tears (all outer serosa and no full-thickness enterotomies; approximately 6 proximal to the area of anastomosis) and abdominal lavage at [facility] 05/23/17 with findings that were consistent with herniation of loop of terminal ileum into prior RAVEN/BSO cavity that had formed remnants of an internal ring and cause bowel strangulation, necrosis and localized perforation. 2. BMI 28.4 3. Hypertension 4. Diverticulosis 5. Surgery for endometriosis 6. RAVEN/BSO 7. Appendectomy (patient mentioned malignancy in the 1970s, but did not have any further details; no recent issues with malignancy, weight loss or other major concerns) 8. Cholelithiasis 9. Albumin 2.7 after resuscitation Subjective: No major events or complaints; no major abd pain and under control with medications; no n/v/d; no reported sob or cp; + bowel activity; + activity; reports feeling less weak Objective: Vitals: See below Exam: GENERAL: On exam, the patient was laying in bed and appeared to be comfortable and in no acute distress. ABDOMEN: Soft, nontender and nondistended. Incisions are clean, dry and intact without any evidence of obvious erythema, edema, discharge, or hernia. There are no peritoneal signs or guarding. SKIN: Skin appears to be pink and feels warm to touch. NEUROLOGIC: Patient is awake, alert, and follows commands appropriately. Exam/Review of Systems Vital Signs Vitals Vital Signs Date Time Temp Pulse Resp B/P Pulse Ox O2 Delivery O2 Flow Rate FiO2 05/30/17 07:28 98.3 77 19 130/65 93 05/29/17 11:51 Room Air 05/29/17 08:06 2.0 Intake and Output 05/29/17 05/29/17 05/30/17 15:00 23:00 07:00 Intake Total 1080 ml Output Total 950 ml Balance 130 ml Results Result Diagram: 05/30/17 0537 05/30/17 0537 JOSE ENRIQUE GOMEZ M.D. May 30, 2017 13:26
[2017-05-30] MEDS ORDERED: HYDROCODONE/APAP (7.5/325) TAB PO PRN (14:00)
[2017-05-30 14:35] VITALS: BP 129/77; RESP 14
[2017-05-30] MEDS: FAMOTIDINE 20 MG TAB PO SCH (15:30)
[2017-05-30 19:54] VITALS: BP 139/64; RESP 14
[2017-05-30] MEDS: DOCUSATE SODIUM 100 MG CAP PO SCH (21:00)
[2017-05-31 02:05] VITALS: BP 131/61; RESP 14
[2017-05-31 06:14] LABS: BASOPHILS % 0.2 % (0.0-2.0); EOSINOPHILS # 0.2 10^3/ul (0.0-0.5); EOSINOPHILS % 1.3 % (0.0-7.0); HEMOGLOBIN 10.7 g/dl (12.0-16.0); LYMPHOCYTES # 1.1 10^3/ul (0.8-2.9); LYMPHOCYTES % 8.3 % (15.0-51.0); MEAN CORPUSCULAR HGB CONC 34.5 g/dl (32.0-37.0); MEAN CORPUSCULAR VOLUME 95.7 fl (82.0-101.0); MEAN PLATELET VOLUME 9.7 fl (7.4-10.4); MONOCYTES % 7.7 % (0.0-11.0); NEUTROPHIL # 10.4 10^3/ul (1.6-7.5); NEUTROPHILS % 80.3 % (39.0-77.0); PLATELET COUNT 297 10^3/UL (140-415); RED BLOOD COUNT 3.24 10^6/ul (4.20-5.40); RED CELL DISTRIBUTION WIDTH 13.8 % (11.5-14.5)
[2017-05-31 07:17] LABS: ALBUMIN 2.4 g/dl (3.3-4.9); ALBUMIN/GLOBULIN RATIO 0.88; BILIRUBIN,INDIRECT 0.4 mg/dl (0-1.1); BILIRUBIN,TOTAL 0.4 mg/dl (0.2-1.3); CALCIUM 7.4 mg/dl (8.4-10.2); CREATININE 0.82 mg/dl (0.44-1.00); MAGNESIUM 1.6 mg/dl (1.7-2.5); PHOSPHORUS 3.9 mg/dl (2.5-4.9); POTASSIUM 3.1 mmol/L (3.5-5.1); TOTAL PROTEIN 5.1 g/dl (6.1-8.1)
[2017-05-31 07:40] VITALS: BP 132/62; RESP 16
[2017-05-31] MEDS: FUROSEMIDE 20 MG TAB PO SCH (08:47)
[2017-05-31] MEDS: FAMOTIDINE 20 MG TAB PO SCH (08:48)
[2017-05-31] MEDS: ENOXAPARIN 40 MG/0.4 ML SYG SC SCH (08:58)
[2017-05-31] MEDS ORDERED: MAGNESIUM SULFATE 4 GM/100 ML 100 ML IVPB ONE (14:30)
[2017-05-31] MEDS ORDERED: POTASSIUM CHLORIDE 20 MEQ POWDER FOR ORAL SOLN PO ONE ×2 (14:30→15:30)
--- NOTE | 2017-05-31 14:37 | PN ---
Date/Time of Note Date/Time of Note DATE: 05/31/17 TIME: 14:36 Assessment/Plan Lines/Catheters IV Catheter Type (from Nrs): Saline Lock Orta in Place (from Nrs): No Assessment/Plan Assessment/Plan [facility] Progress Note Date of Service: 05/31/17 Location of Service: [address] Today's Assessment & Plan: Overall stable and improving. No major cardiopulmonary issue; no indications of major postoperative complications or wound problems. No indication for acute surgical intervention. Patient may discharge from the hospital from my standpoint, but I recommended that she considers going to a SNF. With above assessment, I've recommended the following for today: 1. ok to d/c to SNF 2. Follow with me in my office in 2-3 weeks 3. Please include the following the patient's discharge instructions: "Please call [phone] if any of fever, nausea, vomiting, discharge from wound, wound redness, increase or sudden pain, blood in stool or vomit, or any other unusual signs or symptoms. Also, please call the same number in a few days to schedule an appointment for your follow up visit. Patient may remove dressings tomorrow. Showers OK starting tomorrow. No swimming , hot tub or bath for 2 weeks. No lifting more than 25 lbs for 8 weeks." Thank you again for your great care of this very pleasant patient and wonderful family. If there are any questions, please feel free to call me at [phone]. Nature of presenting problem: High severity Please note that, given the multiple number of diagnoses or management options, moderate amount and/or complexity of data needed to be reviewed, and high risk of complications and/or morbidity or mortality, this qualifies as moderate complexity type of decision-making. Disclaimers: 1. Inadvertent spelling and grammatical errors are likely due to electronic health record (EHR)/dictation software used and do not reflect on the quality of delivered patient care. 2. The electronic timestamp recorded on this note does not necessarily reflect the actual date and time of the visit or the service. 3. Portions of this note may have been created through electronic templates and computer algorithms that might bring in information either from the system or from other physicians and providers. Please note that such information may or may not contain errors, the occurrence of which are outside of my control. In general (but not always) this happens either in the beginning or at the end of the note. The portion of the note that I have created are generally done in 1 continuous block of text, flanked at the beginning and at the end by " ", and entered into one field in the EHR. 4. There may be other unanticipated errors in the note that are outside of my control. I can only attest to the portions of the note that I have created. Updated Clinical Summary: A very-pleasant 72-year-old lady with a few comorbidities including multiple operations in the past, presenting with a picture consistent with high-grade small bowel obstruction. Comorbidities: 1. Small bowel obstruction with bowel strangulation within pelvis internal hernia, bowel gangrene with perforation (localized). S/p an otherwise uncomplicated laparoscopic, hand-assisted reduction of internal hernia with partial enterectomy (terminal ileum, 10 cm) with primary anastomosis, repair of several serosal tears (all outer serosa and no full-thickness enterotomies; approximately 6 proximal to the area of anastomosis) and abdominal lavage at [facility] 05/23/17 with findings that were consistent with herniation of loop of terminal ileum into prior RAVEN/BSO cavity that had formed remnants of an internal ring and cause bowel strangulation, necrosis and localized perforation. 2. BMI 28.4 3. Hypertension 4. Diverticulosis 5. Surgery for endometriosis 6. RAVEN/BSO 7. Appendectomy (patient mentioned malignancy in the 1970s, but did not have any further details; no recent issues with malignancy, weight loss or other major concerns) 8. Cholelithiasis 9. Albumin 2.7 after resuscitation Subjective: No major events or complaints; no major abd pain and under control with medications; some right-sided breast and chest wall pain; no n/v/d; no reported sob or cp; + bowel activity; + activity Objective: Vitals: See below Exam: GENERAL: On exam, the patient was laying in bed and appeared to be comfortable and in no acute distress. ABDOMEN: Soft, nontender and nondistended. Incisions are clean, dry and intact without any evidence of obvious erythema, edema, discharge, or hernia. There are no peritoneal signs or guarding. SKIN: Skin appears to be pink and feels warm to touch. NEUROLOGIC: Patient is awake, alert, and follows commands appropriately. Exam/Review of Systems Vital Signs Vitals Vital Signs Date Time Temp Pulse Resp B/P Pulse Ox O2 Delivery O2 Flow Rate FiO2 05/31/17 07:40 97.7 80 16 132/62 95 05/29/17 11:51 Room Air 05/29/17 08:06 2.0 Intake and Output 05/30/17 05/30/17 05/31/17 15:00 23:00 07:00 Intake Total 1700 ml 1760 ml Output Total 1050 ml Balance 1700 ml 710 ml Results Result Diagram: 05/31/17 0542 05/31/17 0542 JOSE ENRIQUE GOMEZ M.D. May 31, 2017 14:37
--- NOTE | 2017-05-31 14:51 | CONS ---
Date/Time of Note Date/Time of Note DATE: 05/31/17 TIME: 14:50 Assessment/Plan Assessment/Plan Chief Complaint/Hosp Course Acute diastolic heart failure: EF preserved. Pt was net positive 17L since admission which is likely accurate as she had a price. Albumin also very low which was contributing. Now euvolemic. Sinus tachycardia: Compensatory due to above. Resolved with diuresis SBO/incarcerated hernia s/p surgical repair 05/23 Sepsis: on antibiotics - lasix 20mg PO daily. May not need it skilled nursing. Can be addressed as outpt -ok for d/c from my perspective Problems: Consultation Date/Type/Reason Admit Date/Time May 21, 2017 at 20:05 Initial Consult Date 05/26/17 Type of Consultation: Cardiology Referring Provider: WARREN RICHARDS MD 24 HR Interval Summary Free Text/Dictation No o/n events. Complains of right chest wall pain with deep inspiration Exam/Review of Systems Vital Signs Vitals Vital Signs Date Time Temp Pulse Resp B/P Pulse Ox O2 Delivery O2 Flow Rate FiO2 05/31/17 07:40 97.7 80 16 132/62 95 05/29/17 11:51 Room Air 05/29/17 08:06 2.0 Intake and Output 05/30/17 05/30/17 05/31/17 15:00 23:00 07:00 Intake Total 1700 ml 1760 ml Output Total 1050 ml Balance 1700 ml 710 ml Exam Constitutional: alert, oriented Psych: nl mood/affect, no complaints Head: atraumatic, normocephalic Eyes: nl conjunctiva ENMT: nl external ears & nose Neck: supple, No jvd Respiratory: clear to auscultation, diminished breath sounds, No crackles/rales Cardiovascular: regular rate and rhythm, systolic murmur (2/6 KYAW), No edema Gastrointestinal: non-tender, soft Neurological: nl mental status, nl speech Results Result Diagram: 05/31/1742 05/31/17 0542 Results 24 hrs Laboratory Tests Test 05/31/17 05:42 White Blood Count 13.0 H Red Blood Count 3.24 L Hemoglobin 10.7 L Hematocrit 31.0 L Mean Corpuscular Volume 95.7 Mean Corpuscular Hemoglobin 33.0 Mean Corpuscular Hemoglobin Concent 34.5 Red Cell Distribution Width 13.8 Platelet Count 297 Mean Platelet Volume 9.7 Neutrophils % 80.3 H Lymphocytes % 8.3 L Monocytes % 7.7 Eosinophils % 1.3 Basophils % 0.2 Nucleated Red Blood Cells % 0.0 Neutrophils # 10.4 H Lymphocytes # 1.1 Monocytes # 1.0 H Eosinophils # 0.2 Basophils # 0.0 Nucleated Red Blood Cells # 0.0 Sodium Level 136 Potassium Level 3.1 L Chloride Level 102 Carbon Dioxide Level 28 Anion Gap 9 Blood Urea Nitrogen 5 L Creatinine 0.82 Glucose Level 114 Calcium Level 7.4 L Phosphorus Level 3.9 Magnesium Level 1.6 L Total Bilirubin 0.4 Direct Bilirubin 0.00 Indirect Bilirubin 0.4 Aspartate Amino Transf (AST/SGOT) 77 H Alanine Aminotransferase (ALT/SGPT) 48 Alkaline Phosphatase 195 H Total Protein 5.1 L Albumin 2.4 L Globulin 2.70 Albumin/Globulin Ratio 0.88 Medications Medications Current Medications Ondansetron HCl (Zofran Inj) 4 mg Q6H PRN IV NAUSEA AND/OR VOMITING Last administered on 05/26/17 08:34; Admin Dose 4 MG; Start 05/21/17 at 21:00 Hydromorphone HCl (Dilaudid) 0.5 mg Q2 PRN IV PAIN Last administered on 08:34; Admin Dose 0.5 MG; Start 05/23/17 at 18:30 Hydromorphone HCl (Dilaudid) 1 mg Q2 PRN IV PAIN Last administered on 11:27; Admin Dose 1 MG; Start 05/23/17 at 18:30 Bisacodyl (Dulcolax Supp) 10 mg BID PRN [place] CONSTIPATION; Start 05/23/17 at 18: 30 Sodium Biphosphate/ Sodium Phosphate (Fleet Enema) 133 ml BID PRN [place] CONSTIPATION; Start 05/23/17 at 18:30 Enoxaparin Sodium (Lovenox) 40 mg DAILY SC Last administered on 05/31/17 08: 58; Admin Dose 40 MG; Start 05/24/17 at 09:00 Furosemide (Lasix) 20 mg DAILY PO Last administered on 05/31/17 08:47; Admin Dose 20 MG; Start 05/30/17 at 09:00 Docusate Sodium (Colace) 200 mg HS PO ; Start 05/30/17 at 21:00 Famotidine (Pepcid) 20 mg DAILY PO Last administered on 05/31/17t 08:48; Admin Dose 20 MG; Start 05/30/17 at 14:00 Acetaminophen/ Hydrocodone Bitart 1 tab 1 tab Q4H PRN PO MODERATE PAIN LEVEL 4- 6; Start 05/30/17 at 14:00 Magnesium Sulfate (Magnesium Sulfate 4 Gm/100 ml) 100 ml @ 25 mls/hr ONCE ONCE IVPB ; Start 05/31/17 at 14:30; Stop 05/31/17 at 18:29 BRUNO TYSON May 31, 2017 14:51
--- NOTE | 2017-05-31 15:23 | DS ---
Date/Time of Note Date/Time of Note DATE: 05/31/17 TIME: 15:19 Discharge Summary Admission/Discharge Info Admit Date/Time May 21, 2017 at 20:05 Discharge Date/Time Discharge Diagnosis Bowel obstruction bowel obstruction Patient Condition: Good Consults Zo Mtz Procedures Laparoscopic assisted hernia repair Hx of Present Illness A 2-year-old female admitted with abdominal pain. Found to have a bowel obstruction. Hospital Course Underwent surgery earlier this month. Presently recuperating, stable and fit for discharge. Has madison which can be removed in 1 week. Tolerating diet ambulating. Agrees to go to snf short term to recuperate. S: 05/29: events noted 05/30: Mild pain with movement or palpation. No nausea fever dyspnea. Discussed benefits of snf with her. O- vss PE no pallor reg; no mrg ctab bs+nt nd no r r g stable C/D/I mild edema A/P 1. 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 Sp lap hand-assisted reduction of internal hernia w partial enterectomy and lavage: necrosis and localized perforation. -Advancing diet activity. Dc to snf for PT/wound care. 2. Post OP Ileus 3. Hypertension/ DD 4. Diverticulosis 5. Ftt; snf 6. Leukocytosis 7. Pleurisy? Home Meds No Active Prescriptions or Reported Meds Primary Care Provider Not On Staff Doctor Time spent on discharge: > 30 minutes Pending Labs Laboratory Tests Test 05/31/17 05:42 White Blood Count 13.010^3/ul (4.8-10.8) Red Blood Count 3.2410^6/ul (4.20-5.40) Hemoglobin 10.7g/dl (12.0-16.0) Hematocrit 31.0% (37.0-47.0) Mean Corpuscular Volume 95.7fl (82.0-101.0) Mean Corpuscular Hemoglobin 33.0pg (29.0-33.0) Mean Corpuscular Hemoglobin Concent 34.5g/dl (32.0-37.0) Red Cell Distribution Width 13.8% (11.5-14.5) Platelet Count 98589^3/UL (140-415) Mean Platelet Volume 9.7fl (7.4-10.4) Neutrophils % 80.3% (39.0-77.0) Lymphocytes % 8.3% (15.0-51.0) Monocytes % 7.7% (0.0-11.0) Eosinophils % 1.3% (0.0-7.0) Basophils % 0.2% (0.0-2.0) Nucleated Red Blood Cells % 0.0/100WBC (0.0-0.0) Neutrophils # 10.410^3/ul (1.6-7.5) Lymphocytes # 1.110^3/ul (0.8-2.9) Monocytes # 1.010^3/ul (0.3-0.9) Eosinophils # 0.210^3/ul (0.0-0.5) Basophils # 0.010^3/ul (0.0-0.1) Nucleated Red Blood Cells # 0.010^3/ul (0.0-0.0) Sodium Level 136mmol/L (135-144) Potassium Level 3.1mmol/L (3.5-5.1) Chloride Level 102mmol/L (97-110) Carbon Dioxide Level 28mmol/L (21-31) Anion Gap 9 (8-16) Blood Urea Nitrogen 5mg/dl (7-20) Creatinine 0.82mg/dl (0.44-1.00) Glucose Level 114mg/dl (70-220) Calcium Level 7.4mg/dl (8.4-10.2) Phosphorus Level 3.9mg/dl (2.5-4.9) Magnesium Level 1.6mg/dl (1.7-2.5) Total Bilirubin 0.4mg/dl (0.2-1.3) Direct Bilirubin 0.00mg/dl (0.00-0.20) Indirect Bilirubin 0.4mg/dl (0-1.1) Aspartate Amino Transf (AST/SGOT) 77IU/L (15-46) Alanine Aminotransferase (ALT/SGPT) 48IU/L (13-69) Alkaline Phosphatase 195IU/L (42-121) Total Protein 5.1g/dl (6.1-8.1) Albumin 2.4g/dl (3.3-4.9) Globulin 2.70g/dl (1.3-3.2) Albumin/Globulin Ratio 0.88 CHIKYARAPPA,DALJIT K MD May 31, 2017 15:23
[2017-05-31 15:35] VITALS: BP 122/60; RESP 18
--- NOTE | 2017-05-31 15:44 | PDOCDIS ---
Discharge Instructions DIAGNOSIS Discharge Diagnosis Bowel obstruction bowel obstruction CONDITION Patient Condition: Stable HOME CARE INSTRUCTIONS: Special Diet: regular ACTIVITY: Activity Restrictions: No Restrictions Avoid heavy lifting FOLLOW UP/APPOINTMENTS Follow-up Plan Appt Dr Zo Mi 2DALJIT Pedraza MD May 31, 2017 15:44
[2017-05-31] MEDS ORDERED: ENOX40DI12 SC (15:45)
[2017-05-31] MEDS: MAGNESIUM OXIDE 400 MG TAB PO SCH ×2 (16:54→21:00)
[2017-05-31 19:22] VITALS: BP 123/60; RESP 18
[2017-05-31] MEDS: DOCUSATE SODIUM 100 MG CAP PO SCH (21:00)
== END 2017-06-01 00:20 | DRG 347 ==
LOC: E/R 16:45 → ICU 20:05 → MS4 05-25 10:57 → MS2 05-29 11:25
PROVIDERS: ADMIT Internal Medicine; ATTEND Internal Medicine
PROC: 0DBB4ZZ Excision of Ileum, Percutaneous Endoscopic Approach (ICD-10-PCS; 2017-05-23)
PROC: 0WQF4ZZ Repair Abdominal Wall, Percutaneous Endoscopic Approach (ICD-10-PCS; principal; 2017-05-23 10:30)
DX: K45.1 Other specified abdominal hernia with gangrene (principal); I50.31 Acute diastolic (congestive) heart failure; R18.8 Other ascites; K56.7 Ileus, unspecified; S36.438A Laceration of other part of small intestine, initial encounter; K80.20 Calculus of gallbladder without cholecystitis without obstruction; I11.0 Hypertensive heart disease with heart failure; X58.XXXA Exposure to other specified factors, initial encounter; Z88.6 Allergy status to analgesic agent; Z88.0 Allergy status to penicillin; Z88.8 Allergy status to other drugs, medicaments and biological substances; Z90.710 Acquired absence of both cervix and uterus; Z90.89 Acquired absence of other organs; Z85.9 Personal history of malignant neoplasm, unspecified
CPT/HCPCS: 36415; 36600; 71010; 74000; 74177; 74250; 76705; 80048; 80053; 82150; 82310; 82803; 83605; 83690; 83735; 83880; 84100; 84484; 85025; 85610; 85730; 86704; 86706; 86803; 87040; 87070; 87081; 87086; 87102; 87340; 88307; 93005; 93306; 96374; 96375; 96376; 97116; 97161; 97166; 97530; J1940; C9113; J0744; J1100; J1170; J1644; J1650; J1885; J2250; J2270; J2370; J2405; J3010; J3370; J3475; J3480; J7030; J7042; J7050; Q9967

== ENCOUNTER 2017-06-26 09:29 | Outpatient (CLI) | payer BC ==
[~2017-06-26] VITALS: Ht 149.9 cm; Wt 53.6 kg
[~2017-06-26 09:29] MED LIST: ENOX40DI12 SC
[2017-06-26 09:39] VITALS: BP 145/61; PULSE 114; RESP 18; Ht 149.9 cm; Wt 53.6 kg
--- NOTE | 2017-06-26 11:37 | PN ---
[facility] OUTPATIENT PROGRESS NOTE PLACE OF SERVICE: [facility] . DATE: 06/26/2017 SUBJECTIVE: The patient returns today as her first postoperative visit after undergoing emergency operation at on 05/23/2017 for bowel obstruction with strangulation and perforation of small intestine. The final pathology at that time demonstrated localized ischemia of bowel wall with transmural perforation, extensive acute inflammation in the adjacent wall and serosa, and acute hemorrhage with fibrin deposition. There was also extensive acute hemorrhage and congestion of the mesentery. The margins were viable and there was no evidence of malignancy. Patient has done relatively well since leaving the hospital and did not have any major complaints of abdominal pain or wound problems. She appeared to be very emotional and had several questions regarding issues that she had perceived during the hospitalization such as why she had to have Lasix during the hospital and why there were issues with IV insertion, and she remembered having hallucinations with Dilaudid. She also expressed concerns about her , and at one point mentioned that she will eventually divorce him. When I asked her about her appetite and any symptoms such as nausea, or vomiting, the patient reported no such issues, and once she had calmed down somewhat, she appeared to confirm that there were no difficulties with eating or having bowel movements. OBJECTIVE VITAL SIGNS: BMI is 23.9. Vital signs are normal with the exception of pulse of 114 and blood pressure 145/61. ABDOMEN: Soft, nondistended and nontender. Incisions were covered with dressings that the patient herself had put on. I took those dressings off, and there were intact wounds still being held by madison, both in the midline and on the left side with laparoscopic port sites. There was no evidence of erythema, edema, discharge or hernia of the wounds. There was no evidence of organomegaly, caput medusae, engorged subcutaneous veins, or ascites. No peritoneal signs or guarding. SKIN: Appeared to be pink and felt warm to touch. NEUROLOGIC: The patient appeared to be awake, alert, and followed commands appropriately. IMPRESSION AND PLAN: A very pleasant 72-year-old lady status post above- mentioned operation for bowel ischemia and perforation due to internal hernia and strangulation that was causing bowel obstruction, who is doing very well from a physiologic standpoint. I do believe that she is under emotional stress and the burden of recovery has been hard on her. I spent extra time in the office explaining the overall global clinical picture and also the philosophy of having to deal with an issue that she had not planned for herself, but that occurred naturally as a consequence of life itself. Fortunately, there are no major issues that I see that require surgical intervention, and I believe that with further time that the patient's recovery will be ongoing. We are hoping that the patient does not have any of the known complications from this extensive of an operation which do include but are not limited to future issues with bowel obstruction, internal herniation, wound problems or other problems. I explained all the above in detail to the patient (no family present in the room) and answered all of the patient's questions to the best of my ability. The patient appeared to understand and agreed with the plans. With above assessments, I have recommended the followin. Follow up with primary care physician. 2. Maintain a healthy lifestyle with healthy eating habits as well as consistent daily exercise. 3. Follow up with us on an as-needed basis. Thank you again for allowing us to participate in the care of this very pleasant lady and her wonderful family. If there are any questions, please feel free to contact me at [phone]. Nature of presenting problem: High risk. Complex of original decision making: High complexity. Updated Clinical Summary: A very-pleasant 72-year-old lady with a few comorbidities including multiple operations in the past, presenting with a picture consistent with high-grade small bowel obstruction. Comorbidities: 1. Small bowel obstruction with bowel strangulation within pelvis internal hernia, bowel gangrene with perforation (localized). S/p an otherwise uncomplicated laparoscopic, hand-assisted reduction of internal hernia with partial enterectomy (terminal ileum, 10 cm) with primary anastomosis, repair of several serosal tears (all outer serosa and no full-thickness enterotomies; approximately 6 proximal to the area of anastomosis) and abdominal lavage at [facility] 05/23/17 with findings that were consistent with herniation of loop of terminal ileum into prior RAVEN/BSO cavity that had formed remnants of an internal ring and cause bowel strangulation, necrosis and localized perforation. 2. BMI 28.4 3. Hypertension 4. Diverticulosis 5. Surgery for endometriosis 6. RAVEN/BSO 7. Appendectomy (patient mentioned malignancy in the 1970s, but did not have any further details; no recent issues with malignancy, weight loss or other major concerns) 8. Cholelithiasis 9. Albumin 2.7 after resuscitation Dictated By: JOSE ENRIQUE CLARK/LAKIA Conf#: [id number] DID#: [id number]
== END 2017-06-26 16:40 | disposition home or self-care (01) ==
LOC: HPC 09:29
PROVIDERS: ATTEND Transplant Surgery
DX: K56.699 Other intestinal obstruction unspecified as to partial versus complete obstruction (principal); I10 Essential (primary) hypertension; K57.90 Diverticulosis of intestine, part unspecified, without perforation or abscess without bleeding; K80.20 Calculus of gallbladder without cholecystitis without obstruction
CPT/HCPCS: G0463